=== PATIENT | female | born 1995 | race Caucasian/White ===

== ENCOUNTER 2018-04-04 01:09 | Outpatient (CLI) | payer BC, SELFPAY ==
--- NOTE | 2018-04-04 14:35 | DI.MRI_ITS ---
SYMPTOMS/DIAGNOSIS: RT KNEE INJURY, ACUTE TRAUMATIC INTERNAL DERANGEMENT, S83.104A MRI OF THE RIGHT KNEE: Comparison is made with plain films from [facility] dated [id number]. Proton density and fat suppressed T 2 sagittal, T 1 and fat suppressed T 2 coronal, fat suppressed T 2 axial and proton density oblique sagittal sequences were performed. There is mild edema in the anterior subcutaneous fat. No focal drainable collection is seen. Cruciate and collateral ligaments and extensor mechanism appear intact. No meniscal tears are seen. There is a minimal joint effusion. No cartilage defects are identified. IMPRESSION: Mild anterior soft tissue edema and minimal joint effusion. No evidence of ligament or meniscal tear.
== END 2018-04-04 01:29 ==
PROVIDERS: Visit Provider Student in an Organized Health Care Education/Training Program
DX: S83.104A Unspecified dislocation of right knee, initial encounter (principal); M79.89 Other specified soft tissue disorders; M25.461 Effusion, right knee
CPT/HCPCS: 73721

== ENCOUNTER 2019-09-16 02:14 | Outpatient (CLI) | payer BC, SELFPAY ==
--- NOTE | 2019-09-16 09:28 | DI.MRI_ITS ---
EXAM: MR LOWER JOINT RT WO CLINICAL HISTORY: RT KNEE PAIN, M25.561, CRUSH INJURY, S87.00XA. TECHNIQUE: Multiplanar multisequence MRI was performed.. COMPARISON: MR lower joint RT wo from 04/04/2018 FINDINGS: MR examination of the knee was performed according to the usual protocol. There is no significant bon y signal abnormality seen. The articular cartilage of all three joints appears within normal limits. The extensor mechanism appears normal. No retinacular injury. Hoffa fat pad is unremarkable. Cruciate ligaments appear intact. Menisci and attachments appear normal with no evidence of tear. No collateral ligament injury or posterolateral corner abnormality seen. IMPRESSION: Negative knee MRI. DATA REPOSITORY:
== END 2019-09-16 02:34 ==
PROVIDERS: PCP Family Medicine; Visit Provider Student in an Organized Health Care Education/Training Program
DX: M25.561 Pain in right knee (principal)
CPT/HCPCS: 73721

== ENCOUNTER 2019-10-17 15:45 | Outpatient (REF) | payer BC, SELFPAY ==
--- NOTE | 2019-10-17 13:30 | PAPFT_PTH ---
PATIENT: Bridget Chowdary LOC: [facility] U#:[id number] AGE/SX: 24/F ROOM: RE10/17/[address]: Sandra Garner : 1995 BED: DIS: 10/17/2019 SPEC #: [id number] RECD: 10/20/19 12:24 STATUS: LUISA REQ #: [id number] NEFTALI: 10/17/19 13:[address]: Sandra Garner DEPT: [facility] Cytology RECD BY: Sanchez Richardson ENTERED: 10/20/19 12:25 SP TYPE: PAPFT OTHR DR: Keith Campo Tissues: 1 - CX/ENDOCX FOR PAP SMEARS Procedures: PAP THIN PREP/UVM Screening Comments: [id number]
[2019-10-17 16:16] LABS: Abs Immature Grans 0.03 k/cumm (0.0-0.09); Absolute Basophil Count 0.02 k/cumm (0.0-0.2); Absolute Eosinophil Count 0.19 k/cumm (0.0-0.7); Absolute Monocyte Count 0.41 k/cumm (0.11-0.7); Basophils % 0.2; Eosinophils % 1.7; HCT 35.7 % (36.0-46.0); HGB 11.9 g/dL (12.0-15.5); Immature Grans % 0.3 %; Lymphocytes % 18.1; Mean Corp. HGB Concentration 33.3 g/dL (32.0-36.0); Mean Corpuscular Hemoglobin 29.9 pg (27.0-33.0); Mean Corpuscular Volume 89.7 fL (80-95); Monocytes % 3.7; Platelet Count 385 x1000/uL (130-400); RBC 3.98 m/cumm (4.00-5.20); RBC Distribution Width 12.4 % (11.7-14.6); White Blood Cell Count 11.02 k/cumm (4.4-10.8)
[2019-10-17 16:23] LABS: Absolute Lymphocyte Count 1.99 k/cumm (1.2-3.4); Absolute Neutrophil Count 8.38 k/cumm (1.2-6.7)
[2019-10-17 16:25] LABS: Glucose,1 Hr (Glucola) 130 mg/dL (80-140)
[2019-10-17 16:39] LABS: TSH (W/Ref FT4) 0.62 uIU/mL (0.36-3.74)
[2019-10-17 18:09] LABS: *AMPHETAMINES SCREEN URINE Negative (Negative); *BARBITURATES SCREEN URINE Negative (Negative); *BENZODIAZEPINES SCREEN URINE Negative (Negative); Cannabinoids THC Negative (Negative); Cocaine Screen,Urine Negative (Negative); METHADONE URINE SCREEN Negative (Negative); OPIATES URINE SCREEN Negative (Negative)
[2019-10-17 18:13] LABS: Tricyclic Antidepressants Negative (Negative)
[2019-10-20 11:00] LABS: Hepatitis B Surface Ag Negative (Negative)
[2019-10-20 11:14] LABS: HIV-1/2 Ag & Ab Screen Negative (Negative)
[2019-10-20 11:23] LABS: Hepatitis C Ab w Rflx HCV PCR Negative (Negative)
[2019-10-20 15:33] LABS: Chlamydia Result Negative (Negative); GC Result Negative (Negative)
[2019-10-21 07:04] LABS: Buprenorphine Negative; Norbuprenorphine Negative
[2019-10-21 12:21] LABS: Varicella IgG Antibody Positive (See Note)
[2019-10-21 12:32] LABS: Rubella IgG Ab (UVM) Positive (See Note); Syphilis Serology (RPR) Negative (Negative)
[2019-10-24 12:49] LABS: Specimen WB Whole Blood
[2019-10-24 15:18] LABS: Result Summary POSITIVE CARRIER (Negative); Specimen WB Whole Blood
== END 2019-10-17 16:05 ==
LOC: LBN 15:45
PROVIDERS: PCP Family Medicine; Visit Provider Advanced Practice Midwife
DX: Z34.91 Encounter for supervision of normal pregnancy, unspecified, first trimester (principal); Z11.4 Encounter for screening for human immunodeficiency virus [HIV]; Z11.3 Encounter for screening for infections with a predominantly sexual mode of transmission; Z11.59 Encounter for screening for other viral diseases; Z01.84 Encounter for antibody response examination; Z36.89 Encounter for other specified antenatal screening; Z12.4 Encounter for screening for malignant neoplasm of cervix
CPT/HCPCS: 80055; 80307; 81329; 82950; 86787; 86803; 86850; 86900; 86901; 87340; 87389; 87491; 87591; 88142; 81220; 84443; 86592; 86762; 87086

== ENCOUNTER 2019-10-23 09:12 | Outpatient (CLI) | payer BC, SELFPAY | END 2019-10-23 09:32 | PROVIDERS: PCP Family Medicine; Visit Provider Advanced Practice Midwife | DX: Z34.91 Encounter for supervision of normal pregnancy, unspecified, first trimester (principal); Z36.89 Encounter for other specified antenatal screening ==

== ENCOUNTER 2019-12-15 00:45 | Outpatient (CLI) | payer OTHER, SELFPAY ==
--- NOTE | 2019-12-15 07:15 | DI.US_ITS ---
EXAM: US OB 2-3 TRIMESTER CLINICAL HISTORY: routine pnc,O26.92. TECHNIQUE: Transabdominal obstetrical ultrasound performed. COMPARISON: No exams were available for comparison FINDINGS: Transabdominal obstetrical ultrasound performed. There is a single living intrauterine gestation. The fetus is in the cephalic presentation. h eart rate is 141 beats per minute. No anatomic abnormalities are identified. Amniotic fluid ap pears within normal limits visually. The placenta is anterior without evidence of previa. The place ntal tip is 3.75 cm from the internal cervical os. Estimated gestational age is 18 weeks 5 days. IMPRESSION: 1. Single live intrauterine gestation as above. 2. Normal anatomic survey. DATA REPOSITORY:
== END 2019-12-15 01:05 ==
PROVIDERS: PCP Family Medicine; Visit Provider Advanced Practice Midwife
DX: O26.92 Pregnancy related conditions, unspecified, second trimester (principal); Z3A.18 18 weeks gestation of pregnancy
CPT/HCPCS: 76805

== ENCOUNTER 2019-12-15 10:26 | Outpatient (CLI) | payer OTHER, SELFPAY ==
[2019-12-17 11:42] LABS: AFP 28.9 ng/mL; Cigarette smoking status non-Smoker; GA used in risk estimate Scan estimate; IVF Pregnancy No; Initial or repeat testing Initial testing; Insulin dependent diabetes No; Maternal Weight 207 lbs; Number of Fetuses 1; Physician Phone Number 802-748-7300; Prev Pregnancy w/NTD No; RECOMMENDED FOLLOW UP None.; Results Summary Normal risk
== END 2019-12-15 10:46 ==
PROVIDERS: PCP Family Medicine; Visit Provider Advanced Practice Midwife
DX: O26.92 Pregnancy related conditions, unspecified, second trimester (principal); Z36.89 Encounter for other specified antenatal screening
CPT/HCPCS: 82105

== ENCOUNTER 2020-02-24 04:51 | Outpatient (CLI) | payer OTHER, SELFPAY ==
[2020-02-24 11:28] LABS: Glucose,1 Hr (Glucola) 142 mg/dL (80-140)
[2020-02-24 11:34] LABS: HCT 31.6 % (36.0-46.0); HGB 10.5 g/dL (11.2-15.7); MCH 29.9 pg (27.0-33.0); MCHC 33.2 % (32.0-36.0); Platelet Count 286 10^3/uL (130-400); RBC 3.51 10^6/uL (3.93-5.22); RDW 13.2 % (11.7-14.6); RDW-SD 42.9 fL; WBC 12.31 10^3/uL (4.4-10.8)
== END 2020-02-24 05:11 ==
PROVIDERS: Advanced Practice Midwife; PCP Family Medicine; Visit Provider Obstetrics & Gynecology Gynecology
DX: Z34.90 Encounter for supervision of normal pregnancy, unspecified, unspecified trimester (principal)
CPT/HCPCS: 36415; 82950; 85027

== ENCOUNTER 2020-02-26 04:22 | Outpatient (CLI) | payer OTHER, SELFPAY ==
[2020-02-26 10:14] LABS: Glucose 1 Hour 176 mg/dL
[2020-02-26 12:17] LABS: Glucose 3 Hour 104 mg/dL
== END 2020-02-26 04:42 ==
PROVIDERS: PCP Family Medicine; Visit Provider Advanced Practice Midwife
DX: Z34.90 Encounter for supervision of normal pregnancy, unspecified, unspecified trimester (principal)
CPT/HCPCS: 36415; 82951

== ENCOUNTER 2020-04-20 09:29 | Outpatient (CLI) | payer OTHER, SELFPAY ==
[2020-04-20 09:36] VITALS: BP 138/86; PULSE 94; TEMP 37.2
[2020-04-20 09:53] VITALS: BP 145/76; PULSE 93
[2020-04-20 09:54] VITALS: BP 145/76; PULSE 93; RESP 20
[2020-04-20 09:55] LABS: HGB 11.4 g/dL (11.2-15.7); MCH 28.9 pg (27.0-33.0); MCHC 32.6 % (32.0-36.0); MCV 88.6 fL (80-95); Platelet Count 258 10^3/uL (130-400); RBC 3.95 10^6/uL (3.93-5.22); RDW 13.3 % (11.7-14.6); RDW-SD 43.3 fL
[2020-04-20 10:03] VITALS: BP 128/74; PULSE 93
[2020-04-20 10:09] LABS: ALT 18 U/L (14-59); AST 14 U/L (15-37); Albumin 2.6 g/dL (3.4-5.0); Alkaline Phosphatase 120 U/L (46-116); Anion Gap 9.7 mmol/L (3-11); BUN 7 mg/dL (7-18); Bilirubin, Total 0.2 mg/dL (0.2-1.0); CO2 22.3 mmol/L (21.0-32.0); CREATININE 0.71 mg/dL (0.55-1.02); Calcium 9.9 mg/dL (8.5-10.1); Chloride 103 mmol/L (98-107); Glucose 98 mg/dL (74-106); Potassium 3.5 mmol/L (3.5-5.1); Sodium 135 mmol/L (136-145); Total Protein 6.7 g/dL (6.4-8.2); Uric Acid 5.5 mg/dL (2.6-6.0)
--- NOTE | 2020-04-20 10:18 | W.OBNST ---
Date of service: 04/20/20 Time of Service: 10:18 NST Evaluation Reason for NST Reasons for Nonstress Test: OTHER, SEE COMMENT Reason for NST Other: Elevated b/p in office Gestational Age Gestational Age in Weeks and Days: 36 Weeks and 1Days Test and Monitor Explained Test/Monitor Explained: Test Explained, Monitor Explained and Patient Verbalized Understanding Vital Signs Blood Pressure: 138/86 Pulse: 94 Temperature: 99.0 F NST Information Date on Monitor: 04/20/20 Time on Monitor: 09:38 Date off Monitor: 04/20/20 Time off Monitor: 10:12 Total Time on Monitor: 34 NST Interventions: PO Hydration and Meal Given NST Evaluation Patient States Movement: Present FHR Baseline: 135 Variability: Moderate 6-25 bpm Accelerations: 15x15 Decelerations: None NST Results: Reactive Note NST Note Note: B.P. elevated at her office appointment today. The Blood pressure was lower x 3 at NST. Reactive NST. Bridget will take her own B.P this week as she is R.N. and report elevated B.P. Labs WNL. awaiting protein/creatinene ratio. RTO in 1 week. Signs of preeclampsia reviewed. NST Reviewed and Verified by: Sandra Garner
[2020-04-20 10:22] VITALS: BP 138/86; PULSE 94; TEMP 37.2
[2020-04-20 11:03] LABS: *AMPHETAMINES SCREEN URINE Negative (Negative); *BARBITURATES SCREEN URINE Negative (Negative); *BENZODIAZEPINES SCREEN URINE Negative (Negative); Cannabinoids THC Negative (Negative); Cocaine Screen,Urine Negative (Negative); METHADONE URINE SCREEN Negative (Negative); OPIATES URINE SCREEN Negative (Negative)
[2020-04-20 11:05] LABS: Tricyclic Antidepressants Negative (Negative)
[2020-04-20 11:08] LABS: PROTEIN 11.2 mg/dL
[2020-04-20 11:12] LABS: COMMENT (LAB VIEW ONLY) 75.53 mg/dL; Prot/Crea Ur Ratio 0.14
[2020-04-27 08:28] LABS: Buprenorphine Negative; Norbuprenorphine Negative
== END 2020-04-20 10:20 | disposition home or self-care (01) ==
LOC: BCD 09:30 → OBS 09:50
PROVIDERS: Advanced Practice Midwife; PCP Family Medicine; Visit Provider Advanced Practice Midwife
DX: O26.893 Other specified pregnancy related conditions, third trimester (principal); R03.0 Elevated blood-pressure reading, without diagnosis of hypertension; Z3A.36 36 weeks gestation of pregnancy
CPT/HCPCS: 36415; 59025; 80053; 80307; 85027; 82565; 84156; 84550; 87081

== ENCOUNTER 2020-05-08 15:33 | Inpatient (IN) | payer OTHER, BC, SELFPAY ==
[2020-05-08] VITALS (11 sets, daily range): BP systolic 123–139; BP diastolic 64–85; PULSE 63–118; RESP 18; TEMP 36.7–36.8; O2SAT 98–99
[2020-05-08 16:11] LABS: HCT 35.8 % (36.0-46.0); HGB 11.9 g/dL (11.2-15.7); MCHC 33.2 % (32.0-36.0); MCV 87.1 fL (80-95); MPV 10.7 fL (8.0-11.0); Platelet Count 261 10^3/uL (130-400); RBC 4.11 10^6/uL (3.93-5.22); RDW 13.7 % (11.7-14.6); WBC 12.86 10^3/uL (4.4-10.8)
--- NOTE | 2020-05-08 16:22 | HPE_ITS ---
Date of service: 05/08/20 Time of Service: 16:22 Assessment and Plan Assessment and plan (1) Uterine contractions: Start date: 05/08/20 Start time: 07:30 Status: Acute Assessment and plan: Admit to Center. Comfort measures. Covid- 19 test. Anticipate . OB-HPI Labor/Delivery History of Present Illness Reason for Visit: TERM LABOR Chief Complaint: Uterine Contractions. ANDRE Calculator Estimated Delivery Date Method Current WG Current Estimate 05/17/20 LMP (Certain) 38w 5d Other Estimates 05/15/20 Ultrasound #1 39w 0d Comments: Strong regular contractions at home with scant bloody show. Having regular contractions. Neg GBS. Used the tub after arrival and membranes ruptured spontaneously for clear fluid. History of Present Expected Delivery Route/Plan - CNM FOB/: Stephen Chowdary BG- Mary Grace GBS negative Specific Issues/Plan 1. Desires [place], CF and SMA. SMA and CF drawn 10/17/19. [place] to be drawn after 10 weeks, 1a. 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 Pt notified 10/23, will have FOB tested SAMY. 1b. Partner will be tested when he is on new health plan in November. Offered anatomy scan at [facility] with genetic counseling. 1c. 12/15/19: Pt decided not to pursue [facility] genetic counseling or level II usg. 1d. 12/15/19: AFP result low risk for NTD 1e. FOB had CF/SMA testing, is carrier screen negative for both CF & SMA 2. Elevated BMI - ASA daily at 12 weeks, early 1-hr VLQ=383 2a. GTT 142 - 3-hr GTT nml x4 3. Anemia H and H 10.5/31.6 , discuss regular PN vitamin with iron use Assessment: History Reviewed & Current [facility] Surgical History (Updated 10/17/19 @ 14:10 by Sandra Garner CNM) S/P tonsillectomy Family History (Updated 10/17/19 @ 14:28 by Sandra Garner CNM) Mother Breast cancer Thyroid disorder Graves disease - thyroidectomy Maternal Grandmother Breast cancer Paternal Grandmother Breast cancer Sister Diabetes type 1, half sister Father Gout High bone marrow iron stores Social History Smoking/Tobacco Use Status: Never Smoking risk assessment performed?: Yes Alcohol Intake: never Substance use type: does not use Current gender identity: female Do you feel safe at home: Yes Do you feel safe in your relationship?: Yes History History 2 Para 0 Hx # Term Pregnancies 0 Multiple births 0 Hx # Pregnancies 0 Ectopic pregnancies 0 AB induced 0 Hx Number of Living Children 0 AB spontaneous 1 Meds Home Medications and Allergies Home Medications Medication Instructions Recorded Confirmed Type aspirin 81 mg tablet,delayed 81 mg PO DAILY 11/14/19 05/08/20 History release pediatric [id number] 1 tab PO DAILY 02/09/20 05/08/20 History breast pump #1 05/05/20 05/08/20 Rx Allergies Allergy/AdvReac Type Severity Reaction Status Date / Time Penicillins Allergy Severe SERUM Verified 05/05/20 11:20 SICKNESS Exam Physical Exam Vital signs: Temp Pulse BP 98.2 F 107 H 139/78 05/08/20 15:56 05/08/20 15:53 05/08/20 15:53 Vital Signs Reviewed: Yes Constitutional Constitutional: no acute distress Detailed Labor and Delivery Exam Dilation: 5 Effacement (%): 100 station: -3 Cervix position: mid Consistency: soft Pisano Score: Cervical Points Exam 0 1 2 3 Dilation Closed 1-2cm 3-4 cm 5-6cm Effacement 0-30% 40-50% 60-70% 80% Consistency Firm Medium Soft Station -3 -2 -1,0 +1,+2 Position Posterior Mid Anterior Amniotic Membrane Status: Ruptured Rupture Method: Spontaneous Pooling: Positive Nitrazine: Positive Fetus A Heart Rate Baseline: 140 Monitor Accelerations: 15 X 15 Monitor Decelerations: None Variability: Moderate (6-25 BPM) Presentation: Cephalic Categories: Category I Est. Weight: 8 lb 8 oz Date of Membrane Rupture: 05/08/20 Time of Membrane Rupture: 16:14 Respiratory Exam Respiratory Exam: Normal Cardiovascular Exam Cardiovascular Exam: Normal Abdominal Exam Abdominal Exam: Normal Rectal Exam Rectal Exam: Normal Exam Exam: Normal Extremities Exam Extremities Exam: Normal Back/Spine/Pelvis Exam Pelvis Adequate: Yes Skin Exam Skin Exam: Normal Psychiatric Exam Psychiatric Exam: Normal Results Results Group Beta Strep: Negative Blood Type: A+ Rubella Status: Immune Varicella Immunity: Immune Abnormal Lab Findings: Abnormal Labs 05/08/20 14:00 WBC 12.86 H Hct 35.8 L Risk Assessment Risk for Shoulder Dystocia Historical/Initial OB: POSITIVE FOR: Pre- BMI>30; NEGATIVE FOR: Pelvic Abnormality, Previous Shoulder Dystocia or Previous Macrosomia 40 Weeks: NEGATIVE FOR: EFW> 4500 gms, Maternal Weight Gain >40lb or Post Dates Increased Risk?: No Delivery Plan @ 36wks: spont labor and Risk for Pre-Eclampsia Daily Dose ASA Indicated: Yes (pre preg bmi >30 , familial hx of pre-e) Date Initiated/Initials: started ASA after 12 wks Yes, if one or more: NEGATIVE FOR: Hx Pre-E/Gest HTN, Chronic HTN, Multiple Gestation, Pre-gestational DM, Renal Disease, Systemic Lupus or APA Syndrome Yes, if 2 or more: POSITIVE FOR: Nulliparity, BMI>30 and Mother/Sister w/ Pre-E; NEGATIVE FOR: Age>= 35 yrs, >10yr btwn pregnancies, ethinicty or Previous IUGR Risk for Post- Hemorrhage Initial: NEGATIVE FOR: Multiple Gestation, Previous PPH, Known Clotting Deficiency, Grand Multiparity or Anticoagulation At Risk?: No Counseled re: Active Management: Yes Date/Initials: @ 36 wks: pt aware of elements of active mangmnt Risks Reviewed Risks Reviewed Upon Admission: Yes
[2020-05-08] MEDS: Oxytocin 10 UNITS/ML VIAL IM (17:30)
--- NOTE | 2020-05-08 18:07 | W.OBDELIVERY ---
Date of service: 05/08/20 Time of Service: 18:08 OB Labor/ Delivery Information Baby A Delivery Delivery Method: Spontaneaous Presentation: Cephalic Cephalic Position: Vertex Vertex Position: Left Occipital Transverse Cord Description-Baby A: 3 Vessels Amniotic Fluid: Clear Estimated Blood Loss: 350 Delivery Outcome: Liveborn Infant Transferred: Remains with Mother Note: FHTs 120-130 during first stage of labor. FHTs 118-120 in second stage. Progressed to full dilation and began pushing. Spontaneous delivery of female infant delivered in occiput transverse position with transverse shoulders. Baby was placed on mother's abdomen and dried and stimulated. Spontaneous cry. Cord was clamped and cut by the baby's father . The placenta delivered spontaneously and appears to by intact with a three vessel cord. Pitocin 10 units IM was administered after delivery of the placenta. The perineum was inspected and a 2nd degree laceration was repaired under local anesthetic and Bridget tolerated repair well. The baby did breastfeed. After delivery, Mother and baby Mary Grace and father of the baby were stable and bonding well in the delivery room. Providers Doctor: Sandra Garner Nurse Design Engineering Intern: Sandra Garner Nurse: Danette Kaur Nurse: Betty Beaulieu Labor/Delivery Information Number of Babies in Womb: 1 Steroids Given: None Reason Steroids Not Administered: N/A Group Beta Strep: N/A Antibiotics Administered: No Rubella Status: Immune Blood Type: A+ Varicella Immunity: Immune Medication in Delivery: none Maternal Complications: None Shoulder Dystocia: No Stages of Labor Onset of Labor Date: 05/08/20 ROM Baby A: 05/08/20 ROM Baby A: 16:14 ROM Total Time- Baby A: [id number] Delivery Date-Baby A: 05/08/20 Delivery Time-Baby A: 17:23 Placenta Delivery Date-Baby A: 05/08/20 Placenta Delivery Time-Baby A: 17:30 Labor-Stage 3 Duration: 7 minutes Placenta Status: Delivered Baby A Infant Gender: Female Gestational Status: Early Term (37-38.6 wks) Gestational Age in Weeks/Days: 38 Weeks and 5 Days Score-1 Minute Interval(Baby A) Heart Rate-1 minute: 100 BPM or Greater Respiratory Effort- 1 minute: Spontaneous/Strong Cry Muscle Tone-1 minute: Active Movement Reflex Response-1 minute: Prompt Response Color-1 minute: Bluish Hands or Feet Total Score-1 minute: 9 Score-5 Minute Interval(Baby A) Heart Rate- 5 minute: 100 BPM or Greater Respiratory Effort-5 minute: Spontaneous/Strong Cry Muscle Tone-5 minute: Active Movement Reflex Response-5 minute: Prompt Response Color-5 minute: Bluish Hands or Feet Total Score- 5 minute: 9 Interventions Repair of Laceration Type: Perineal , Laceration Extension: Second Degree . Sponge Count Correct: No Sponges Placed in Vagina , Sharp Count Correct: Yes .
[2020-05-09 06:28] LABS: HCT 30.8 % (36.0-46.0); HGB 10.2 g/dL (11.2-15.7); MCH 29.3 pg (27.0-33.0); MCHC 33.1 % (32.0-36.0); MCV 88.5 fL (80-95); MPV 10.6 fL (8.0-11.0); Platelet Count 254 10^3/uL (130-400); RBC 3.48 10^6/uL (3.93-5.22); RDW 13.6 % (11.7-14.6); RDW-SD 43.8 fL; WBC 16.19 10^3/uL (4.4-10.8)
[2020-05-09 09:45] VITALS: BP 99/66; PULSE 89; RESP 16; TEMP 37; O2SAT 99
--- NOTE | 2020-05-09 14:28 | NUR.NOTE ---
Chris RN CLC at bedside for consultNursing Note:
--- NOTE | 2020-05-09 17:26 | W.PM.OBDISCH ---
Date of service: 05/09/20 Time of Service: 17:26 DS: Diagnosis Discharge Diagnosis (1) Normal vaginal delivery: Status: Acute Asessment and Plan: Caring for baby independently. Pain is managed well with oral analgesics. Voiding without difficulty. well. She is receiving assistance with latch due to sore nipples. A - stable mother and baby , Post day 1 P - Discharge to home . Routine post instructions. [facility] Discharge Plan Disposition Patient Disposition: HOME Condition: Good Discharge Details Reason For Visit: TERM LABOR Admit Date/Time: 05/08/20 15:33 Admit Provider: Sandra Garner Attending Provider: Sandra Garner Primary Care Provider: Keith Campo Home Meds and New Rx's Prescriptions: No Action Flintstones Complete (iron) Tablet,Chewable 1 tab PO DAILY RF: 0 (DME) breast pump Device See Rx Instructions .ROUTE .MEDSUPPLY Qty: 1 RF: 0 aspirin [Aspirin Low Dose] 81 mg tablet,delayed release (DR/EC) 81 mg PO DAILY RF: 0 Discharge Instructions Instructions: Vaginal Delivery (DC) Activity:: Activity as Tolerated Equipment/Supplies:: No Equipment Needed Diet:: Normal Diet Discharge Orders Discharge Orders: Discharge Order (Routine); Ordered 05/09/20 Ordered By: Sandra Garner OB:DS Summary Summary Vaginal Delivery Method: Spontaneaous Laceration Description: Perineal Laceration Extension: Second Degree Contraception Discussed Contraception Discussed: No, Infant Gender-Baby A: Female weight: 8 lb 3.396 oz Status at Discharge Functional status at discharge: independent ambulation Overall status at discharge: patient is back to baseline Mental Status: mental status grossly normal Speech and Movement: speech and movement normal Mood: congruent mood Affect: normal affect Exam Physical Exam Vital signs: Temp Pulse Resp BP Pulse Ox 98.6 F 89 16 99/66 L 99 05/09/20 09:45 05/09/20 09:45 05/09/20 09:45 05/09/20 09:45 05/09/20 09:45 Vital Signs Reviewed: Yes Constitutional Constitutional: no acute distress Breast Exam tenderness nipples bilaterally: Nipple Exam: Other (cracking of right nipple) Abdominal Exam Comments: no tenderness Fundal Exam Fundus: Below Umbilicus Rectal Exam Rectal Exam: Normal Exam Patient deferred: external exam Perineum: Other (well- approximated) Extremities Exam Extremity Exam: Normal Skin Exam Skin Exam: Normal Psychiatric Exam Psychiatric Exam: Normal [facility] Surgical History (Updated 10/17/19 @ 14:10 by Sandra Garner CNM) S/P tonsillectomy Family History (Updated 10/17/19 @ 14:28 by Sandra Garner CNM) Mother Breast cancer Thyroid disorder Graves disease - thyroidectomy Maternal Grandmother Breast cancer Paternal Grandmother Breast cancer Sister Diabetes type 1, half sister Father Gout High bone marrow iron stores Social History Smoking/Tobacco Use Status: Never Smoking risk assessment performed?: Yes Alcohol Intake: never Substance use type: does not use Current gender identity: female Do you feel safe at home: Yes Do you feel safe in your relationship?: Yes History History 2 Para 0 Hx # Term Pregnancies 0 Multiple births 0 Hx # Pregnancies 0 Ectopic pregnancies 0 AB induced 0 Hx Number of Living Children 0 AB spontaneous 1 DS: Data Vitals/I&O Vitals and I&O: Vital Signs Temperature 98.6 F 05/09/20 09:45 Pulse 89 05/09/20 09:45 Pulse Rhythm Regular 05/09/20 09:45 Respiratory Rate 16 05/09/20 09:45 Respiratory Depth Normal 05/08/20 23:47 Blood Pressure 99/66 L 05/09/20 09:45 Blood Pressure Mean 77 05/09/20 09:45 Pulse Oximetry 99 05/09/20 09:45 Oxygen Delivery Method Room Air 05/08/20 15:56 Oxygen Flow Rate 0 05/08/20 15:56 Pain Level 1 05/09/20 09:45 Intake & Output 05/08/20 05/09/20 05/09/20 23:59 11:59 23:59 Output Total 550 / 550 Balance -550 / -550 Weight 219 lb Output: Urine 550 / 550 Other: Urine Color Yellow Yellow Data Completed and Pending Labs on day of discharge: Labs from last 24 hours 05/09/20 06:17 WBC 16.19 H RBC 3.48 L Hgb 10.2 L Hct 30.8 L MCV 88.5 MCH 29.3 MCHC 33.1 RDW 13.6 Plt Count 254 MPV 10.6
[2020-05-10 17:30] LABS: COVID-19 RT-PCR UVMMC Result Negative (Negative)
[2020-05-12 18:55] VITALS: BP 139/87; PULSE 93
== END 2020-05-09 18:45 | disposition home or self-care (01) | DRG 807 ==
PROVIDERS: Admitting Provider Advanced Practice Midwife; PCP Family Medicine; Visit Provider Advanced Practice Midwife
DX: O70.1 Second degree perineal laceration during delivery (principal); Z37.0 Single live birth; O92.29 Other disorders of breast associated with pregnancy and the puerperium; Z3A.39 39 weeks gestation of pregnancy; Z11.59 Encounter for screening for other viral diseases; Z67.10 Type A blood, Rh positive
CPT/HCPCS: 36415; 85027; 86850; 86900; 86901; U0003; J2590

== ENCOUNTER 2020-05-10 09:12 | Outpatient (CLI) | payer OTHER, SELFPAY | END 2020-05-10 09:32 | PROVIDERS: PCP Family Medicine; Visit Provider Advanced Practice Midwife | DX: R69 Illness, unspecified (principal) | CPT/HCPCS: E0602 ==

== ENCOUNTER 2020-06-23 21:01 | Outpatient (REF) | payer OTHER, BC, SELFPAY ==
[2020-06-26 08:03] LABS: Chlamydia Result Negative (Negative); GC Result Negative (Negative)
== END 2020-06-23 21:21 ==
LOC: LBO 21:01
PROVIDERS: PCP Family Medicine; Visit Provider Advanced Practice Midwife
DX: Z39.2 Encounter for routine postpartum follow-up (principal); Z30.430 Encounter for insertion of intrauterine contraceptive device
CPT/HCPCS: 87491; 87591

== ENCOUNTER 2021-03-31 19:10 | Outpatient (REF) | payer OTHER, SELFPAY ==
[2021-04-02 11:43] LABS: COVID-19 RT-PCR UVMMC Result Negative (Negative)
== END 2021-03-31 19:11 | disposition home or self-care (01) ==
LOC: LBN 19:10
PROVIDERS: Visit Provider Nurse Practitioner Family
DX: Z20.822 Contact with and (suspected) exposure to COVID-19 (principal)
CPT/HCPCS: U0003

== ENCOUNTER 2021-07-20 11:24 | Outpatient (CLI) | payer OTHER, SELFPAY ==
[2021-07-20 12:04] LABS: Source Nasal/Nares
[2021-07-20 12:46] LABS: COVID-19 PCR Negative (Negative)
== END 2021-07-20 11:25 | disposition home or self-care (01) ==
LOC: LBN 11:29
PROVIDERS: Visit Provider Obstetrics & Gynecology
DX: Z20.822 Contact with and (suspected) exposure to COVID-19 (principal)
CPT/HCPCS: 87635

== ENCOUNTER 2021-10-06 15:21 | Outpatient (REF) | payer OTHER, SELFPAY ==
[2021-10-06 12:19] LABS: HCG Quant, Pregnancy 29 mIU/mL (1-3)
== END 2021-10-06 15:22 | disposition home or self-care (01) ==
LOC: LBN 15:21
PROVIDERS: Visit Provider Advanced Practice Midwife
DX: N92.6 Irregular menstruation, unspecified (principal)
CPT/HCPCS: 84702

== ENCOUNTER 2021-10-10 08:10 | Outpatient (REF) | payer OTHER, SELFPAY ==
[2021-10-10 08:57] LABS: HCG Quant, Pregnancy 8 mIU/mL (1-3)
== END 2021-10-10 08:11 | disposition home or self-care (01) ==
LOC: LBN 08:10
PROVIDERS: Visit Provider Advanced Practice Midwife
DX: N92.5 Other specified irregular menstruation (principal)
CPT/HCPCS: 84702

== ENCOUNTER 2022-04-29 08:30 | Outpatient (REF) | payer OTHER, SELFPAY ==
[2022-04-30 18:50] LABS: Estradiol 28 pg/mL (See Note); Progesterone 0.3 ng/mL (See Table)
[2022-05-01 09:11] LABS: FSH 8.3 mIU/mL (See Note); LH 4.7 mIU/mL (See Note)
[2022-05-01 09:55] LABS: Insulin 14.8 uIU/mL (<29.0)
[2022-05-02 09:31] LABS: Antimullerian Hormone 1.4 ng/mL (0.89-9.9)
[2022-05-05 21:12] LABS: Testosterone, Free 0.42 ng/dL (<0.13-1.06); Testosterone, Total 17 ng/dL (8-60)
== END 2022-04-29 08:31 | disposition home or self-care (01) ==
LOC: LBN 08:30
PROVIDERS: Visit Provider Advanced Practice Midwife
DX: Z31.9 Encounter for procreative management, unspecified (principal)
CPT/HCPCS: 84402; 84403; 82670; 83001; 83002; 83520; 83525; 84144; 84146

== ENCOUNTER 2022-06-11 12:07 | Outpatient (CLI) | payer OTHER, SELFPAY ==
[2022-06-11 13:20] LABS: HCG Quant, Pregnancy 3067 mIU/mL (1-3)
== END 2022-06-11 12:08 | disposition home or self-care (01) ==
LOC: LBO 12:07
PROVIDERS: Visit Provider Advanced Practice Midwife
DX: O20.8 Other hemorrhage in early pregnancy (principal); Z3A.00 Weeks of gestation of pregnancy not specified
CPT/HCPCS: 84702

== ENCOUNTER 2022-06-20 08:11 | Outpatient (CLI) | payer OTHER, SELFPAY ==
[2022-06-20 09:09] LABS: HCG Quant, Pregnancy 35 mIU/mL (1-3)
== END 2022-06-20 08:12 | disposition home or self-care (01) ==
LOC: BCD 08:13
PROVIDERS: Advanced Practice Midwife; Visit Provider Advanced Practice Midwife
DX: O20.9 Hemorrhage in early pregnancy, unspecified (principal)
CPT/HCPCS: 84702

== ENCOUNTER 2022-06-26 11:20 | Outpatient (CLI) | payer OTHER, SELFPAY ==
[2022-06-26 13:52] LABS: Hemoglobin A1C 5.5 % (<5.7)
[2022-06-26 14:23] LABS: HCG Quant, Pregnancy 3 mIU/mL (1-3); TSH (W/Ref FT4) 1.05 uIU/mL (0.36-3.74)
[2022-06-27 19:28] LABS: Thyroperoxidase Antibody <28 U/mL (<=60)
[2022-06-28 08:58] LABS: Hepatitis B Surface Ag Negative (Negative)
[2022-06-28 10:46] LABS: Hepatitis C Ab w Rflx HCV PCR Negative (Negative)
[2022-06-28 13:25] LABS: Chlamydia Result Negative (Negative); GC Result Negative (Negative)
[2022-06-28 16:25] LABS: HIV-1/2 Ag & Ab Screen Negative (Negative)
[2022-06-28 23:34] LABS: Syphilis IgG w/Reflex Nonreactive (Nonreactive)
[2022-06-29 10:35] LABS: Hep B Core Antibody Negative (Negative)
[2022-06-29 23:17] LABS: Dilute Russell Viper Venom 38.1 secs (25.2-42.2); LA Cascade Summary (See Note); Silica Clotting Time 52.1 secs (30.2-48.4)
[2022-06-30 13:05] LABS: Beta 2 Glycoprotein 1 Ab IgA <9.4 U/mL
[2022-08-01 16:42] LABS: Chromosome Analysis(UVM) (See below)
== END 2022-06-26 11:21 | disposition home or self-care (01) ==
LOC: BCD 11:28 → LBO 12:17
PROVIDERS: Visit Provider Obstetrics & Gynecology
DX: N96 Recurrent pregnancy loss (principal)
CPT/HCPCS: 36415; 86146; 86704; 86803; 87116; 87340; 87389; 87491; 87591; 83036; 84443; 84702; 86147; 86376; 86780; 88230; 88262

== ENCOUNTER 2022-09-06 13:19 | Outpatient (REF) | payer OTHER, SELFPAY ==
[2022-09-06 11:46] LABS: HCG Quant, Pregnancy 496 mIU/mL (1-3)
[2022-09-06 22:30] LABS: Progesterone 17.4 ng/mL (See Table)
== END 2022-09-06 13:20 | disposition home or self-care (01) ==
LOC: LBN 13:19
PROVIDERS: Visit Provider Obstetrics & Gynecology
DX: N91.0 Primary amenorrhea (principal); N96 Recurrent pregnancy loss
CPT/HCPCS: 84144; 84702

== ENCOUNTER 2022-09-13 11:00 | Outpatient (CLI) | payer OTHER, SELFPAY ==
[2022-09-13 13:01] LABS: HCG Quant, Pregnancy 9353 mIU/mL (1-3)
== END 2022-09-13 11:01 | disposition home or self-care (01) ==
LOC: BCD 11:43 → LBO 12:03
PROVIDERS: Visit Provider Obstetrics & Gynecology
DX: N91.0 Primary amenorrhea (principal); N96 Recurrent pregnancy loss
CPT/HCPCS: 84702

== ENCOUNTER 2022-10-27 01:28 | Outpatient (CLI) | payer OTHER, SELFPAY ==
[2022-10-27 14:36] LABS: Abs Immature Grans 0.04 10^3/uL (0.0-0.06); Absolute Basophil Count 0.03 10^3/uL (0.0-0.2); Absolute Eosinophil Count 0.21 10^3/uL (0.0-0.7); Absolute Lymphocyte Count 1.86 10^3/uL (1.2-3.4); Absolute Monocyte Count 0.38 10^3/uL (0.1-0.8); Absolute Neutrophil Count 7.35 10^3/uL (1.2-6.7); Basophils % 0.3; Eosinophils % 2.1; HCT 35.8 % (36.0-46.0); Immature Grans % 0.4; Lymphocytes % 18.8; MCH 29.8 pg (27.0-33.0); MCHC 33.5 % (32.0-36.0); MCV 89 fL (80-95); MPV 9.4 fL (8.0-11.0); Monocytes % 3.9; Neutrophils % 74.5; Platelet Count 330 10^3/uL (130-400); RBC 4.03 10^6/uL (3.93-5.22); RDW 12.4 % (11.7-14.6); RDW-SD 40.8 fL; WBC 9.87 10^3/uL (4.4-10.8)
[2022-10-27 14:45] LABS: Glucose,1 Hr (Glucola) 122 mg/dL (80-140)
[2022-10-30 10:18] LABS: Hepatitis C Ab w Rflx HCV PCR Negative (Negative)
[2022-10-30 10:21] LABS: Hepatitis B Surface Ag Negative (Negative)
[2022-10-30 10:30] LABS: HIV-1/2 Ag & Ab Screen Negative (Negative)
[2022-10-30 10:45] LABS: Rubella IgG Ab (UVM) Positive (See Note); Varicella IgG Antibody Positive (See Note)
[2022-10-31 19:11] LABS: Syphilis IgG w/Reflex Nonreactive (Nonreactive)
== END 2022-10-27 01:29 | disposition home or self-care (01) ==
LOC: LBO 01:28
PROVIDERS: Visit Provider Advanced Practice Midwife
DX: Z34.91 Encounter for supervision of normal pregnancy, unspecified, first trimester (principal); Z3A.11 11 weeks gestation of pregnancy
CPT/HCPCS: 36415; 82950; 86787; 86803; 86850; 86900; 86901; 87340; 87389; 85025; 86762; 86780

== ENCOUNTER 2022-10-27 13:49 | Outpatient (REF) | payer OTHER, SELFPAY ==
--- NOTE | 2022-10-27 13:45 | PAPFT_PTH ---
PATIENT: Bridget Chowdary LOC: [facility] U#:[id number] AGE/SX: 27/F ROOM: RE10/27/[address]: Sandra Soliz CNM : 1995 BED: DIS: 10/27/2022 SPEC #: [id number] RECD: 10/27/22 17:41 STATUS: LUISA REQ #: [id number] NEFTALI: 10/27/22 13:[address]: Sandra Soliz DEPT: [facility] Cytology RECD BY: Juanita Manuel Tissues: 1 - CX/ENDOCX FOR PAP SMEARS Procedures: PAP THIN PREP/UVM Screening Comments: [id number] (CHLAMYDIA/GC)
[2022-10-30 14:36] LABS: Chlamydia Result Negative (Negative); GC Result Negative (Negative)
== END 2022-10-27 13:50 | disposition home or self-care (01) ==
LOC: LBN 13:49
PROVIDERS: Visit Provider Advanced Practice Midwife
DX: Z34.91 Encounter for supervision of normal pregnancy, unspecified, first trimester (principal); Z11.3 Encounter for screening for infections with a predominantly sexual mode of transmission; Z12.4 Encounter for screening for malignant neoplasm of cervix; Z3A.11 11 weeks gestation of pregnancy
CPT/HCPCS: 87491; 87591; 88142; 87086

== ENCOUNTER 2022-12-22 00:06 | Outpatient (CLI) | payer OTHER, SELFPAY ==
--- NOTE | 2022-12-22 06:30 | DI.US_ITS ---
Exam(s) US OB 2-3 TRIMESTER W MOD EXAM: US OB 2-3 TRIMESTER W MOD CLINICAL HISTORY: morphology,z34.90. TECHNIQUE: Transabdominal obstetrical ultrasound performed. COMPARISON: US POCUS EXAM from 09/20/2022 US POCUS EXAM from 10/04/2022 FINDINGS: Number of fetuses: One. position: Variable Placental grade: 1 Placental location: Anterior no evidence of previa. BIOMETRIC DATA: BPD: 47mm = 20+ 1 weeks HC: 181mm = 20+ 4 weeks AC: 161mm = 21+1 weeks FL: 31mm = 19+ 5 weeks Cisterna Magna: 4 mm Cerebellum: 1.8 cm EFW: 356 grms 86% Composite Age: 20+ 3 weeks EDC by US: May 17 Heart Rate: 145BPM Amniotic fluid : Amount of fluid is within normal limits. ANATOMICAL SURVEY: Four-chambered heart: Unremarkable. LVOT: Unremarkable. RVOT: Unremarkable. Left-sided stomach: Unremarkable. urinary bladder: Unremarkable. Bilateral kidneys: Unremarkable. Three-vessel cord: Unremarkable. Cord insertion: Unremarkable. Posterior fossa:Unremarkable. ventricles: Unremarkable. nose: Not well seen lips: Not well seen palate: Unremarkable. spine: Unremarkable. Two arms and two legs: Unremarkable. IMPRESSION: 1. Single live intrauterine gestation as above. 2. Normal anatomic survey. The nose and lips were not well seen. Patient is scheduled t o return 29 December 2022 for additional images. DATA REPOSITORY:
== END 2022-12-22 00:26 ==
PROVIDERS: Visit Provider Advanced Practice Midwife
DX: Z34.90 Encounter for supervision of normal pregnancy, unspecified, unspecified trimester (principal)
CPT/HCPCS: 76805

== ENCOUNTER 2023-02-13 04:28 | Outpatient (CLI) | payer OTHER, SELFPAY ==
[2023-02-13 07:43] LABS: HCT 35.2 % (36.0-46.0); HGB 11.6 g/dL (11.2-15.7); MCH 29.6 pg (27.0-33.0); MCV 90 fL (80-95); MPV 9.7 fL (8.0-11.0); Platelet Count 311 10^3/uL (130-400); RBC 3.92 10^6/uL (3.93-5.22); RDW 13.4 % (11.7-14.6); RDW-SD 43.8 fL; WBC 12.82 10^3/uL (4.4-10.8)
[2023-02-13 07:53] LABS: Glucose,1 Hr (Glucola) 122 mg/dL (80-140)
== END 2023-02-13 04:29 | disposition home or self-care (01) ==
LOC: LBO 04:29
PROVIDERS: Visit Provider Advanced Practice Midwife
DX: Z34.92 Encounter for supervision of normal pregnancy, unspecified, second trimester (principal); Z3A.27 27 weeks gestation of pregnancy
CPT/HCPCS: 36415; 82950; 85027

== ENCOUNTER 2023-04-17 16:12 | Outpatient (REF) | payer OTHER, SELFPAY ==
[2023-04-18 17:58] LABS: *AMPHETAMINES SCREEN URINE Negative (Negative); *BARBITURATES SCREEN URINE Negative (Negative); *BENZODIAZEPINES SCREEN URINE Negative (Negative); Cannabinoids THC Negative (Negative); Cocaine Screen,Urine Negative (Negative); METHADONE URINE SCREEN Negative (Negative); OPIATES URINE SCREEN Negative (Negative)
[2023-04-18 18:03] LABS: Tricyclic Antidepressants Negative (Negative)
== END 2023-04-17 16:13 | disposition home or self-care (01) ==
LOC: LBN 16:12
PROVIDERS: Visit Provider Advanced Practice Midwife
DX: Z34.93 Encounter for supervision of normal pregnancy, unspecified, third trimester (principal); Z88.0 Allergy status to penicillin
CPT/HCPCS: 80307; 87081

== ENCOUNTER 2023-05-01 15:35 | Inpatient (IN) | payer OTHER, SELFPAY ==
[2023-05-01] VITALS (9 sets, daily range): BP systolic 128–140; BP diastolic 60–86; PULSE 82–110; RESP 17–18; TEMP 36.8
--- NOTE | 2023-05-01 16:11 | HPE_ITS ---
Date of service: 05/01/23 Time of Service: 15:35 Assessment and Plan Assessment and plan (1) 38 weeks gestation of : Status: Acute Assessment and plan: A: 27 yo @ 38+1 wks Spontaneous onset labor, unknown SROM 2nd stage of labor low risk for SD and PPH, category 1 tracing P: Preparing for imminent delivery OB-HPI Labor/Delivery History of Present Illness Reason for Visit: Term Labor Chief Complaint: Other (feeling urge to push). ANDRE Calculator Estimated Delivery Date Method WG Current Estimate 05/14/23 Manual Other Estimates 05/13/23 Ultrasound #1 Delivery Date-Baby A 05/01/23 38w 1d History of Present Expected Delivery Route/Plan - CNM FOB/ - Stephen Chowdary (2nd child together) BG Likes to use the shower for labor, Stephen will be support GBS negative Specific Issues/Plan 1. CF and SMA Carrier - FOB tested 2019 and negative. 2. Hx of loss - Nml US x2, left CL cyst, vaginal progesterone until 12 weeks. 3. BMI 35 - early [id number]=115 4. Anatomy scan with limited views of face, repeat US shows normal anatomy 5. Right SI joint pain, seeing chiropractor & sleeve setter 6. Tdap given 02/28/23; Flu vaccine 04/13; RSV 04/13 Assessment: History Reviewed & Current Review of Systems Narrative: ROS noncontributory other than HPI PFSH All Active Problems (Updated 05/01/23 @ 16:26 by Mary Peters) 38 weeks gestation of (Acute) Penicillin allergy (Acute) BMI 35.0-35.9,adult (Acute) Carrier of spinal muscular atrophy (Acute) FOB tested in 2019 and is negative Cystic fibrosis carrier (Acute) FOB was tested in 2019 and found to be negative (Acute) Medical History History of miscarriage Infertility management Injury, crush, knee Recurrent loss Surgical History S/P tonsillectomy Family History Mother Breast cancer Thyroid disorder Graves disease - thyroidectomy Maternal Grandmother Breast cancer Paternal Grandmother Breast cancer Sister Diabetes type 1, half sister Father Gout High bone marrow iron stores Hypertension Social History Smoking risk assessment performed?: No Alcohol Intake: never Substance use type: does not use Current gender identity: female Do you feel safe at home: Yes Do you feel safe in your relationship?: Yes History History 5 Para 1 Hx # Term Pregnancies 1 Multiple births 0 Hx # Pregnancies 0 Ectopic pregnancies 0 AB induced 0 Hx Number of Living Children 1 AB spontaneous 3 Past Pregnancies Del. Date GA/Weeks # Preg Succ Route Wgt Sex Labor Lgth Anesth esia Location Prov Complic 02/04/19 6 05/08/20 38 No vaginal 8 lb 3.4 oz Female 6 Oscar Garner CNM 10/07/21 6 05/02/22 6 No No Delivery Date: 02/04/19 Last Updated by: Sandra Soliz CNM SAB no interventions Delivery Date: 05/08/20 Last Updated by: VAISHALI Del Rosario; 2nd degree laceration, repaired. Delivery Date: 10/07/21 Last Updated by: Sandra Soliz CNM SAB no complications Meds Allergies and Home Medications Allergies Allergy/AdvReac Type Severity Reaction Status Date / Time Penicillins Allergy Severe SERUM Verified 04/25/23 14:43 SICKNESS Home Medications Medication Instructions Recorded Confirmed Type vits no.126-ferrous fum 1 tab PO DAILY 10/27/22 05/01/23 History 28 mg iron-folic acid 800 mcg tablet (Classic ) Exam Physical Exam Vital Signs Reviewed: Yes Constitutional Constitutional: moderate distress, obese and cooperative Detailed Labor and Delivery Exam Dilation: 10 station: +1 Pisano Score: Cervical Points Exam 0 1 2 3 Dilation Closed 1-2cm 3-4 cm 5-6cm Effacement 0-30% 40-50% 60-70% 80% Consistency Firm Medium Soft Station -3 -2 -1,0 +1,+2 Position Posterior Mid Anterior Amniotic Membrane Status: Ruptured (unknown time) Contraction Frequency(min): q 3-4 Contraction Intensity: Moderate/Strong Fetus A Heart Rate Baseline: 140 Monitor Accelerations: 15 X 15 Monitor Decelerations: None Variability: Moderate (6-25 BPM) Categories: Category I Est. Weight: 7 lb 0.877 oz Est. Weight: 3200 gms Date of Membrane Rupture: 05/01/23 Time of Membrane Rupture: 15:40 HEENT Exam HEENT Exam: Normal Neck Exam Neck Exam: Normal Chest/Brest/Axilla Exam Chest Exam: Normal Breast Exam Breast Exam: Not Done Respiratory Exam Respiratory Exam: Normal Cardiovascular Exam Cardiovascular Exam: Normal Abdominal Exam Abdominal Exam: Normal (Gravid) Rectal Exam Rectal Exam: Normal Exam Exam: Normal Extremities Exam Extremities Exam: Normal Back/Spine/Pelvis Exam Back Exam: Normal Pelvis Adequate: Yes Skin Exam Skin Exam: Normal Neurological Exam Neurological Exam: Normal Psychiatric Exam Psychiatric Exam: Normal Results Results Group Beta Strep: Negative Blood Type: A+ Rubella Status: Immune Varicella Immunity: Immune Risk Assessment Risk for Shoulder Dystocia Historical/Initial OB: POSITIVE FOR: Pre- BMI>30; NEGATIVE FOR: Pelvic Abnormality, Previous Shoulder Dystocia or Previous Macrosomia Increased Risk?: No Date/Initial: 10/27/22; Delivery Plan @ 36wks: spont labor and Risk for Pre-Eclampsia Date Initiated/Initials: reviewed risks with pt, low dose ASA declined. 11/21/22 jk Yes, if one or more: NEGATIVE FOR: Hx Pre-E/Gest HTN, Chronic HTN, Multiple Gestation, Pre-gestational DM, Renal Disease, Systemic Lupus or APA Syndrome Yes, if 2 or more: POSITIVE FOR: BMI>30 and Mother/Sister w/ Pre-E; NEGATIVE FOR: Nulliparity, Age>= 35 yrs, >10yr btwn pregnancies, ethinicty or Previous IUGR Risk for Post- Hemorrhage Initial: NEGATIVE FOR: Multiple Gestation, Previous PPH, Known Clotting Deficiency, Grand Multiparity or Anticoagulation At Risk?: No Risks Reviewed Risks Reviewed Upon Admission: Yes
--- NOTE | 2023-05-01 16:24 | OBVDS_ITS ---
Date of service: 05/01/23 Time of Service: 16:15 OB Labor/ Delivery Information Baby A Delivery Delivery Method: Spontaneaous Presentation: Cephalic Cephalic Position: Vertex Vertex Position: Left Occipital Anterior Cord Description-Baby A: 3 Vessels Amniotic Fluid: Clear Estimated Blood Loss: 200 Delivery Outcome: Liveborn Transferred: Remains with Mother Note: Pt presented to center nurses station stating she was feeling an urge to push. She had been resting when she felt a few strong contractions and timed a few starting at 1511, they were 5 minutes apart but she began to feel rectal pressure. Admitted to birthing room and assisted with removal of clothing, SVE for 10/+1 station and SROM confirmed though pt unable to determine when that had happened. FHT's on monitor for 10 minutes determined to be category 1, pt rolled to kneeling on the bed, 2nd stage huddle completed, of a vigorous female over intact perineum, infant handed to mother's arms immediately as she turned around to semi-fowlers position. 10 unit pitocin IM given, cord ceased pulsations and clamped then cut by pt, cord blood collected, Castillo placenta delivered intact with 3VC. Vaginal and perineal inspection revealed a small sup erficial vaginal floor laceration bleeding lightly, repaired with 1 stitch of 3.0 Vicryl and Hurricaine topical spray for analgesia. Strong bonding observed, apgars 8/9, weight 3583 gms, baby at 30 minutes of age, pt's family en route. Providers Nurse Seal Extrusion Operator: Mary Peters Nurse: Haily Beaulieu Nurse: Consuelo Lebron Labor/Delivery Information Number of Babies in Womb: 1 Steroids Given: None Reason Steroids Not Administered: N/A Group Beta Strep: Negative Rubella Status: Immune Blood Type: A+ Varicella Immunity: Immune Shoulder Dystocia: No Stages of Labor Onset of Labor Date: 05/01/23 Onset of Labor Time: 14:00 Complete Dilatation Date: 05/01/23 Complete Dilatation Time: 15:28 Labor - Stage 1 Duration: 1 hours and 28 minutes ROM Baby A: 05/01/23 ROM Baby A: 15:40 ROM Total Time- Baby A: [id number] Infant Delivery Date-Baby A: 05/01/23 Infant Delivery Time-Baby A: 15:40 Labor Stage 2 Duration: 12 minutes Placenta Delivery Date-Baby A: 05/01/23 Placenta Delivery Time-Baby A: 15:49 Labor-Stage 3 Duration: 9 minutes Total Length of Labor-Baby A: 1 hours and 40 minutes Placenta Status: Delivered Baby A Gender: Female Gestational Status: Early Term (37-38.6 wks) Gestational Age in Weeks/Days: 38 Weeks and 1 Days weight: 7 lb 14.457 oz Weight Comment: 3585 gms Length-Baby A: 19.25 in Score-1 Minute Interval(Baby A) Heart Rate-1 minute: 100 BPM or Greater Respiratory Effort- 1 minute: Spontaneous/Strong Cry Muscle Tone-1 minute: Active Movement Reflex Response-1 minute: Prompt Response Color-1 minute: Pallor or Cyanosis Total Score-1 minute: 8 Score-5 Minute Interval(Baby A) Heart Rate- 5 minute: 100 BPM or Greater Respiratory Effort-5 minute: Spontaneous/Strong Cry Muscle Tone-5 minute: Active Movement Reflex Response-5 minute: Prompt Response Color-5 minute: Bluish Hands or Feet Total Score- 5 minute: 9
[2023-05-01] MEDS: Ibuprofen 600 MG TAB PO ×2 (16:25→22:09)
[2023-05-01] MEDS: Acetaminophen 325 MG TAB 650 MG PO ×2 (16:25→22:09)
[2023-05-01] MEDS: Dibucaine 1% 28 GM TUBE TP (16:26)
[2023-05-01] MEDS: Hamamelis Leaf/Glycerin 100 EACH BOX PR (16:26)
[2023-05-01 16:29] LABS: HCT 36.4 % (36.0-46.0); HGB 12.2 g/dL (11.2-15.7); MCH 29.8 pg (27.0-33.0); MCHC 33.5 % (32.0-36.0); MCV 89 fL (80-95); MPV 10.7 fL (8.0-11.0); Platelet Count 227 10^3/uL (130-400); RDW 13.8 % (11.7-14.6); RDW-SD 44.8 fL; WBC 12.33 10^3/uL (4.4-10.8)
[2023-05-01] MEDS: Oxytocin 10 UNITS/ML VIAL IM (18:55)
[2023-05-02] MEDS: Ibuprofen 600 MG TAB PO ×2 (04:05→11:10)
[2023-05-02] MEDS: Acetaminophen 325 MG TAB 650 MG PO ×2 (04:05→11:10)
[2023-05-02 07:45] VITALS: BP 126/86; PULSE 66; RESP 15; TEMP 36.6; O2SAT 99
--- NOTE | 2023-05-02 09:18 | W.PM.OBPNV1 ---
Date of service: 05/02/23 Time of Service: 08:15 Assessment and Plan Assessment and plan (1) care following vaginal delivery: Status: Acute Assessment and plan: 1. Normal PP course to date 2. Expect discharge to home later today (2) Lactating mother: Status: Acute Assessment and plan: 1. Breast feeding well established, experienced Mother. 2. Follow up with Pediatrics for weight check as indicated. Subjective Subjective Interval history: Bridget is feeling well. Out of bed doing own ADL's without difficulty. Breast feeding is going well. Denies pain. She is hoping to go home at 24 hour time frame. baby status: Doing well, Nursing well and Rooming in Exam Physical Exam Vital signs: Temp Pulse Resp BP 98.2 F 82 17 133/78 05/01/23 17:05 05/01/23 20:29 05/01/23 17:05 05/01/23 20:29 Vital Signs Reviewed: Yes Constitutional Constitutional: no acute distress, average body habitus and cooperative HEENT Exam HEENT Exam: Normal Neck Exam Neck Exam: Normal (normal visual inspection) Respiratory Exam Respiratory Exam: Normal Cardiovascular Exam Cardiovascular Exam: Normal Abdominal Exam Abdomen: Other (normal exam) Fundal Exam Fundus: Below Umbilicus and Firm Comment: small lochia noted. Rectal Exam Rectal Exam: Not Done Exam Perineum: Intact and Normal Extremities Exam Extremity Exam: Normal (denies calf tenderness) and Full ROM Back/Spine/Pelvis Exam Back Exam: Normal Skin Exam Skin Exam: Normal Neurological Exam Neurological Exam: Normal Psychiatric Exam Psychiatric Exam: Normal Results Hemoglobin/Hematocrit: Hgb 12.2 g/dL (11.2-15.7) 05/01/23 16:18 Hct 36.4 % (36.0-46.0) 05/01/23 16:18 Abnormal Lab Findings: Abnormal Labs 05/01/23 16:18 WBC 12.33 H
--- NOTE | 2023-05-02 09:43 | DSE_ITS ---
Date of service: 05/02/23 Time of Service: 09:43 DS: Diagnosis Discharge Diagnosis (1) care following vaginal delivery: Status: Acute Asessment and Plan: 1. patient is aware of Post warning signs and when to call 2. RTO 2 and 6 weeks PP or prn. (2) Lactating mother: Status: Acute Asessment and Plan: 1. Patient aware of mastitis warning signs and is experienced breast feeding mother 2. RTO 2 and 6 weeks PP at [facility] and with Pediatric provider as recommended. Discharge Plan Disposition Patient Disposition: Home Condition: Good Discharge Details Reason For Visit: Term Labor Admit Date/Time: 05/01/23 16:08 Admit Provider: Mary Peters Attending Provider: Mary Peters Hospital Course Hospital Course: Normal, somewhat precipitous labor and of live female. Normal PP course. Home Meds and New Rx's Prescriptions: Continued Classic 28 mg iron- 800 mcg tablet 1 tab PO DAILY Discharge Instructions Stand Alone Forms: BC Instructions, BC Post Vaginal De liver Activity:: Activity as Tolerated Equipment/Supplies:: No Equipment Needed Diet:: As Tolerated Discharge Orders Discharge Orders: Discharge Order (Routine); Ordered 05/02/23 Ordered By: Sandra Soliz OB:DS Summary Summary Vaginal Delivery Method: Spontaneaous Laceration Extension: First Degree Contraception Discussed Contraception Discussed: Yes, Infant Gender-Baby A: Female (Luna) weight: 7 lb 12 oz Disposition of Baby A: Home Status at Discharge Functional status at discharge: independent ambulation Overall status at discharge: patient is back to baseline Mental Status: mental status grossly normal Speech and Movement: speech and movement normal Mood: congruent mood Affect: normal affect Time Spent with Patient providing and/or coordinating discharge services: Less than 30 minutes Exam Physical Exam Vital signs: Temp Pulse Resp BP Pulse Ox 97.9 F 66 15 126/86 99 05/02/23 07:45 05/02/23 07:45 05/02/23 07:45 05/02/23 07:45 05/02/23 07:45 Vital Signs Reviewed: Yes Constitutional Constitutional: no acute distress and average body habitus HEENT Exam HEENT Exam: Normal Neck Exam Neck Exam: Normal Respiratory Exam Respiratory Exam: Normal Cardiovascular Exam Cardiovascular Exam: Normal Abdominal Exam Abdomen: Other (normal exam) Fundal Exam Fundus: Below Umbilicus and Firm Rectal Exam Rectal Exam: Not Done Exam Patient deferred: perineal exam Extremities Exam Extremity Exam: Normal and Full ROM Back/Spine/Pelvis Exam Back Exam: Not Done Skin Exam Skin Exam: Normal Neurological Exam Neurological Exam: Normal Psychiatric Exam Psychiatric Exam: Normal PFSH All Active Problems Lactating mother (Acute) care following vaginal delivery (Acute) Penicillin allergy (Acute) BMI 35.0-35.9,adult (Acute) Medical History 38 weeks gestation of Carrier of spinal muscular atrophy FOB tested in 2019 and is negative Cystic fibrosis carrier FOB was tested in 2019 and found to be negative Recurrent loss History of miscarriage Infertility management Injury, crush, knee Surgical History S/P tonsillectomy Family History Mother Breast cancer Thyroid disorder Graves disease - thyroidectomy Maternal Grandmother Breast cancer Paternal Grandmother Breast cancer Sister Diabetes type 1, half sister Father Gout High bone marrow iron stores Hypertension Social History Smoking/Tobacco Use Status: Never Smoking risk assessment performed?: Yes Alcohol Intake: never Drug use: Never Substance use type: does not use Housing: house Current gender identity: female Do you feel safe at home: Yes Do you feel safe in your relationship?: Yes History History 5 Para 1 Hx # Term Pregnancies 1 Multiple births 0 Hx # Pregnancies 0 Ectopic pregnancies 0 AB induced 0 Hx Number of Living Children 1 AB spontaneous 3 Past Pregnancies Del. Date GA/Weeks # Preg Succ Route Wgt Sex Labor Lgth Anesth esia Location Prov [facility] 02/04/19 6 05/08/20 38 No vaginal 8 lb 3.4 oz Female 6 Oscar Garner CNM 10/07/21 6 05/02/22 6 No No Delivery Date: 02/04/19 Last Updated by: Sandra Soliz CNM SAB no interventions Delivery Date: 05/08/20 Last Updated by: VAISHALI Del Rosario; 2nd degree laceration, repaired. Delivery Date: 10/07/21 Last Updated by: Sandra Soliz CNM SAB no complications DS: Data Vitals/I&O Vitals and I&O: Vital Signs Temperature 97.9 F 05/02/23 07:45 Temperature Source Oral 05/02/23 07:45 Pulse 66 05/02/23 07:45 Pulse Rhythm Regular 05/02/23 07:45 Respiratory Rate 15 05/02/23 07:45 Respiratory Depth Normal 05/01/23 16:34 Blood Pressure 126/86 05/02/23 07:45 Blood Pressure Mean 99 05/02/23 07:45 Pulse Oximetry 99 05/02/23 07:45 Oxygen Delivery Method Room Air 05/01/23 16:11 Oxygen Flow Rate 0 05/01/23 16:11 Pain Level 4 05/02/23 04:05 Intake & Output 05/01/23 05/01/23 05/02/23 11:59 23:59 11:59 Output Total 800 / 800 Balance -800 / -800 Weight 222 lb Output: Urine 800 / 800 Other: Urine Color Pale Pale Data Completed and Pending Labs on day of discharge: Labs from last 24 hours 05/01/23 16:18 WBC 12.33 H RBC 4.10 Hgb 12.2 Hct 36.4 MCV 89 MCH 29.8 MCHC 33.5 RDW 13.8 Plt Count 227 MPV 10.7
== END 2023-05-02 16:40 | disposition home or self-care (01) | DRG 807 ==
PROVIDERS: Admitting Provider Advanced Practice Midwife; Visit Provider Advanced Practice Midwife
DX: O62.3 Precipitate labor (principal); Z37.0 Single live birth; Z3A.38 38 weeks gestation of pregnancy; Z14.1 Cystic fibrosis carrier; Z14.8 Genetic carrier of other disease
CPT/HCPCS: 85027; J2590; J3490

== ENCOUNTER 2024-02-19 09:54 | Outpatient (CLI) | payer OTHER, SELFPAY ==
[2024-02-19 10:02] LABS: HCG Quant, Pregnancy 155 mIU/mL (1-3)
== END 2024-02-19 09:55 | disposition home or self-care (01) ==
LOC: LBO 09:55
PROVIDERS: Visit Provider Advanced Practice Midwife
DX: Z31.9 Encounter for procreative management, unspecified (principal)
CPT/HCPCS: 36415; 83519; 84702

== ENCOUNTER 2024-02-26 09:36 | Outpatient (CLI) | payer OTHER, SELFPAY ==
[2024-02-26 10:27] LABS: HCG Quant, Pregnancy 3313 mIU/mL (1-3)
== END 2024-02-26 09:37 | disposition home or self-care (01) ==
LOC: LBO 09:38
PROVIDERS: Visit Provider Obstetrics & Gynecology
DX: N91.0 Primary amenorrhea (principal)
CPT/HCPCS: 36415; 84702

== ENCOUNTER 2024-04-04 02:08 | Outpatient (CLI) | payer OTHER, SELFPAY ==
--- OUTSIDE RECORDS SUMMARY | 2024-04-04 02:10 | XMS_ITS | Encounter Summary ---
Author Organization [facility] Address [address] [place] [address] Care Team Providers Care Machine Made Shoe Unit Worker Name Role Phone Unknown, Provider Primary Care Provider Encounter Details Date Type Department Care Team (Late st Contact Info) Description 10/21/2019 Lab Requisition [facility] Pathology & Laboratory Medicine - [facility] [address] [place] [address] [address] Encounter for other general examination Social History Tobacco Use Types Packs/Day Years Used Date Smoking Tobacco: Never Assessed Sex and Gender Information Value Date Recorded Sex Assigned at Not on file Gender Identity Not on file Sexual Orientation Not on file documented as of this encounter Plan of Treatment Not on file documented as of this encounter Procedures Procedure Name Priority Date/Time Associated Diagnosis Comments PAP TEST Today 10/17/2019 13:01 EDT Encounter for other general examination documented in this encounter Results * PAP TEST (10/17/2019 13:01 EDT) Specimens A. Cervix and/or Endocervix, ThinPrep Imaging System with Manual Evaluation 10/23/2019 12:38 EDT [facility] Specimen Adequacy Satisfactory for Evaluation - transformation zone component present 10/23/2019 12:38 T [facility] General Categorization Negative for intraepithelial lesion or malignancy 10/23/2019 12:38 T [facility] Attestation . 10/23/2019 12:38 [facility] at 1238 Clinical History NONE 10/23/19 12:38 EDT [facility] Scanned Images 10/23/2019 12:38 EDT [facility] Papanicolaou smear specimen (specimen) CERVIX UTERI STRUCTURE / Unknown 10/17/2019 13:01 EDT 10/21/2019 9:19 EDT Sandra Mary P[facility] MIKEL PAZ [facility] [address] [place] [address] documented in this encounter Visit Diagnoses Diagnosis Encounter for other general examination documented in this encounter Care Teams Machine Made Shoe Unit Worker Relationship Specialty Start Date End Date Unknown, Provider, PCP - General 06/25/21 documented as of this encounter
--- OUTSIDE RECORDS SUMMARY | 2024-04-04 02:10 | XMS_ITS | Encounter Summary ---
Author Organization [facility] Address [address] [place] [address] Care Team Providers Care Berry Planter Name Role Phone Unknown, Provider Primary Care Provider Encounter Details Date Type Department Care Team (Late st Contact Info) Description 09/06/2022 Lab Requisition [facility] Pathology & Laboratory Medicine - [facility] [address] [place] [address] Outr Resulting Lab, Provider Social History Tobacco Use Types Packs/Day Years Used Date Smoking Tobacco: Never Assessed Interpersonal Safety Answer Date Record ed Physically Hurt Never 05/18/2020 Verbally Threaten Not on file 05/18/2020 Sex and Gender Information Value Date Recorded Sex Assigned at Not on file Gender Identity Not on file Sexual Orientation Not on file documented as of this encounter Plan of Treatment Not on file documented as of this encounter Procedures Procedure Name Priority Date/Time Associated Diagnosis Comments PROGESTERONE Routine 09/06/2022 10:45 EDT documented in this encounter Results * PROGESTERONE (09/06/2022 10:45 EDT) Progesterone 17.4 See Table ng/mL 09/06/2022 22:25 EDT [facility] Comment: Female Reference Ranges: PHYSIOLOGICAL STATUS ?REFERENCE RANGE ? Pre-Pubertal: ? <= 0.2 ng/mL Menstruating: (Non-) Follicular Phase: ? <= 1.4 ng/mL Luteal Phase: ? 3.3 - 25.6 ng/mL Mid-luteal Phase: ? 4.4 - 28.0 ng/mL Postmenopausal: ? <= 0.7 ng/mL : -------- First Trimester: ?11.2 - 90.0 ng/mL Second Trimester: ? 25.6 - 89.4 ng/mL Third Trimester: ?48.4 - 422.5ng/mL For ectopic , consult a pathologist. Blood VENOUS BLOOD / Unknown 09/06/2022 10:45 EDT 09/06/2022 21:30 EDT Provider Outr Resulting Lab CHEMISTRY & BLOOD GAS ORDERABLES [facility] [address] [place] [address] documented in this encounter Visit Diagnoses Not on filedocumented in this encounter Care Teams Berry Planter Relationship Specialty Start Date End Date Unknown, Provider, PCP - General 06/25/21 documented as of this encounter
--- OUTSIDE RECORDS SUMMARY | 2024-04-04 02:10 | XMS_ITS | Referral Summary ---
Author Organization [facility] Address [address] [place] [address] Care Team Providers Care Loading Manager Name Role Phone Unknown, Provider Primary Care Provider [phone] Social History Tobacco Use Types Packs/Day Years Used Date Smoking Tobacco: Never Assessed Interpersonal Safety Answer Date Record ed Physically Hurt Never 05/18/2020 Verbally Threaten Not on file 05/18/2020 Sex and Gender Information Value Date Recorded Sex Assigned at Not on file Gender Identity Not on file Sexual Orientation Not on file Plan of Treatment Not on file Procedures Procedure Name Priority Date/Time Associated Diagnosis Comments HEPATITIS C AB W REFLEX TO HCV RNA BY PCR Routine 10/27/2022 14:25 EDT from Last 3 Months or Most Recently Relevant to Health Maintenance Results * HEPATITIS C AB W REFLEX TO HCV RNA BY PCR (10/27/2022 14:25 EDT) Hep C Antibody Negative Negative 10/30/2022 10:13 EDT [facility] Blood VENOUS BLOOD / Unknown 10/27/2022 14:25 EDT 10/28/2022 22:07 EDT Provider Outr Resulting Lab CHEMISTRY & BLOOD GAS ORDERABLES [facility] [address] [place] [address] from Last 3 Months or Most Recently Relevant to Health Maintenance Care Teams Loading Manager Relationship Specialty Start Date End Date Unknown, Provider, PCP - General 06/25/21
--- OUTSIDE RECORDS SUMMARY | 2024-04-04 02:10 | XMS_ITS | Encounter Summary ---
Author Organization [facility] Address [address] [place] [address] Care Team Providers Care Payroll Processor Name Role Phone Unknown, Provider Primary Care Provider Encounter Details Date Type Department Care Team (Late st Contact Info) Description 06/22/2021 Lab Requisition [facility] Pathology & [place] [address] Outr Resulting Lab, Provider Social History Tobacco [...] Procedure Name Priority Date/Time Associated Diagnosis Comments ZZCOVID-19 TEST [facility] PCR Today 06/22/2021 8:22 EST COVID-19 TESTING Routine 06/22/2021 8:22 EST documented in this encounter Results * COVID-19 TEST [facility] PCR (06/22/2021 8:22 EST) Swab 06/22/2021 8:22 EST 06/22/2021 15:33 EST Provider Outr Resulting Lab MICROBIOLOGY - GENERAL ORDERABLES [facility] [address] [place] [address] * COVID-19 TESTING (06/22/2021 8:22 EST) COVID-19 rt-PCR Result Negative Negative 06/22/2021 20:42 EST [facility] Comment: This test has not been FDA cleared or approved. This test has been authorized by FDA under an EUA for use by authorized laboratories. This test has been authorized only for detection of nucleic acid from 2019-nCoV, not for any other viruses or pathogens. This test is only authorized for the duration of the declaration that circumstances exist justifying the authorization of emergency use of in vitro diagnostic tests for detection and/or diagnosis of 2019-nCoV under section 564(b)(1) of Act, 21 U.S.C ?? 360bbb-3(b) (1), unless the authorization is terminated or revoked sooner. Negative results do not preclude 2019-nCoV infection and should not be used as the sole basis for treatment or other patient management decisions. Negative results must be combined with clinical observations, patient history, and epidemiological information. Performed on the Miiixher Fusion instrument Performing Lab [place] [facility] Lab 06/22/2021 20:42 EST [facility] Swab 06/22/2021 8:22 EST 06/22/2021 15:33 EST Provider Outr Resulting Lab MICROBIOLOGY - GENERAL ORDERABLES [facility] [address] [place] [address] documented in this encounter Visit Diagnoses Not on filedocumented in this encounter Care Teams Payroll Processor Relationship Specialty Start Date End Date Unknown, Provider, PCP - General 06/25/21 documented as of this encounter
--- OUTSIDE RECORDS SUMMARY | 2024-04-04 02:10 | XMS_ITS | Encounter Summary ---
Author Organization [facility] Address [address] [place] [address] Care Team Providers Care Hangersmith Name Role Phone Unknown, Provider Primary Care Provider Encounter Details Date Type Department Care Team (Late st Contact Info) Description 10/17/2019 Lab Requisition [facility] Pathology & Laboratory Medicine - [address] [address] Unknown, ProviderMD Social History Tobacco Use Types Packs/Day Years Used Date Smoking Tobacco: Never Assessed Sex and Gender Information Value Date Recorded Sex Assigned at Not on file Gender Identity Not on file Sexual Orientation Not on file documented as of this encounter Plan of Treatment Not on file documented as of this encounter Procedures Procedure Name Priority Date/Time Associated Diagnosis Comments CHLAMYDIA/N. GONORRHOEAE AMPLIFIED NUCLEIC ACID Routine 10/17/2019 15:30 EDT documented in this encounter Results * CHLAMYDIA/N. GONORRHOEAE AMPLIFIED RNA (10/17/2019 15:30 EDT) Neisseria gonorrhoeae Result Negative Negative 10/20/2019 15:28 EDT [facility] Chlamydia trachomatis Result Negative Negative 10/20/2019 15:28 EDT [facility] Swab ENTIRE WALL OF CERVIX / Unknown 10/17/2019 15:30 EDT 10/17/2019 22:38 EDT Provider Unknown MICROBIOLOGY - GENER AL ORDERABLES [facility] [address] [place] [address] documented in this encounter Visit Diagnoses Not on filedocumented in this encounter Care Teams Hangersmith Relationship Specialty Start Date End Date Unknown, ProviderMD PCP - General 06/25/21 documented as of this encounter
--- OUTSIDE RECORDS SUMMARY | 2024-04-04 02:10 | XMS_ITS | Encounter Summary ---
Author Organization [facility] Address [address] [place] [address] Care Team Providers Care Rotary Planer Set Up Operator Name Role Phone Unknown, Provider Primary Care Provider Encounter Details Date Type Department Care Team (Late st Contact Info) Description 06/26/2022 Lab Requisition [facility] Pathology & Laboratory Medicine - [facility] [address] [place], [place] [address] Outr Resulting Lab, Provider Recurrent loss Social History Tobacco Use Types Packs/Day Years [...] Procedure Name Priority Date/Time Associated Diagnosis Comments HN LAB PATH REVIEW - COAG Today 06/26/2022 13:05 EST CHROMOSOME ANALYSIS Today 06/26/2022 1 3:05 EST LUPUS ANTICOAGULANT CASCADE Today 06/26/2022 13:05 EST SILICA CONFIRMATION TEST Today 06/26/2022 13:05 EST THYROPEROXIDASE ANTIBODY Today 06/26/2022 13:05 EST documented in this encounter Results * HN LAB PATH REVIEW - COAG (06/26/2022 13:05 EST) Pathology Review Comment - Coagulation Rashid Tsai MD PhD 06/29/2022 23:12 EST [facility] Blood VENOUS BLOOD / Unknown 06/26/2022 13:05 EST 06/27/2022 17:11 EST Provider Outr Resulting Lab HEMATOLOGY & PF4 ORDERABLES Performing Organization Address [facility] Co de Phone Number [facility] [address] [place] [address] * SILICA CONFIRMATION TEST (06/26/2022 13:05 EST) Silica Clot Confirm 41.1 27.2 - 43.3 secs 06/29/2022 12:31 [facility] Silica Clot TR Ratio 1.13 <=1.16 06/29/2022 12:31 [facility] Blood VENOUS BLOOD / Unknown 06/26/2022 13:05 EST 06/27/2022 17:11 EST Provider Outr Resulting Lab HEMATOLOGY & PF4 ORDERABLES Performing Organization Address [facility] de Phone Number [facility] [address] [place] [address] * CHROMOSOME ANALYSIS (06/26/2022 13:05 EST) Pathologist [facility] CYTOGENETICS INTERPRETATION Normal female karyotype. 08/01/2022 16:39 [facility] Attestation By the signature below, the attending physician certifies that they have 1) personally conducted a gross and/or microscopic examination of the described specimen(s), and/or personally interpreted the results of laboratory testing of the described specimen(s), and 2) personally rendered or confirmed the above diagnosis. 08/01/2022 16:39 [facility] at 1639 Clinical History Recurrent Loss 08/01/2022 16:39 [facility] Testing Performed G-banded karyotype 08/01/2022 16:39 [facility] Report Cells counted: 30 Cells analyzed: 11 Cells karyotyped: 11 Band resolution: 550 08/01/2022 16:39 [facility] Karyotype 46,XX 08/01/2022 16:39 [facility] Scanned Images 08/01/2022 16:39 EST [facility] ZZUNK VENOUS BLOOD / Unknown 06/26/2022 13:05 EST 06/28/2022 8:13 EST Provider Outr Resulting Lab PATHOLOGY OR DERABLES Performing Organization Address City/[facility] Co de Phone Number [facility] [address] [place] [address] * THYROPEROXIDASE ANTIBODY (06/26/2022 13:05 EST) Thyroperoxidase Ab <28 <=60 U/mL 2022 19:23 EST [facility] Blood VENOUS BLOOD / Unknown 06/26/2022 13:05 EST 06/27/2022 17:10 EST Provider Outr Resulting Lab CHEMISTRY & BLOOD GAS ORDERABLES Performing Organization Address [facility] Co de Phone Number [facility] [address] [place] [address] * (ABNORMAL) LUPUS ANTICOAGULANT CASCADE (06/26/2022 13:05 EST) Pathologist [facility] LA Cuming Summary Negative for detection of lupus anticoagulant (LA). Where clinical suspicion for antiphospholipid syndrome is high, it may be appropriate to perform alternative LA or aPL assays. ?? The laboratory criteria for Antiphospholipid Syndrome (aPL) include positive testing for one of the following on 2 or more occasions, at least 12 weeks apart: 1. Lupus anticoagulant (LA), 2. Cardiolipin antibodies (IgG or IgM) in medium or high titer, 3. Beta2-glycoprotein 1 antibodies (IgG or IgM) in medium or high titer. Solid-phase assays for Beta2 glycoprotein 1 (B2GP1) and Cardiolipin antibodies are recommended when evaluating a patient for antiphospholipid syndrome. Correlation with those results is advised. Thelma Nash MD 06/29/2022 12:52 There was significant resident/fellow involvement in the diagnostic evaluation of this case. By the signature below, the attending physician certifies that they have reviewed the results of laboratory testing from the described specimen(s) and personally confirmed the above diagnosis rendered by Dr. Thelma Nash MD. Rashid Tsai MD PhD 06/29/22 23:12 06/29/2022 23:12 EST [facility] Dilute Viper Venom 38.1 25.2 - 42.2 secs 06/29/2022 23:12 EST [facility] Silica Clotting Time 52.1(H) 30.2 - 48.4 secs 06/29/2022 23:12 [facility] Blood VENOUS BLOOD / Unknown 06/26/2022 13:05 EST 06/27/2022 17:11 EST Provider Outr Resulting Lab HEMATOLOGY & PF4 ORDERABLES [facility] [address] [place] [address] documented in this encounter Visit Diagnoses Diagnosis Recurrent loss documented in this encounter Care Teams Rotary Planer Set Up Operator Relationship Specialty Start Date End Date Unknown, Provider, PCP - General 06/25/21 documented as of this encounter
--- OUTSIDE RECORDS SUMMARY | 2024-04-04 02:10 | XMS_ITS | Encounter Summary ---
Author Organization [facility] Address [address] [place] [address] Care Team Providers Care Electric Motors Salesperson Name Role Phone Unknown, Provider Primary Care Provider Encounter Details Date Type Department Care Team (Late st Contact Info) Description 10/27/2022 Lab Requisition [facility] Pathology & Laboratory Medicine - [facility] [address] [place] [address] Sandra Soliz, JUNIOR ELECTRICAL ENGINEER [address] [place] [address] Encounter for other general examination Social History [...] Date/Time Associated Diagnosis Comments PAP TEST Today 10/27/2022 13:45 EDT Encounter for other general examination CHLAMYDIA/N. GONORRHOEAE AMPLIFIED NUCLEIC ACID, THINPREP Today 10/27/2022 13:45 EDT documented in this encounter Results * PAP TEST (10/27/2022 13:45 EDT) Specimens A. Cervix and/or Endocervix , ThinPrep Imaging System with Manual Evaluation 11/08/2022 8:17 EDT [facility] Specimen Adequacy Satisfactory for Evaluation - transformation zone component absent 11/08/2022 8:17 EDT [facility] General Categorization Negative for intraepithelial lesion or malignancy 11/08/2022 8:17 EDT [facility] Attestation . 11/08/2022 8:17 EDT [facility] at 0817 Clinical History See below 11/09/19 8:17 EDT [facility] Performing Lab [facility] 11/08/2022 8:17 EDT [facility] Scanned Images 11/08/2022 8:17 EDT [facility] Papanicolaou smear specimen (specimen) CERVIX UTERI STRUCTURE / Unknown 10/27/2022 13:45 EDT 10/31/2022 9:03 EDT Sandra Soliz APN PATHOLOGY ORDERAB LES Performing Organization Address [facility] Co de Phone Number [facility] [address] [place] [address] * CHLAMYDIA/N. GONORRHOEAE AMPLIFIED RNA, THINPREP (10/27/2022 13:45 EDT) Neisseria gonorrhoeae Result Negative Negative 10/30/2022 14:31 EDT [facility] Chlamydia trachomatis Result Negative Negative 10/30/2022 14:31 EDT [facility] Papanicolaou smear specimen (specimen) CERVIX UTERI STRUCTURE / Unknown 10/27/2022 13:45 EDT 10/30/2022 9:37 EDT Sandra Soliz APN MICROBIOLOGY - GE NERAL ORDERABLES Performing Organization Address City/[facility]/ZIP Co de Phone Number [facility] [address] [place] [address] documented in this encounter Visit Diagnoses Diagnosis Encounter for other general examination documented in this encounter Care Teams Electric Motors Salesperson Relationship Specialty Start Date End Date Unknown, Provider, PCP - General 06/25/21 documented as of this encounter
--- OUTSIDE RECORDS SUMMARY | 2024-04-04 02:10 | XMS_ITS | Clinical Summary ---
Author Organization [facility] [place] [address] Care Team Providers Care Debrander Name Role Phone Keith Campo DO Primary Care Provider [phone] Allergies Active Allergy Reactions Criticality Noted Date Comments Measles, Mumps, And Rubella Vaccine Live CIS - Rash Penicillins Social History Tobacco Use Types Packs/Day Years Used Date Smoking Tobacco: Never Assessed Sex and Gender Information Value Date Recorded Sex Assigned at Not on file Gender Identity Not on file Sexual Orientation Not on file Plan of Treatment Health Maintenance Due Date Last Done Comments HIV screen 2012 Hepatitis C Screening 2012 Hepatitis B vaccine (0-59 yrs) (1) 2013 Tetanus/Diphtheria/Pertussis Vaccines (1 - Tdap) 10/09 PAP Smear 05/17/2019 05/17/2016 Covid-19 Vaccine (1 - 2022- season) 2024 Influenza (Flu) vaccine (1 o f 1 - Influenza standard series) 02/24/2024 Procedures Procedure Name Priority Date/Time Associated Diagnosis Comments SUSTAINABLE DESIGN COORDINATOR CYTOLOGY FINAL REPORT Routine 05/17/2016 12:00 PM EST from Last 3 Months or Most Recently Relevant to Health Maintenance Results * Supervisor Metalizing Cytology Final Report (05/17/2016 12:00 PM EST) Supervisor Metalizing Cytology Final Report [id number] ?Location: [facility] The signing pathologist has (i) examined the relevant preparation(s) for the specimen(s) and (ii) rendered or confirmed the diagnosis(es). . ? Supervisor Metalizing Final DIAGNOSIS Normal Negative for Intraepithelial Lesion or Malignancy (NILM). For consensus guidelines for the management of cervical cancer screening test results, please see: ?? http://www.asccp.o rg/guidelines . Electronically signed by: ??JAMIN Gutiérrez(ASCP), Charisse Suh Verified: ??05/29/2016 ?Information Scientist DISCUSSION Fungal organisms morphologically consistent with Eryn species are present. HPV RESULTS HPV16 (Result) ?NEGATIVE HPV18 (Result) ?NEGATIVE HPVOHR (Result) ? NEGATIVE HPV (Interpretation) ?See Below HPV (Interpretation) Text: NEGATIVE for high-risk HPV *. *Testing negative for high risk HPV means that the specimen is negative for the following 14 types tested: types 16, 18, 31, 33, 35, 39, 45, 51, 52, 56, 58, 59, 66, and 68. The test is not intended to detect low risk HPV types. Venkat lianet HPV test Specimen: HPV Testing - Cytology Liquid Based Prep The Venkat lianet ? HPV test was validated, performed and results reported through the [facility] ([facility]) at [facility]. ? - Bj Choi, PhD, [facility], Director-[facility] STATEMENT OF ADEQUACY Specimen submitted is satisfactory for evaluation. No endocervical component present. Note: ??Initial cross-sectional studies suggested that ETHAN cells were more commonly identified when an endocervical component was present, however subsequent longitudinal studies fail to show that women lacking an endocervical component in a Pap smear are at increased risk for ETHAN. CLINICAL INFORMATION HPV Option: ? Concurrent HPV Preparation: ?Liquid Based Pap Specimen Source: ?Cervical Endocervical LBP LMP: ?31/16 Hormones?: ?Yes Hysterectomy?: ?No ?: ?No ?: ?No I.U.D.?: ?No Pelvic Radiation: ? No Prior SUSTAINABLE DESIGN COORDINATOR Therapy?: ? No Hist Abnl Pap/Biopsy?: ??No Hist of HPV Vaccine?: ?? No . CLINICAL INFORMATION Hist of Smoking?: ? No Hist of JUAQUIN exposure?: ??No Clinical Data, Significant Therapy and Clinical Impression ?? : ?? _ Referring Identifier: ??[id number] This Pap Test has been evaluated with the assistance of the RemitProPrep Pap Test Imaging System. Note: The Pap test is a screening test for cervical cancer with an inherent false-negative rate dependent upon several variables. ??For further information please contact the [facility]. Reference: ??Ángela VELASQUEZ. ??Grooming Salon Manager of Pap Smear Results. ??In: ??Alvino BS, Stanislaw HH, ed. ??The Pap Smear. ??[place]: ??Sin, 2002: ??71-77. [facility] 05/17/2016 12:0 0 PM EST Narrative Resulting Agency Comment Spec In Lab / [facility] Dominga Can APRN PATHOLOGY/CYTOLOGY O RDERABLES [facility] [place] [address] from Last 3 Months or Most Recently Relevant to Health Maintenance Care Teams Debrander Relationship Specialty Start Date End Date Keith Campo DO [address] [place] [address] [facility] - General 05/17/10
--- OUTSIDE RECORDS SUMMARY | 2024-04-04 02:10 | XMS_ITS | Encounter Summary ---
Author Organization [facility] Address [address] [place] [address] Care Team Providers Care Rn Concurrent Review Name Role Phone Unknown, Provider Primary Care Provider Encounter Details Date Type Department Care Team (Late st Contact Info) Description 04/29/2022 Lab Requisition [facility] Pathology & Laboratory Medicine - [facility] [address] [place] [address] Outr Resulting Lab, Provider Social History Tobacco [...] Procedure Name Priority Date/Time Associated Diagnosis Comments PROLACTIN Routine 04/29/2022 7:45 EDT PROGESTERONE Routine 04/29/2022 7:45 EDT INSULIN Routine 04/29/2022 7:45 EDT ESTRADIOL, ADULTS Routine 04/29/2022 7:45 EDT LH Routine 04/29/2022 7:45 EDT FSH Routine 04/29/2022 7:45 EDT documented in this encounter Results * LH (04/29/2022 7:45 EDT) Luteinizing Hormone 4.7 See Note mIU/mL 05/01/2022 9:06 EST [facility] Comment: NOTE: Female Reference Ranges: Pre-Pubertal: ?<6.0 mIU/mL Menstruating: Follicular Phase(-12 to -4 days: ??1.9 - 12.5 mIU/mL Midcycle(-3 to +2 days): ?8.7 - 76.3 mIU/mL Luteal Phase(+4 to +12 days): ? 0.5 - 16.9 mIU/mL Post Menopausal: 15.9 - 54.0 mIU/mL Blood VENOUS BLOOD / Unknown 04/29/2022 7:45 EDT 04/30/2022 17:44 EST Provider Outr Resulting Lab CHEMISTRY & BLOOD GAS ORDERABLES [facility] [address] [place] [address] * FSH (04/29/2022 7:45 EDT) FSH 8.3 See Note mIU/mL 05/01/2022 9:04 EST [facility] Blood VENOUS BLOOD / Unknown 04/29/2022 7:45 EDT 04/30/2022 17:44 EST Narrative [facility] - 05/01/2022 9:04 EST NOTE: Female FSH Reference Ranges (Menstruating): PHYSIOLOGICAL STATUS ? REFERENCE RANGE ? Follicular (-12 to -4 days): ?? 2.5 - 10.2 mIU/mL Midcycle (-3 to +2 days): ?3.4 - 33.4 mIU/mL Luteal (+4 to +12 days): ? 1.5 - 9.1 mIU/mL Postmenopausal: ?23.0 - 116.3 mIU/mL Reference Ranges for pediatric non-menstruating female patients have not been established. Provider Outr Resulting Lab CHEMISTRY & BLOOD GAS ORDERABLES Performing Organization Address [facility] de Phone Number [facility] [address] [place] [address] * PROLACTIN (04/29/2022 7:45 EDT) Prolactin 3.0 See Note ng/mL 05/01/2022 9:11 EST [facility] Comment: NOTE: Female Reference Ranges: PHYSIOLOGICAL STATUS ?REFERENCE RANGE ? Postmenopausal ?1.8 - 20.3 ng/mL ?9.7 - 208.5 ng/mL Non- ?2.8 - 29.2 ng/mL Blood VENOUS BLOOD / Unknown 04/29/2022 7:45 EDT 04/30/2022 17:44 EST Provider Outr Resulting Lab CHEMISTRY & BLOOD GAS ORDERABLES Performing Organization Address [facility] de Phone Number [facility] [address] [place] [address] * PROGESTERONE (04/29/2022 7:45 EDT) Progesterone 0.3 See Table ng/mL 04/30/2022 18:45 EST [facility] Comment: Female Reference Ranges: PHYSIOLOGICAL [...] a pathologist. Blood VENOUS BLOOD / Unknown 04/29/2022 7:45 EDT 04/30/2022 17:44 EST Provider Outr Resulting Lab CHEMISTRY & BLOOD GAS ORDERABLES [facility] [address] [place] [address] * INSULIN (04/29/2022 7:45 EDT) Insulin 14.8 <29.0 uIU/mL 05/01/2022 9:51 EST [facility] Comment: Displayed Reference Range applies to fasting specimens only. Blood VENOUS BLOOD / Unknown 04/29/2022 7:45 EDT 04/30/2022 17:44 EST Provider Outr Resulting Lab CHEMISTRY & BLOOD GAS ORDERABLES Performing Organization Address [facility] Co de Phone Number [facility] [address] [place] [address] * ESTRADIOL, ADULTS (04/29/2022 7:45 EDT) Estradiol 28 See Note pg/mL 04/30/2022 18:45 EST [facility] Comment: NOTE: FEMALE REFERENCE RANGES: MENSTRUATING ? By cycle day relative to LH peak Follicular ?(-12 to -4 days) ??20-144 pg/mL Midcycle ?(-3 to +2 days) ?? 64-357 pg/mL Luteal ?(+4 t0 +12 days) ??56-214 pg/mL POSTMENOPAUSAL ?<32 pg/mL *Cross reactivity with Fulvestrant could lead to a falsely elevated estradiol result in patients treated with this drug. Blood VENOUS BLOOD / Unknown 04/29/2022 7:45 EDT 04/30/2022 17:44 EST Provider Outr Resulting Lab CHEMISTRY & BLOOD GAS ORDERABLES Performing Organization Address [facility] de Phone Number [facility] [address] [place] [address] documented in this encounter Visit Diagnoses Not on filedocumented in this encounter Care Teams Rn Concurrent Review Relationship Specialty Start Date End Date Unknown, Provider, PCP - General 06/25/21 documented as of this encounter
--- OUTSIDE RECORDS SUMMARY | 2024-04-04 02:10 | XMS_ITS | Encounter Summary ---
Author Organization [facility] Address [address] [place] [address] Care Team Providers Care Supervisor Firearms Name Role Phone Unknown, Provider Primary Care Provider Encounter Details Date Type Department Care Team (Late st Contact Info) Description 06/26/2022 Lab Requisition [facility] Pathology & Laboratory Medicine - [address] [address] Outr Resulting Lab, Provider Social History Tobacco [...] REFLEX TO HCV RNA BY PCR Routine 06/26/2022 13:05 EST HEPATITIS B CORE ANTIBODY (TOTAL) Routine 06/26/2022 13:05 EST HEPATITIS B SURFACE ANTIGEN Routine 06/26/2022 13:05 EST documented in this encounter Results * HEPATITIS B CORE ANTIBODY (TOTAL) (06/26/2022 13:05 EST) Hepatitis B Core Ab, Total Negative Negative 06/29/2022 10:30 EST [facility] Blood VENOUS BLOOD / Unknown 06/26/2022 13:05 EST 06/27/2022 17:10 EST Provider Outr Resulting Lab CHEMISTRY & BLOOD GAS ORDERABLES Performing Organization Address City/State/[facility] Co de Phone Number [facility] [address] [place] [address] * HEPATITIS B SURFACE ANTIGEN (06/26/2022 13:05 EST) Hep B Surface Ag Negative Negative 06/28/2022 8:53 EST [facility] Blood VENOUS BLOOD / Unknown 06/26/2022 13:05 EST 06/27/2022 17:10 EST Provider Outr Resulting Lab CHEMISTRY & BLOOD GAS ORDERABLES Performing Organization Address City/[facility]/ZIP Co de Phone Number [facility] [address] [place] [address] * HEPATITIS C AB W REFLEX TO HCV RNA BY PCR (06/26/2022 13:05 EST) Hep C Antibody Negative Negative 06/28/2022 10:42 EST [facility] Blood VENOUS BLOOD / Unknown 06/26/2022 13:05 EST 06/27/2022 17:10 EST Provider Outr Resulting Lab CHEMISTRY & BLOOD GAS ORDERABLES Performing Organization Address City/[facility]/ZIP Co de Phone Number [facility] [address] [place] [address] documented in this encounter Visit Diagnoses Not on filedocumented in this encounter Care Teams Supervisor Firearms Relationship Specialty Start Date End Date Unknown, Provider, PCP - General 06/25/21 documented as of this encounter
--- OUTSIDE RECORDS SUMMARY | 2024-04-04 02:10 | XMS_ITS | Encounter Summary ---
Author Organization [facility] Address [address] [place] [address] Care Team Providers Care Coal Pipeline Operator Name Role Phone Unknown, Provider Primary Care Provider [phone] Encounter Details Date Type Department Care Team (Late st Contact Info) Description 05/19/2020 Lab Requisition [facility] Pathology & Laboratory Medicine - [facility] [address] [place] [address] Outr Resulting Lab, Provider Social History Tobacco [...] on file documented as of this encounter Visit Diagnoses Not on filedocumented in this encounter Care Teams Coal Pipeline Operator Relationship Specialty Start Date End Date Unknown, Provider, PCP - General 06/25/21 documented as of this encounter
--- OUTSIDE RECORDS SUMMARY | 2024-04-04 02:10 | XMS_ITS | Encounter Summary ---
Author Organization [facility] Address [address] [place] [address] Care Team Providers Care Advice Clerk Name Role Phone Unknown, Provider Primary Care Provider [phone] Encounter Details Date Type Department Care Team (Late st Contact Info) Description 06/24/2020 Lab Requisition [facility] Pathology & Laboratory Medicine - [address] [address] Outr Resulting Lab, Provider Social History Tobacco [...] Comments CHLAMYDIA/N. GONORRHOEAE AMPLIFIED NUCLEIC ACID Routine 06/23/2020 14:20 EST documented in this encounter Results * CHLAMYDIA/N. GONORRHOEAE AMPLIFIED RNA (06/23/2020 14:20 EST) Neisseria gonorrhoeae Result Negative Negative 06/26/2020 7:58 EST [facility] Chlamydia trachomatis Result Negative Negative 06/26/2020 7:58 EST [facility] Swab ENTIRE WALL OF CERVIX / Unknown 06/23/2020 14:20 EST 06/24/2020 18:52 EST Provider Outr Resulting Lab MICROBIOLOGY - GENERAL ORDERABLES [facility] [address] [place] [address] documented in this encounter Visit Diagnoses Not on filedocumented in this encounter Care Teams Advice Clerk Relationship Specialty Start Date End Date Unknown, Provider, PCP - General 06/25/21 documented as of this encounter
--- OUTSIDE RECORDS SUMMARY | 2024-04-04 02:10 | XMS_ITS | Encounter Summary ---
Author Organization [facility] Address [address] [place] [address] Care Team Providers Care Spooling Machine Operator Name Role Phone Unknown, Provider Primary Care Provider Encounter Details Date Type Department Care Team (Late st Contact Info) Description 04/01/2021 Lab Requisition [facility] Pathology & Laboratory Medicine - [facility] [address] [place] [address] Outr Resulting Lab, Provider Social History Tobacco [...] Comments ZZCOVID-19 TEST [facility] PCR Today 03/31/2021 16:24 EDT COVID-19 TESTING Routine 03/31/2021 16:2 4 EDT documented in this encounter Results * COVID-19 TEST [facility] PCR (03/31/2021 16:24 EDT) Swab ENTIRE NASOPHARYNX / Unknown 03/31/2021 16:24 EDT 04/01/2021 16:34 EDT Provider Outr Resulting Lab MICROBIOLOGY - GENERAL ORDERABLES [facility] [address] [place] [address] * COVID-19 TESTING (03/31/2021 16:24 EDT) COVID-19 rt-PCR Result Negative Negative 04/02/2021 11:36 EDT [facility] Comment: This test has [...] clinical observations, patient history, and epidemiological information. Testing was performed using the magnus SARS-CoV-2 assay ([employer] on the Magnus 6800 System Performing Lab Magnus 6800 [facility] 04/02/2021 11:36 EDT [facility] Swab 03/31/2021 16:2 4 EDT 04/01/2021 16:34 EDT Provider Outr Resulting Lab MICROBIOLOGY - GENERAL ORDERABLES [facility] [address] [place] [address] documented in this encounter Visit Diagnoses Not on filedocumented in this encounter Care Teams Spooling Machine Operator Relationship Specialty Start Date End Date Unknown, Provider, PCP - General 06/25/21 documented as of this encounter
--- OUTSIDE RECORDS SUMMARY | 2024-04-04 02:10 | XMS_ITS | Encounter Summary ---
[place] [address] Care Team Providers Care Dip Stand Loader Name Role Phone Keith Campo DO Primary Care Provider [phone] Encounter Details Date Type Department Care Team (Late st Contact Info) Description 07/19/2010 10:00 AM EST Office Visit Dermatology [address] [facility] [address] [place], [place] [id number] Claudio Grey MD [address] [facility] [place] [address] Social History Tobacco Use Types Packs/Day Years Used Date Smoking Tobacco: Never Assessed Sex and Gender Information Value Date Recorded Sex Assigned at Not on file Gender Identity Not on file Sexual Orientation Not on file documented as of this encounter Plan of Treatment Not on file documented as of this encounter Visit Diagnoses Not on filedocumented in this encounter Care Teams Dip Stand Loader Relationship Specialty Start Date End Date Keith Campo DO [address] [place] [address] PCP - General 05/17/10 documented as of this encounter
--- OUTSIDE RECORDS SUMMARY | 2024-04-04 02:10 | XMS_ITS | Encounter Summary ---
Author Organization [facility] Address [address] [place] [address] Care Team Providers Care Mill Platform Supervisor Name Role Phone Unknown, Provider Primary Care Provider Encounter Details Date Type Department Care Team (Late st Contact Info) Description 10/27/2022 Lab Requisition [facility] Pathology & Laboratory Medicine - [facility] [address] [place], [place] [id number] Outr Resulting Lab, Provider Social History Tobacco [...] Procedure Name Priority Date/Time Associated Diagnosis Comments HIV 1/2 ANTIGEN AND ANTIBODY, 4TH GENERATION Routine 10/27/2022 14:25 EDT documented in this encounter Results * HIV 1/2 ANTIGEN AND ANTIBODY, 4TH GENERATION (10/27/2022 14:25 EDT) HIV 1 and 2 Antibody/p24 Antigen, 4th Generation Negative Negative 10/30/2022 10:25 EDT [facility] Comment:If acute HIV-1 infec tion is suspected in a high risk patient, submit plasma specimen for HIV-1 RNA quantitation test. Blood VENOUS BLOOD / Unknown 10/27/2022 14:25 EDT 10/28/2022 22:07 EDT Narrative [facility] - 10/30/2022 10:25 EDT Fourth Generation assay performed on the Siemens [employer] XPT. Provider Outr Resulting Lab IMMUNOLOGY A ND SEROLOGY ORDERABLES [facility] [address] [place] [address] documented in this encounter Visit Diagnoses Not on filedocumented in this encounter Care Teams Mill Platform Supervisor Relationship Specialty Start Date End Date Unknown, Provider, PCP - General 06/25/21 documented as of this encounter
--- OUTSIDE RECORDS SUMMARY | 2024-04-04 02:10 | XMS_ITS | Encounter Summary ---
Author Organization [facility] Address [address] [place] [address] Care Team Providers Care Mobile Marketing Specialist Name Role Phone Unknown, Provider Primary Care Provider Encounter Details Date Type Department Care Team (Late st Contact Info) Description 07/04/2021 Lab Requisition [facility] Pathology & Laboratory Medicine - [address] [address] Outr Resulting Lab, Provider Social History Tobacco [...] Priority Date/Time Associated Diagnosis Comments ZZCOVID-19 TEST [facility] PCR Today 07/04/2021 9:30 EST COVID-19 TESTING Routine 07/04/2021 9:30 EST documented in this encounter Results * COVID-19 TEST [facility] PCR (07/04/2021 9:30 EST) Swab 07/04/2021 9:30 EST 07/04/2021 17:16 EST Provider Outr Resulting Lab MICROBIOLOGY - GENERAL ORDERABLES [facility] [address] [place] [address] * COVID-19 TESTING (07/04/2021 9:30 EST) COVID-19 rt-PCR Result Negative Negative 07/05/2021 11:11 EST [facility] Comment: This test has [...] was performed using the magnus SARS-CoV-2 assay ([employer] on the Magnus 6800 System Performing Lab Magnus 6800 [facility] 07/05/2021 11:11 EST [facility] Swab 07/04/2021 9:30 EST 07/04/2021 17:16 EST Provider Outr Resulting Lab MICROBIOLOGY - GENERAL ORDERABLES [facility] [address] [place] [address] documented in this encounter Visit Diagnoses Not on filedocumented in this encounter Care Teams Mobile Marketing Specialist Relationship Specialty Start Date End Date Unknown, Provider, PCP - General 06/25/21 documented as of this encounter
--- OUTSIDE RECORDS SUMMARY | 2024-04-04 02:10 | XMS_ITS | Encounter Summary ---
Author Organization [facility] Address [address] [place] [address] Care Team Providers Care Terrazzo Tile Setter Name Role Phone Unknown, Provider Primary Care Provider [phone] Encounter Details Date Type Department Care Team (Late st Contact Info) Description 10/27/2022 Lab Requisition [facility] Pathology & Laboratory Medicine - [address] [address] Outr Resulting Lab, Provider Social History Tobacco [...] RNA BY PCR Routine 10/27/2022 14:25 EDT HEPATITIS B SURFACE ANTIGEN Routine 10/27/2022 14:25 EDT documented in this encounter Results * HEPATITIS B SURFACE ANTIGEN (10/27/2022 14:25 EDT) Hep B Surface Ag Negative Negative 10/30/2022 10:16 EDT [facility] Blood VENOUS BLOOD / Unknown 10/27/2022 14:25 EDT 10/28/2022 22:07 EDT Provider Outr Resulting Lab CHEMISTRY & BLOOD GAS ORDERABLES [facility] [address] [place] [address] * HEPATITIS C AB W REFLEX TO HCV RNA BY PCR (10/27/2022 14:25 EDT) Hep C Antibody Negative Negative 10/30/2022 10:13 EDT [facility] Blood VENOUS BLOOD / Unknown 10/27/2022 14:25 EDT 10/28/2022 22:07 EDT Provider Outr Resulting Lab CHEMISTRY & BLOOD GAS ORDERABLES Performing Organization Address City/State/[facility] Co de Phone Number [facility] [address] [place] [address] documented in this encounter Visit Diagnoses Not on filedocumented in this encounter Care Teams Terrazzo Tile Setter Relationship Specialty Start Date End Date Unknown, Provider, PCP - General 06/25/21 documented as of this encounter
--- OUTSIDE RECORDS SUMMARY | 2024-04-04 02:10 | XMS_ITS | Encounter Summary ---
Author Organization [facility] Address [address] [place] [address] Care Team Providers Care Change Control Analyst Name Role Phone Unknown, Provider Primary Care Provider Encounter Details Date Type Department Care Team (Late st Contact Info) Description 06/26/2022 Lab Requisition [facility] Pathology & Laboratory Medicine - [facility] [address] [place] [address] Outr Resulting Lab, Provider Social History Tobacco [...] Comments CHLAMYDIA/N. GONORRHOEAE AMPLIFIED NUCLEIC ACID Routine 06/26/2022 11:25 EST documented in this encounter Results * CHLAMYDIA/N. GONORRHOEAE AMPLIFIED RNA (06/26/2022 11:25 EST) Neisseria gonorrhoeae Result Negative Negative 06/28/2022 13:19 EST [facility] Chlamydia trachomatis Result Negative Negative 06/28/2022 13:19 EST [facility] Urine URINE / Unknown 06/26/2022 1 1:25 EST 06/27/2022 21:03 EST Narrative [facility] - 06/28/2022 13:19 EST A first catch urine specimen is acceptable for detection of Gonorrhea and Chlamydia, but might detect up to 10% fewer infections when compared with vaginal and endocervical swab samples. Provider Outr Resulting Lab MICROBIOLOGY - GENERAL ORDERABLES [facility] [address] [place] [address] documented in this encounter Visit Diagnoses Not on filedocumented in this encounter Care Teams Change Control Analyst Relationship Specialty Start Date End Date Unknown, Provider, PCP - General 06/25/21 documented as of this encounter
--- OUTSIDE RECORDS SUMMARY | 2024-04-04 02:10 | XMS_ITS | Encounter Summary ---
Author Organization [facility] [place] [address] Care Team Providers Care Chief Unit Forester Name Role Phone Keith Campo DO Primary Care Provider [phone] Encounter Details Date Type Department Care Team (Latest Contact Info) Description 05/17/2016 9:27 PM EST - 05/17/2016 11:59 PM EST Hospital [place] [id number] Discharge Disposition: Home Social History Tobacco Use Types Packs/Day Years Used Date Smoking Tobacco: Never Assessed Sex and Gender Information Value Date Recorded Sex Assigned at Not on file Gender Identity Not on file Sexual Orientation Not on file documented as of this encounter Plan of Treatment Not on file documented as of this encounter Procedures Procedure Name Priority Date/Time Associated Diagnosis Comments HPV Routine 05/17/2016 12:00 PM EST HISTOLOGY TECHNOLOGIST CYTOLOGY INTERPRETATION Routine 05/17/2016 12:00 PM EST HISTOLOGY TECHNOLOGIST CYTOLOGY FINAL REPORT Routine 05/17/2016 12:00 PM EST documented in this encounter Results * Passenger Brakeman Cytology Final Report (05/17/2016 12:00 PM EST) Passenger Brakeman Cytology Final Report [id number] ?Location: [facility] The signing pathologist has (i) examined the relevant preparation(s) for the specimen(s) and (ii) rendered or confirmed the diagnosis(es). . ? Passenger Brakeman Final DIAGNOSIS Normal Negative for Intraepithelial Lesion or Malignancy (NILM). For consensus guidelines for the management of cervical cancer screening test results, please see: ?? http://www.asccp.o rg/guidelines . Electronically signed by: ??JAMIN Gutiérrez(ASCP), Charisse Suh Verified: ??05/29/2016 ?Precision Lens Centerer And Edger DISCUSSION Fungal organisms morphologically consistent with Eryn [...] to detect low risk HPV types. Venkat magnus HPV test Specimen: HPV Testing - Cytology Liquid Based Prep The Venkat magnus ? HPV test was validated, performed and results reported through the [facility] ([facility]) at [facility]. ? - Bj Choi, PhD, FOR[facility]LY [facility], Director-[facility] STATEMENT OF ADEQUACY Specimen submitted is satisfactory [...] Pap Specimen Source: ?Cervical Endocervical LBP LMP: ?04/24/ Hormones?: ?Yes Hysterectomy?: ?No ?: ?No ?: ?No I.U.D.?: ?No Pelvic Radiation: ? No Prior HISTOLOGY TECHNOLOGIST Therapy?: ? No Hist Abnl Pap/Biopsy?: ??No Hist of HPV Vaccine?: ?? No . CLINICAL INFORMATION Hist of Smoking?: ? No Hist of JUAQUIN exposure?: ??No Clinical Data, Significant Therapy and Clinical Impression ?? : ?? _ Referring Identifier: ??[id number] This Pap Test has been evaluated with the assistance of the [employer] Pap Test Imaging System. Note: The Pap test is a screening test for cervical cancer with an inherent false-negative rate dependent upon several variables. ??For further information please contact the [facility]. Reference: ??Ángela VELASQUEZ. ??Dental Front Office Assistant of Pap Smear Results. ??In: ??Alvino BS, Stanislaw HH, ed. ??The Pap Smear. ??[place]: ??Sin, 2002: ??71-77. [facility] 05/17/2016 12:0 0 PM EST Narrative Resulting Agency Comment Spec In Lab / WKS Dominga Can APRN PATHOLOGY/CYTOLOGY O RDERABLES [facility] [place] [address] * HISTOLOGY TECHNOLOGIST Cytology Interpretation (05/17/2016 12:00 PM EST) Passenger Brakeman Cytology Interpretation NILM [facility] Comment:Passenger Brakeman Cytology Final R eport Passenger Brakeman Cytology Comment Present [facility] Endocervical Component Not Present [facility] AP Specimen 05/17/2016 12:0 0 PM EST 05/29/2016 8:14 AM EST Narrative Resulting Agency Comment Spec In Lab / WKS Dominga Can INSPECTOR PACKAGER PATHOLOGY/CYTOLOGY O RDERABLES Performing Organization Address [facility] Co de Phone Number [facility] [place] [address] * HPV (05/17/2016 12:00 PM EST) HPV16 NEGATIVE NEGATIVE [facility] HPV 18 NEGATIVE NEGATIVE [facility] HPV Other HR NEGATIVE NEGATIVE [facility] HPV Interpretation See Comment [facility] Comment: NEGATIVE for high-risk HPV *. * Testing negative for high risk HPV means that the specimen is negative for the following 14 types tested: ??types 16, 18, 31, 33, 35, 39, 45, 51, 52, 56, 58, 59, 66, and 68. ??The test is not intended to detect low risk HPV types. Venkat Magnus HPV test Specimen: HPV Testing - Cytology Liquid Based Prep Cervical swab (specimen) 05/17/2016 12:00 PM EST 05/22/2016 10:06 PM EST Narrative Resulting Agency Comment Spec In Lab / WKS Dominga Can INSPECTOR PACKAGER PATHOLOGY/CYTOLOGY O RDERABLES Performing Organization Address [facility] Co de Phone Number [facility] [place] [address] documented in this encounter Visit Diagnoses Not on filedocumented in this encounter Care Teams Chief Unit Forester Relationship Specialty Start Date End Date Keith Campo DO [address] [place] [address] PCP - General 05/17/10 documented as of this encounter
--- OUTSIDE RECORDS SUMMARY | 2024-04-04 02:10 | XMS_ITS | Encounter Summary ---
Author Organization [facility] Address [address] [place] [address] Care Team Providers Care Tipple Supervisor Name Role Phone Unknown, Provider Primary Care Provider [phone] Encounter Details Date Type Department Care Team (Late st Contact Info) Description 10/27/2022 Lab Requisition [facility] & Laboratory [facility] - [facility] [address] [place] [address] Outr Resulting Lab, Provider Social History Tobacco [...] Procedure Name Priority Date/Time Associated Diagnosis Comments RUBELLA IGG ANTIBODY Routine 10/27/2022 14:25 EDT VARICELLA IGG ANTIBODY Routine 10/27/2022 14:25 EDT documented in this encounter Results * VARICELLA IGG ANTIBODY (10/27/2022 14:25 EDT) Varicella IgG Ab Positive See Note 10/30/2022 10:40 EDT [facility] Comment:Presence of detectab le Varicella Zoster virus IgG antibodies. Blood VENOUS BLOOD / Unknown 10/27/2022 14:25 EDT 10/28/2022 22:07 EDT Provider Outr Resulting Lab IMMUNOLOGY A ND SEROLOGY ORDERABLES [facility] [address] [place] [address] * RUBELLA IGG ANTIBODY (10/27/2022 14:25 EDT) Rubella IgG Ab Positive See Note 10/30/2022 10:42 EDT [facility] Comment:Positive for IgG ant ibodies to Rubella virus. Blood VENOUS BLOOD / Unknown 10/27/2022 14:25 EDT 10/28/2022 22:07 EDT Provider Outr Resulting Lab CHEMISTRY & BLOOD GAS ORDERABLES [facility] [address] [place] [address] documented in this encounter Visit Diagnoses Not on filedocumented in this encounter Care Teams Tipple Supervisor Relationship Specialty Start Date End Date Unknown, Provider, PCP - General 06/25/21 documented as of this encounter
--- OUTSIDE RECORDS SUMMARY | 2024-04-04 02:10 | XMS_ITS | Encounter Summary ---
Author Organization [facility] Address [address] [place] [address] Care Team Providers Care Windows Support Engineer Name Role Phone Unknown, Provider Primary Care Provider Encounter Details Date Type Department Care Team (Late st Contact Info) Description 06/26/2022 Lab Requisition [facility] Pathology & Laboratory Medicine - [facility] [address] [place], [place] [id number] Outr Resulting Lab, Provider Social History Tobacco [...] 1/2 ANTIGEN AND ANTIBODY, 4TH GENERATION Routine 06/26/2022 13:05 EST documented in this encounter Results * HIV 1/2 ANTIGEN AND ANTIBODY, 4TH GENERATION (06/26/2022 13:05 EST) HIV 1 and 2 Antibody/p24 Antigen, 4th Generation Negative Negative 06/28/2022 16:21 EST [facility] Comment:If acute HIV-1 infec tion is suspected in a high risk patient, submit plasma specimen for HIV-1 RNA quantitation test. Blood VENOUS BLOOD / Unknown 06/26/2022 13:05 EST 06/27/2022 17:10 EST Narrative [facility] - 06/28/2022 16:21 EST Fourth Generation assay performed on the Siemens Centaur XPT. Provider Outr Resulting Lab IMMUNOLOGY A ND SEROLOGY ORDERABLES [facility] [address] [place] [address] documented in this encounter Visit Diagnoses Not on filedocumented in this encounter Care Teams Windows Support Engineer Relationship Specialty Start Date End Date Unknown, Provider, PCP - General 06/25/21 documented as of this encounter
--- OUTSIDE RECORDS SUMMARY | 2024-04-04 02:10 | XMS_ITS | Clinical Summary ---
Author Organization [facility] Address [address] [place] [address] Care Team Providers Care Mainspring Former Arbor End Name Role Phone Unknown, Provider Primary Care Provider [phone] Social History Tobacco Use Types Packs/Day Years Used Date Smoking Tobacco: Never Assessed Interpersonal Safety Answer Date Record ed Physically Hurt Never 05/18/2020 Verbally Threaten Not on file 05/18/2020 Sex and Gender Information Value Date Recorded Sex Assigned at Not on file Gender Identity Not on file Sexual Orientation Not on file Plan of Treatment Health Maintenance Due Date Last Done Comments Hepatitis B Vaccine (1 of 3 - 19+ 3-dose series) 2013 COVID-19 Vaccine (2022-2 4 season) 2023 Hepatitis C Screen Completed 10/27/2022, 0 06/26/2022, 10/17/2019 Procedures Procedure Name Priority Date/Time Associated Diagnosis Comments HEPATITIS C AB W REFLEX TO HCV RNA BY PCR Routine 10/27/2022 14:25 EDT from Last 3 Months or Most Recently Relevant to Health Maintenance Results * HEPATITIS C AB W REFLEX TO HCV RNA BY PCR (10/27/2022 14:25 EDT) Hep C Antibody Negative Negative 10/30/2022 10:[address] [facility] Blood VENOUS BLOOD / Unknown 10/27/2022 14:25 EDT 10/28/2022 22:07 EDT Provider Outr Resulting Lab CHEMISTRY & BLOOD GAS ORDERABLES [facility] [address] [place] [address] from Last 3 Months or Most Recently Relevant to Health Maintenance Care Teams Mainspring Former Arbor End Relationship Specialty Start Date End Date Unknown, Provider, PCP - General 06/25/21
--- OUTSIDE RECORDS SUMMARY | 2024-04-04 02:11 | XMS_ITS | Encounter Summary ---
Author Organization [facility] Address [address] [place] [address] Care Team Providers Care Collision Center Manager Name Role Phone Unknown, Provider Primary Care Provider Encounter Details Date Type Department Care Team (Late st Contact Info) Description 10/17/2019 Lab Requisition [facility] Pathology & Laboratory Medicine - [address] [address] Unknown, Provider, Social History Tobacco Use Types Packs/Day Years [...] REFLEX TO HCV RNA BY PCR Routine 10/17/2019 15:30 EDT HEPATITIS B SURFACE ANTIGEN Routine 10/17/2019 15:30 EDT documented in this encounter Results * HEPATITIS B SURFACE ANTIGEN (10/17/2019 15:30 EDT) Hep B Surface Ag Negative Negative 10/20/2019 10:55 EDT [facility] Blood VENOUS BLOOD / Unknown 10/17/2019 15:30 EDT 10/17/2019 21:37 EDT Provider Unknown CHEMISTRY & BLOOD GA S ORDERABLES [facility] [address] [place] [address] * HEPATITIS C AB W REFLEX TO HCV RNA BY PCR (10/17/2019 15:30 EDT) Hep C Antibody Negative Negative 10/20/2019 11:19 EDT [facility] Blood VENOUS BLOOD / Unknown 10/17/2019 15:30 EDT 10/17/2019 21:37 EDT Provider Unknown CHEMISTRY & BLOOD GA S ORDERABLES [facility] [address] [place] [address] documented in this encounter Visit Diagnoses Not on filedocumented in this encounter Care Teams Collision Center Manager Relationship Specialty Start Date End Date Unknown, Provider, PCP - General 06/25/21 documented as of this encounter
--- OUTSIDE RECORDS SUMMARY | 2024-04-04 02:11 | XMS_ITS | Encounter Summary ---
Author Organization [facility] Address [address] [place] [address] Care Team Providers Care People Manager Name Role Phone Unknown, Provider Primary Care Provider [phone] Encounter Details Date Type Department Care Team (Late st Contact Info) Description 10/17/2019 Lab Requisition [facility] Pathology & Laboratory Medicine - [address] [address] Unknown, Provider, Social History Tobacco Use Types Packs/Day Years Used Date Smoking Tobacco: Never Assessed Sex and Gender Information Value Date Recorded Sex Assigned at Not on file Gender Identity Not on file Sexual Orientation Not on file documented as of this encounter Plan of Treatment Not on file documented as of this encounter Procedures Procedure Name Priority Date/Time Associated Diagnosis Comments [facility] Today 10/17/2019 15:30 EDT [facility] Today 10/17/2019 15:30 EDT HIV 1/2 ANTIGEN AND ANTIBODY, 4TH GENERATION Today 10/17/2019 15:30 EDT documented in this encounter Results * HOLD [facility]ST (10/17/2019 15:30 EDT) Hold Hold 10/17/2019 22:30 EDT [facility] Blood VENOUS BLOOD / Unknown 10/17/2019 15:30 EDT 10/17/2019 21:27 EDT Provider Unknown LAB INFO SERVICE AND SUPPORT & PHONE RESULT [facility] [address] [place] [address] * [facility] (10/17/2019 15:30 EDT) Hold Hold 10/17/2019 22:30 EDT [facility] Blood VENOUS BLOOD / Unknown 10/17/2019 15:30 EDT 10/17/2019 21:27 EDT Provider Unknown LAB INFO SERVICE AND SUPPORT & PHONE RESULT Performing Organization Address [facility] Co de Phone Number [facility] [address] [place] [address] * HIV 1/2 ANTIGEN AND ANTIBODY, 4TH GENERATION (10/17/2019 15:30 EDT) HIV 1 and 2 Antibody/p24 Antigen, 4th Generation Negative Negative 10/20/2019 11:10 EDT [facility] Comment: If acute HIV-1 infection is suspected in a high risk ??patient, submit plasma specimen for HIV-1 RNA quantitation test. Fourth Generation assay performed on the Siemens Centaur. Blood VENOUS BLOOD / Unknown 10/17/2019 15:30 EDT 10/17/2019 21:26 EDT Provider Unknown IMMUNOLOGY AND SEROL OGY ORDERABLES Performing Organization Address [facility] Co de Phone Number [facility] [address] [place] [address] documented in this encounter Visit Diagnoses Not on filedocumented in this encounter Care Teams People Manager Relationship Specialty Start Date End Date Unknown, Provider, PCP - General 06/25/21 documented as of this encounter
--- OUTSIDE RECORDS SUMMARY | 2024-04-04 02:11 | XMS_ITS | Encounter Summary ---
Author Organization [facility] Address [address] [place] [address] Care Team Providers Care Associate Director Data & Analytics Name Role Phone Unknown, Provider Primary Care Provider Encounter Details Date Type Department Care Team (Late st Contact Info) Description 10/17/2019 Lab Requisition [facility] Pathology & Laboratory Medicine - [address] [address] Unknown, Provider, Social History Tobacco Use Types Packs/Day Years Used Date Smoking Tobacco: Never Assessed Sex and Gender Information Value Date Recorded Sex Assigned at Not on file Gender Identity Not on file Sexual Orientation Not on file documented as of this encounter Plan of Treatment Not on file documented as of this encounter Procedures Procedure Name Priority Date/Time Associated Diagnosis Comments SYPHILIS SEROLOGY Routine 10/17/2019 13: 00 EDT RUBELLA IGG ANTIBODY Routine 10/17/2019 13:00 EDT VARICELLA IGG ANTIBODY Routine 10/17/2019 13:00 EDT documented in this encounter Results * SYPHILIS SEROLOGY (10/17/2019 13:00 EDT) Syphilis Serology Negative Negative 10/21/2019 12:26 EDT [facility] Blood VENOUS BLOOD / Unknown 10/17/2019 13:00 EDT 10/17/2019 21:37 EDT Provider Unknown IMMUNOLOGY AND SEROL OGY ORDERABLES [facility] [address] [place] [address] * VARICELLA IGG ANTIBODY (10/17/2019 13:00 EDT) Varicella IgG Ab Positive See Note 10/21/2019 12:17 EDT [facility] Comment:Presence of detectab le Varicella Zoster virus IgG antibodies. Blood VENOUS BLOOD / Unknown 10/17/2019 13:00 EDT 10/17/2019 21:37 EDT Provider Unknown IMMUNOLOGY AND SEROL OGY ORDERABLES Performing Organization Address City/[facility] Co de Phone Number [facility] [address] [place] [address] * RUBELLA IGG ANTIBODY (10/17/2019 13:00 EDT) Rubella IgG Ab Positive See Note 10/21/2019 12:26 EDT [facility] Comment:Positive for IgG ant ibodies to Rubella virus. Blood VENOUS BLOOD / Unknown 10/17/2019 13:00 EDT 10/17/2019 21:37 EDT Provider Unknown CHEMISTRY & BLOOD GA S ORDERABLES Performing Organization Address [facility] Co de Phone Number [facility] [address] [place] [address] documented in this encounter Visit Diagnoses Not on filedocumented in this encounter Care Teams Associate Director Data & Analytics Relationship Specialty Start Date End Date Unknown, Provider, PCP - General 06/25/21 documented as of this encounter
[2024-04-04 16:27] LABS: Panorama Kit Sent via Fed Ex
[2024-04-04 16:44] LABS: Abs Immature Grans 0.04 10^3/uL (0.0-0.06); Absolute Basophil Count 0.04 10^3/uL (0.0-0.2); Absolute Eosinophil Count 0.19 10^3/uL (0.0-0.7); Absolute Lymphocyte Count 2.32 10^3/uL (1.2-3.4); Absolute Monocyte Count 0.43 10^3/uL (0.1-0.8); Absolute Neutrophil Count 7.14 10^3/uL (1.2-6.7); Basophils % 0.4 %; Eosinophils % 1.9 %; HCT 34.4 % (36.0-46.0); HGB 11.6 g/dL (11.2-15.7); Immature Grans % 0.4 %; Lymphocytes % 22.8 %; MCH 30.1 pg (27.0-33.0); MCHC 33.7 % (32.0-36.0); MCV 89 fL (80-95); Monocytes % 4.2 %; Neutrophils % 70.3 %; Platelet Count 288 10^3/uL (130-400); RBC 3.85 10^6/uL (3.93-5.22); RDW 12.1 % (11.7-14.6); RDW-SD 39.2 fL; WBC 10.16 10^3/uL (4.4-10.8)
[2024-04-07 10:27] LABS: Varicella IgG Antibody Positive (See Note)
[2024-04-07 10:29] LABS: Rubella IgG Ab (UVM) Positive (See Note)
[2024-04-07 11:55] LABS: Hepatitis B Surface Ag Negative (Negative)
[2024-04-07 12:21] LABS: HIV-1/2 Ag & Ab Screen Negative (Negative)
[2024-04-07 12:40] LABS: Hepatitis C Ab w Rflx HCV PCR Negative (Negative)
[2024-04-08 14:55] LABS: Syphilis IgG w/Reflex Nonreactive (Nonreactive)
== END 2024-04-04 02:09 | disposition home or self-care (01) ==
LOC: LBO 02:09
PROVIDERS: Advanced Practice Midwife; Visit Provider Advanced Practice Midwife
DX: Z34.91 Encounter for supervision of normal pregnancy, unspecified, first trimester
CPT/HCPCS: 36415; 86787; 86803; 86850; 86900; 86901; 87340; 87389; 85025; 86762; 86780

== ENCOUNTER 2024-04-16 10:15 | Outpatient (CLI) | payer OTHER, SELFPAY ==
--- OUTSIDE RECORDS SUMMARY | 2024-04-16 10:19 | XMS_ITS | Clinical Summary ---
Author Organization [facility] [place] [address] Care Team Providers Care Career Services Assistant Name Role Phone Keith Campo DO Primary Care Provider [phone] Allergies Active Allergy Reactions Criticality Noted Date [...] Procedure Name Priority Date/Time Associated Diagnosis Comments STOCK SAW OPERATOR CYTOLOGY FINAL REPORT Routine 05/17/2016 12:00 PM EST from Last 3 Months or Most Recently Relevant to Health Maintenance Results * Automotive Parts Counter Assistant Cytology Final Report (05/17/2016 12:00 PM EST) Automotive Parts Counter Assistant Cytology Final Report [id number] ?Location: [facility] The signing pathologist has (i) examined the relevant preparation(s) for the specimen(s) and (ii) rendered or confirmed the diagnosis(es). . ? Automotive Parts Counter Assistant Final DIAGNOSIS Normal Negative for Intraepithelial Lesion or Malignancy (NILM). For consensus guidelines for the management of cervical cancer screening test results, please see: ?? http://www.asccp.o rg/guidelines . Electronically signed by: ??JAMIN Gutiérrez(ASCP), Charisse Suh Verified: ??05/29/2016 ?Weight Guesser DISCUSSION Fungal organisms morphologically consistent with Eryn [...] Clinical Genomics and Advanced Technology (CGAT) at [facility]. ? - Bj Choi, PhD, [facility], Director[facility] STATEMENT OF ADEQUACY Specimen submitted is [...] I.U.D.?: ?No Pelvic Radiation: ? No Prior STOCK SAW OPERATOR Therapy?: ? No Hist Abnl Pap/Biopsy?: ??No Hist of HPV Vaccine?: ?? No . CLINICAL INFORMATION Hist of Smoking?: ? No Hist of JUAQUIN exposure?: ??No Clinical Data, Significant Therapy and Clinical Impression ?? : ?? _ Referring Identifier: ??[id number] This Pap Test has been evaluated with the assistance of the [employer] SleepPrep Pap Test Imaging System. Note: The Pap test is a screening test for cervical cancer with an inherent false-negative rate dependent upon several variables. ??For further information please contact the [facility] Laboratory. Reference: ??Ángela VELASQUEZ. ??Tv Production Assistant of Pap Smear Results. ??In: ??Alvino BS, Stanislaw HH, ed. ??The Pap Smear. ??[place]: ??Sin, 2002: ??71-77. [facility] 05/17/2016 12:0 0 PM EST Narrative Resulting Agency Comment Spec In Lab / WKS Dominga Can APRN PATHOLOGY/CYTOLOGY O RDERABLES [facility] [place] [address] from Last 3 Months or Most Recently Relevant to Health Maintenance Care Teams Career Services Assistant Relationship Specialty Start Date End Date Keith Campo DO [address] [place] [id number] [facility] - General 05/17/10
--- OUTSIDE RECORDS SUMMARY | 2024-04-16 10:19 | XMS_ITS | Encounter Summary ---
Author Organization [facility] Address [address] [place] [address] Care Team Providers Care Hand Trucker Name Role Phone Unknown, Provider Primary Care Provider Encounter Details Date Type Department Care Team (Late st Contact Info) Description 04/05/2024 Lab Requisition [facility] Pathology & Laboratory Medicine - [address] [address] Outr Resulting Lab, Provider Social History Tobacco [...] REFLEX TO HCV RNA BY PCR Routine 04/04/2024 16:25 EDT HEPATITIS B SURFACE ANTIGEN Routine 04/04/2024 16:25 EDT documented in this encounter Results * HEPATITIS B SURFACE ANTIGEN (04/04/2024 16:25 EDT) Hep B Surface Ag Negative Negative 04/07/2024 11:50 EDT [facility] Blood VENOUS BLOOD / Unknown 04/04/2024 16:25 EDT 04/05/2024 22:07 EDT Provider Outr Resulting Lab CHEMISTRY & BLOOD GAS ORDERABLES [facility] [address] [place], [place] [id number] * HEPATITIS C AB W REFLEX TO HCV RNA BY PCR (04/04/2024 16:25 EDT) Hep C Antibody Negative Negative 04/07/2024 12:34 EDT [facility] Blood VENOUS BLOOD / Unknown 04/04/2024 16:25 EDT 04/05/2024 22:07 EDT Provider Outr Resulting Lab CHEMISTRY & BLOOD GAS ORDERABLES [facility] [address] [place] [address] documented in this encounter Visit Diagnoses Not on filedocumented in this encounter Care Teams Hand Trucker Relationship Specialty Start Date End Date Unknown, Provider, PCP - General 06/25/21 documented as of this encounter
--- OUTSIDE RECORDS SUMMARY | 2024-04-16 10:19 | XMS_ITS | Encounter Summary ---
Author Organization [facility] Address [address] [place] [address] Care Team Providers Care Senior Electrical Project Manager Name Role Phone Unknown, Provider Primary Care Provider Encounter Details Date Type Department Care Team (Late st Contact Info) Description 10/27/2022 Lab Requisition [facility] Pathology & Laboratory Medicine - [facility] [address] [place], [place] [id number] Outr Resulting Lab, Provider Social History Tobacco [...] 4th Generation Negative Negative 10/30/2022 10:25 EDT [facility] Comment:If acute HIV-1 infec tion is suspected in a high risk patient, submit plasma specimen for HIV-1 RNA quantitation test. Blood VENOUS BLOOD / Unknown 10/27/2022 14:25 EDT 10/28/2022 22:07 EDT Narrative [facility] - 10/30/2022 10:25 EDT Fourth Generation assay performed on the Siemens NEURONIXaur XPT. Provider Outr Resulting Lab IMMUNOLOGY A ND SEROLOGY ORDERABLES [facility] [address] [place] [address] documented in this encounter Visit Diagnoses Not on filedocumented in this encounter Care Teams Senior Electrical Project Manager Relationship Specialty Start Date End Date Unknown, Provider, PCP - General 06/25/21 documented as of this encounter
--- OUTSIDE RECORDS SUMMARY | 2024-04-16 10:19 | XMS_ITS | Encounter Summary ---
Author Organization [facility] Address [address] [place] [address] Care Team Providers Care Combat Control Manager Name Role Phone Unknown, Provider Primary Care Provider Encounter Details Date Type Department Care Team (Late st Contact Info) Description 10/27/2022 Lab Requisition [facility] Pathology & Laboratory Medicine - [facility] [address] [place] [address] Outr Resulting Lab, Provider Social History Tobacco [...] Surface Ag Negative Negative 10/30/2022 10:16 EDT [facility] Blood VENOUS BLOOD / Unknown 10/27/2022 14:25 EDT 10/28/2022 22:07 EDT Provider Outr Resulting Lab CHEMISTRY & BLOOD GAS ORDERABLES [facility] [address] [place] [address] * HEPATITIS C AB W REFLEX TO HCV RNA BY PCR (10/27/2022 14:25 EDT) Hep C Antibody Negative Negative 10/30/2022 10:13 EDT [facility] Blood VENOUS BLOOD / Unknown 10/27/2022 14:25 EDT 10/28/2022 22:07 EDT Provider Outr Resulting Lab CHEMISTRY & BLOOD GAS ORDERABLES [facility] [address] [place] [address] documented in this encounter Visit Diagnoses Not on filedocumented in this encounter Care Teams Combat Control Manager Relationship Specialty Start Date End Date Unknown, Provider, PCP - General 06/25/21 documented as of this encounter
--- OUTSIDE RECORDS SUMMARY | 2024-04-16 10:19 | XMS_ITS | Encounter Summary ---
Author Organization [facility] Address [address] [place] [address] Care Team Providers Care Intervention Specialist Name Role Phone Unknown, Provider Primary Care Provider Encounter Details Date Type Department Care Team (Late st Contact Info) Description 06/26/2022 Lab Requisition [facility] Pathology & Laboratory Medicine - [facility] [address] [place] [address] Outr Resulting Lab, Provider Recurrent loss Social [...] Rashid Tsai MD PhD 06/29/2022 23:12 EST [facility] Blood VENOUS BLOOD / Unknown 06/26/2022 13:05 EST 06/27/2022 17:11 EST Provider Outr Resulting Lab HEMATOLOGY & PF4 ORDERABLES Performing Organization Address [facility] Co de Phone Number [facility] [address] [place] [address] * SILICA CONFIRMATION TEST (06/26/2022 13:05 EST) Silica Clot Confirm 41.1 27.2 - 43.3 secs 06/29/2022 12:31 [facility] Silica Clot TR Ratio 1.13 <=1.16 06/29/2022 12:31 [facility] Blood VENOUS BLOOD / Unknown 06/26/2022 13:05 EST 06/27/2022 17:11 EST Provider Outr Resulting Lab HEMATOLOGY & PF4 ORDERABLES Performing Organization Address [facility] de Phone Number [facility] [address] [place] [address] * CHROMOSOME ANALYSIS (06/26/2022 13:05 EST) Pathologist [facility] CYTOGENETICS INTERPRETATION Normal female karyotype. 08/01/2022 16:39 [facility] Attestation By the signature below, the attending physician certifies that they have 1) personally conducted a gross and/or microscopic examination of the described specimen(s), and/or personally interpreted the results of laboratory testing of the described specimen(s), and 2) personally rendered or confirmed the above diagnosis. 08/01/2022 16:39 [facility] at 1639 Clinical History Recurrent Loss 08/01/2022 16:39 [facility] Testing Performed G-banded karyotype 08/01/2022 16:39 [facility] Report Cells counted: 30 Cells analyzed: 11 Cells karyotyped: 11 Band resolution: 550 08/01/2022 16:39 [facility] Karyotype 46,XX 08/01/2022 16:39 [facility] Scanned Images 08/01/2022 16:39 EST [facility] ZZUNK VENOUS BLOOD / Unknown 06/26/2022 13:05 EST 06/28/2022 8:13 EST Provider Outr Resulting Lab PATHOLOGY OR DERABLES Performing Organization Address City/[facility] Co de Phone Number [facility] [address] [place] [address] * THYROPEROXIDASE ANTIBODY (06/26/2022 13:05 EST) Thyroperoxidase Ab <28 <=60 U/mL 2022 19:23 EST [facility] Blood VENOUS BLOOD / Unknown 06/26/2022 13:05 EST 06/27/2022 17:10 EST Provider Outr Resulting Lab CHEMISTRY & BLOOD GAS ORDERABLES Performing Organization Address [facility] Co de Phone Number [facility] [address] [place] [address] * (ABNORMAL) LUPUS ANTICOAGULANT CASCADE (06/26/2022 13:05 EST) Pathologist [facility] [place] Summary Negative for detection of lupus anticoagulant [...] MD PhD 06/29/22 23:12 06/29/2022 23:12 EST [facility] Dilute Viper Venom 38.1 25.2 - 42.2 secs 06/29/2022 23:12 EST [facility] Silica Clotting Time 52.1(H) 30.2 - 48.4 secs 06/29/2022 23:12 EST [facility] Blood VENOUS BLOOD / Unknown 06/26/2022 13:05 EST 06/27/2022 17:11 EST Provider Outr Resulting Lab HEMATOLOGY & PF4 ORDERABLES Performing Organization Address City/State/[facility] Co de Phone Number [facility] [address] [place] [address] documented in this encounter Visit Diagnoses Diagnosis Recurrent loss documented in this encounter Care Teams Intervention Specialist Relationship Specialty Start Date End Date Unknown, Provider, PCP - General 06/25/21 documented as of this encounter
--- OUTSIDE RECORDS SUMMARY | 2024-04-16 10:19 | XMS_ITS | Encounter Summary ---
Author Organization [facility] Address [address] [place] [address] Care Team Providers Care Health Policy Manager Name Role Phone Unknown, Provider Primary Care Provider Encounter Details Date Type Department Care Team (Late st Contact Info) Description 06/26/2022 Lab Requisition [facility] Pathology & Laboratory Medicine - [address] [address] Outr Resulting Lab, Provider Social History Tobacco [...] gonorrhoeae Result Negative Negative 06/28/2022 13:[address] [facility] Chlamydia trachomatis Result Negative Negative 06/28/2022 13:[address] [facility] Urine URINE / Unknown 06/26/2022 1 1:25 EST 06/27/2022 21:03 EST Narrative [facility] - 06/28/2022 13:19 EST A first catch urine specimen is acceptable for detection of Gonorrhea and Chlamydia, but might detect up to 10% fewer infections when compared with vaginal and endocervical swab samples. Provider Outr Resulting Lab MICROBIOLOGY - GENERAL ORDERABLES [facility] [address] [place] [address] documented in this encounter Visit Diagnoses Not on filedocumented in this encounter Care Teams Health Policy Manager Relationship Specialty Start Date End Date Unknown, Provider, PCP - General 06/25/21 documented as of this encounter
--- OUTSIDE RECORDS SUMMARY | 2024-04-16 10:19 | XMS_ITS | Encounter Summary ---
Author Organization [facility] Address [address] [place] [address] Care Team Providers Care Group Chief Operator Name Role Phone Unknown, Provider Primary Care Provider Encounter Details Date Type Department Care Team (Late st Contact Info) Description 10/27/2022 Lab Requisition [facility] Pathology & Laboratory Medicine - [facility] [address] [place], [place] [address] Outr Resulting Lab, Provider Social History Tobacco [...] Ab Positive See Note 10/30/2022 10:40 EDT [facility] Comment:Presence of detectab le Varicella Zoster virus IgG antibodies. Blood VENOUS BLOOD / Unknown 10/27/2022 14:25 EDT 10/28/2022 22:07 EDT Provider Outr Resulting Lab IMMUNOLOGY A ND SEROLOGY ORDERABLES [facility] [address] [place] [address] * RUBELLA IGG ANTIBODY (10/27/2022 14:25 EDT) Rubella IgG Ab Positive See Note 10/30/2022 10:42 EDT [facility] Comment:Positive for IgG ant ibodies to Rubella virus. Blood VENOUS BLOOD / Unknown 10/27/2022 14:25 EDT 10/28/2022 22:07 EDT Provider Outr Resulting Lab CHEMISTRY & BLOOD GAS ORDERABLES [facility] [address] [place] [address] documented in this encounter Visit Diagnoses Not on filedocumented in this encounter Care Teams Group Chief Operator Relationship Specialty Start Date End Date Unknown, Provider, PCP - General 06/25/21 documented as of this encounter
--- OUTSIDE RECORDS SUMMARY | 2024-04-16 10:19 | XMS_ITS | Encounter Summary ---
[place] [address] Care Team Providers Care Stock Feeder Name Role Phone Keith Campo DO Primary Care Provider [phone] Encounter Details Date Type Department Care Team (Late st Contact Info) Description 07/19/2010 10:00 AM EST Office Visit Dermatology [address] [facility] [address] [place], [place] [id number] Claudio Grey MD [address] [facility] [place] [address] Social History Tobacco Use Types Packs/Day Years Used Date Smoking Tobacco: Never Assessed Sex and Gender Information Value Date Recorded Sex Assigned at Not on file Gender Identity Not on file Sexual Orientation Not on file documented as of this encounter Plan of Treatment Not on file documented as of this encounter Visit Diagnoses Not on filedocumented in this encounter Care Teams Stock Feeder Relationship Specialty Start Date End Date Keith Campo DO [address] [place] [address] PCP - General 05/17/10 documented as of this encounter
--- OUTSIDE RECORDS SUMMARY | 2024-04-16 10:19 | XMS_ITS | Encounter Summary ---
Author Organization [facility] Address [address] [place] [address] Care Team Providers Care Grinder Set Up Operator Thread Tool Name Role Phone Unknown, Provider Primary Care Provider Encounter Details Date Type Department Care Team (Late st Contact Info) Description 06/26/2022 Lab Requisition [facility] Pathology & Laboratory Medicine - [facility] [address] [place] [address] Outr Resulting Lab, Provider Social History Tobacco [...] 4th Generation Negative Negative 06/28/2022 16:21 EST [facility] Comment:If acute HIV-1 infec tion is suspected in a high risk patient, submit plasma specimen for HIV-1 RNA quantitation test. Blood VENOUS BLOOD / Unknown 06/26/2022 13:05 EST 06/27/2022 17:10 EST Narrative [facility] - 06/28/2022 16:21 EST Fourth Generation assay performed on the Siemens [employer]aur XPT. Provider Outr Resulting Lab IMMUNOLOGY A ND SEROLOGY ORDERABLES [facility] [address] [place] [address] documented in this encounter Visit Diagnoses Not on filedocumented in this encounter Care Teams Grinder Set Up Operator Thread Tool Relationship Specialty Start Date End Date Unknown, Provider, PCP - General 06/25/21 documented as of this encounter
--- OUTSIDE RECORDS SUMMARY | 2024-04-16 10:19 | XMS_ITS | Referral Summary ---
Author Organization [facility] Address [address] [place] [address] Care Team Providers Care Millinery Worker Name Role Phone Unknown, Provider Primary Care Provider Encounters Date Type Department Care Team Description 04/05/2024 Lab Requisition [facility] Pathology & Laboratory [address] [address] Outr Resulting Lab, Provider 04/05/2024 Lab Requisition [facility] & Laboratory [address] [address] Outr Resulting Lab, Provider 04/05/2024 Lab Requisition [facility] Pathology & Laboratory [facility] [address] [place] [address] Outr Resulting Lab, Provider from Last 3 Months Social History Tobacco Use Types Packs/Day Years [...] Name Priority Date/Time Associated Diagnosis Comments HEPATITIS B SURFACE ANTIGEN Routine 04/04/2024 16:25 EDT HEPATITIS C AB W REFLEX TO HCV RNA BY PCR Routine 04/04/2024 16:25 EDT VARICELLA IGG ANTIBODY Routine 04/04/2024 16:25 EDT RUBELLA IGG ANTIBODY Routine 04/04/2024 16:25 EDT HIV 1/2 ANTIGEN AND ANTIBODY, 4TH GENERATION Routine 04/04/2024 16:25 EDT from Last 3 Months Results * HEPATITIS C AB W REFLEX TO HCV RNA BY PCR (04/04/2024 16:25 EDT) Hep C Antibody Negative Negative 04/07/2024 12:[address] [facility] Blood VENOUS BLOOD / Unknown 04/04/2024 16:25 EDT 04/05/2024 22:07 EDT Provider Outr Resulting Lab CHEMISTRY & BLOOD GAS ORDERABLES Performing Organization Address City/[facility]/ZIP Co de Phone Number [facility] [address] [place] [address] * RUBELLA IGG ANTIBODY (04/04/2024 16:25 EDT) Rubella IgG Ab Positive See Note 04/07/2024 10:[address] [facility] Comment:Positive for IgG ant ibodies to Rubella virus. Blood VENOUS BLOOD / Unknown 04/04/2024 16:25 EDT 04/05/2024 22:07 EDT Provider Outr Resulting Lab CHEMISTRY & BLOOD GAS ORDERABLES Performing Organization Address [facility]/ZIP Co de Phone Number [facility] [address] [place] [address] * HEPATITIS B SURFACE ANTIGEN (04/04/2024 16:25 EDT) Hep B Surface Ag Negative Negative 04/07/2024 11:[address] [facility] Blood VENOUS BLOOD / Unknown 04/04/2024 16:25 EDT 04/05/2024 22:07 EDT Provider Outr Resulting Lab CHEMISTRY & BLOOD GAS ORDERABLES Performing Organization Address City/[facility]/ZIP Co de Phone Number [facility] [address] [place], [place] [id number] * VARICELLA IGG ANTIBODY (04/04/2024 16:25 EDT) Varicella IgG Ab Positive See Note 04/07/2024 10:[address] [facility] Comment:Presence of detectab le Varicella Zoster virus IgG antibodies. Blood VENOUS BLOOD / Unknown 04/04/2024 16:25 EDT 04/05/2024 22:07 EDT Provider Outr Resulting Lab IMMUNOLOGY A ND SEROLOGY ORDERABLES Performing Organization Address [facility]/ZIP Co de Phone Number [facility] [address] [place] [address] * HIV 1/2 ANTIGEN AND ANTIBODY, 4TH GENERATION (04/04/2024 16:25 EDT) HIV 1 and 2 Antibody/p24 Antigen, 4th Generation Negative Negative 04/07/2024 12:[address] [facility] Comment:If acute HIV-1 infec tion is suspected in a high risk patient, submit plasma specimen for HIV-1 RNA quantitation test. Blood VENOUS BLOOD / Unknown 04/04/2024 16:25 EDT 04/05/2024 22:07 EDT Narrative [facility] - 04/07/2024 12:16 EDT Fourth Generation assay performed on the Siemens Centaur XPT. Provider Outr Resulting Lab IMMUNOLOGY A ND SEROLOGY ORDERABLES Performing Organization Address City/[facility]/ZIP Co de Phone Number [facility] [address] [place], [place] [address] from Last 3 Months Care Teams Millinery Worker Relationship Specialty Start Date End Date Unknown, Provider, PCP - General 06/25/21
--- OUTSIDE RECORDS SUMMARY | 2024-04-16 10:19 | XMS_ITS | Encounter Summary ---
Author Organization [facility] Address [address] [place] [address] Care Team Providers Care Produce Department Supervisor Name Role Phone Unknown, Provider Primary Care Provider Encounter Details Date Type Department Care Team (Late st Contact Info) Description 09/06/2022 Lab Requisition [facility] Pathology & Laboratory Medicine - [facility] [place] [address] [place] [address] Outr Resulting Lab, Provider Social History Tobacco [...] 17.4 See Table ng/mL 09/06/2022 22:[address] [facility] Comment: Female Reference Ranges: [...] [facility] [address] [place] [address] documented in this encounter Visit Diagnoses Not on filedocumented in this encounter Care Teams Produce Department Supervisor Relationship Specialty Start Date End Date Unknown, Provider, PCP - General 06/25/21 documented as of this encounter
--- OUTSIDE RECORDS SUMMARY | 2024-04-16 10:19 | XMS_ITS | Encounter Summary ---
Author Organization [facility] Address [address] [place] [address] Care Team Providers Care Utility Agent Name Role Phone Unknown, Provider Primary Care Provider [phone] Encounter Details Date Type Department Care Team (Late st Contact Info) Description 04/05/2024 Lab Requisition [facility] Pathology & Laboratory Medicine - [facility] [address], [place] [address] Outr Resulting Lab, Provider Social History Tobacco [...] Associated Diagnosis Comments RUBELLA IGG ANTIBODY Routine 04/04/2024 16:25 EDT VARICELLA IGG ANTIBODY Routine 04/04/2024 16:25 EDT documented in this encounter Results * VARICELLA IGG ANTIBODY (04/04/2024 16:25 EDT) Varicella IgG Ab Positive See Note 04/07/2024 10:21 EDT [facility] Comment:Presence of detectab le Varicella Zoster virus IgG antibodies. Blood VENOUS BLOOD / Unknown 04/04/2024 16:25 EDT 04/05/2024 22:07 EDT Provider Outr Resulting Lab IMMUNOLOGY A ND SEROLOGY ORDERABLES [facility] [address] [place], [place] [address] * RUBELLA IGG ANTIBODY (04/04/2024 16:25 EDT) Rubella IgG Ab Positive See Note 04/07/2024 10:23 EDT [facility] Comment:Positive for IgG ant ibodies to Rubella virus. Blood VENOUS BLOOD / Unknown 04/04/2024 16:25 EDT 04/05/2024 22:07 EDT Provider Outr Resulting Lab CHEMISTRY & BLOOD GAS ORDERABLES [facility] [address] [place], [place] [address] documented in this encounter Visit Diagnoses Not on filedocumented in this encounter Care Teams Utility Agent Relationship Specialty Start Date End Date Unknown, Provider, PCP - General 06/25/21 documented as of this encounter
--- OUTSIDE RECORDS SUMMARY | 2024-04-16 10:19 | XMS_ITS | Encounter Summary ---
Author Organization [facility] Address [address] [place] [address] Care Team Providers Care Disk Grinder Name Role Phone Unknown, Provider Primary Care Provider [phone] Encounter Details Date Type Department Care Team (Late st Contact Info) Description 10/27/2022 Lab Requisition [facility] Pathology & Laboratory Medicine - [address] [address] Sandra Soliz, CONSUMER INSIGHTS SPECIALIST [address] [place] [address] Encounter for other general examination [...] System with Manual Evaluation 11/08/2022 8:17 EDT [facility] Specimen Adequacy Satisfactory for Evaluation - transformation zone component absent 11/08/2022 8:17 EDT [facility] General Categorization Negative for intraepithelial lesion or malignancy 11/08/2022 8:17 EDT [facility] Attestation . 11/08/2022 8:17 EDT [facility] at 0817 Clinical History See below 11/09/19 8:17 EDT [facility] Performing Lab [facility] 11/08/2022 8:17 EDT [facility] Scanned Images 11/08/2022 8:17 EDT [facility] Papanicolaou smear specimen (specimen) CERVIX UTERI STRUCTURE / Unknown 10/27/2022 13:45 EDT 10/31/2022 9:03 EDT Sandra Soliz APN PATHOLOGY ORDERAB LES Performing Organization Address [facility] Co de Phone Number [facility] [address] [place] [address] * CHLAMYDIA/N. GONORRHOEAE AMPLIFIED RNA, THINPREP (10/27/2022 13:45 EDT) Neisseria gonorrhoeae Result Negative Negative 10/30/2022 14:31 EDT [facility] Chlamydia trachomatis Result Negative Negative 10/30/2022 14:31 EDT [facility] Papanicolaou smear specimen (specimen) CERVIX UTERI STRUCTURE / Unknown 10/27/2022 13:45 EDT 10/30/2022 9:37 EDT Sandra Soliz APN MICROBIOLOGY - GE NERAL ORDERABLES Performing Organization Address City/[facility]/ZIP Co de Phone Number [facility] [address] [place] [address] documented in this encounter Visit Diagnoses Diagnosis Encounter for other general examination documented in this encounter Care Teams Disk Grinder Relationship Specialty Start Date End Date Unknown, Provider, PCP - General 06/25/21 documented as of this encounter
--- OUTSIDE RECORDS SUMMARY | 2024-04-16 10:19 | XMS_ITS | Encounter Summary ---
Author Organization [facility] Address [address] [place] [address] Care Team Providers Care Brain Wave Technician Name Role Phone Unknown, Provider Primary Care Provider Encounter Details Date Type Department Care Team (Late st Contact Info) Description 06/26/2022 Lab Requisition [facility] Pathology & Laboratory Medicine - [address] [address] Outr Resulting Lab, Provider Social History Tobacco [...] Ab, Total Negative Negative 06/29/2022 10:30 EST [facility] Blood VENOUS BLOOD / Unknown 06/26/2022 13:05 EST 06/27/2022 17:10 EST Provider Outr Resulting Lab CHEMISTRY & BLOOD GAS ORDERABLES [facility] [address] [place] [address] * HEPATITIS B SURFACE ANTIGEN (06/26/2022 13:05 EST) Hep B Surface Ag Negative Negative 06/28/2022 8:53 EST [facility] Blood VENOUS BLOOD / Unknown 06/26/2022 13:05 EST 06/27/2022 17:10 EST Provider Outr Resulting Lab CHEMISTRY & BLOOD GAS ORDERABLES Performing Organization Address City/[facility]/ZIP Co de Phone Number [facility] [address] [place] [address] * HEPATITIS C AB W REFLEX TO HCV RNA BY PCR (06/26/2022 13:05 EST) Hep C Antibody Negative Negative 06/28/2022 10:42 EST [facility] Blood VENOUS BLOOD / Unknown 06/26/2022 13:05 EST 06/27/2022 17:10 EST Provider Outr Resulting Lab CHEMISTRY & BLOOD GAS ORDERABLES Performing Organization Address City/[facility]/ZIP Co de Phone Number [facility] [address] [place] [address] documented in this encounter Visit Diagnoses Not on filedocumented in this encounter Care Teams Brain Wave Technician Relationship Specialty Start Date End Date Unknown, Provider, PCP - General 06/25/21 documented as of this encounter
--- OUTSIDE RECORDS SUMMARY | 2024-04-16 10:19 | XMS_ITS | Encounter Summary ---
Author Organization [facility] [place] [address] Care Team Providers Care Plaster Pattern Caster Name Role Phone Keith Campo DO Primary Care Provider [phone] Encounter Details Date Type Department Care Team (Latest Contact Info) Description 05/17/2016 9:27 PM EST - 05/17/2016 11:59 PM EST [place] [phone] Discharge Disposition: Home Social History Tobacco Use [...] Comments HPV Routine 05/17/2016 12:00 PM EST CONVERTING TECHNICIAN CYTOLOGY INTERPRETATION Routine 05/17/2016 12:00 PM EST CONVERTING TECHNICIAN CYTOLOGY FINAL REPORT Routine 05/17/2016 12:00 PM EST documented in this encounter Results * Hollow Handle Knife Assembler Cytology Final Report (05/17/2016 12:00 PM EST) Hollow Handle Knife Assembler Cytology Final Report [id number] ?Location: [facility] The signing pathologist has (i) examined the relevant preparation(s) for the specimen(s) and (ii) rendered or confirmed the diagnosis(es). . ? Hollow Handle Knife Assembler Final DIAGNOSIS Normal Negative for Intraepithelial Lesion or Malignancy (NILM). For consensus guidelines for the management of cervical cancer screening test results, please see: ?? http://www.asccp.o rg/guidelines . Electronically signed by: ??JAMIN Gutiérrez(ASCP), Charisse Suh Verified: ??05/29/2016 ?Arranging Funeral Director DISCUSSION Fungal organisms morphologically consistent with Eryn [...] Clinical Gen[facility] (CGAT) [place] [facility] ? - Bj Choi, PhD, [facility], Director-[facility] STATEMENT OF ADEQUACY Specimen submitted [...] I.U.D.?: ?No Pelvic Radiation: ? No Prior CONVERTING TECHNICIAN Therapy?: ? No Hist Abnl Pap/Biopsy?: ??No Hist of HPV Vaccine?: ?? No . CLINICAL INFORMATION Hist of Smoking?: ? No Hist of JUAQUIN exposure?: ??No Clinical Data, Significant Therapy and Clinical Impression ?? : ?? _ Referring Identifier: ??[id number] This Pap Test has been evaluated with the assistance of the [employer] Pap Test Imaging System. Note: The Pap test is a screening test for cervical cancer with an inherent false-negative rate dependent upon several variables. ??For further information please contact the [facility]. Reference: ??Ángela VELASQUEZ. ??Chemical Dependency Nurse of Pap Smear Results. ??In: ??Alvino BS, Stanislaw HH, ed. ??The Pap Smear. ??[place]: ??Sin, 2002: ??71-77. [facility] 05/17/2016 12:0 0 PM EST Narrative Resulting Agency Comment Spec In Lab / WKS Dominga Can APRN PATHOLOGY/CYTOLOGY O RDERABLES [facility] [place] [address] * CONVERTING TECHNICIAN Cytology Interpretation (05/17/2016 12:00 PM EST) Hollow Handle Knife Assembler Cytology Interpretation NILM [facility] Comment:Hollow Handle Knife Assembler Cytology Final R eport Hollow Handle Knife Assembler Cytology Comment Present [facility] Endocervical Component Not Present [facility] AP Specimen 05/17/2016 12:0 0 PM EST 05/29/2016 8:14 AM EST Narrative Resulting Agency Comment Spec In Lab / WKS Dominga Can GAS DISPENSER PATHOLOGY/CYTOLOGY O RDERABLES Performing Organization Address [facility] Co de Phone Number [facility] [place] [address] * HPV (05/17/2016 12:00 PM EST) HPV16 NEGATIVE NEGATIVE [facility] HPV 18 NEGATIVE NEGATIVE [facility] HPV Other HR NEGATIVE NEGATIVE [facility] HPV Interpretation See Comment [facility] Comment: NEGATIVE for high-risk HPV *. [...] Spec In Lab / WKS Dominga Can GAS DISPENSER PATHOLOGY/CYTOLOGY O RDERABLES Performing Organization Address [facility] Co de Phone Number [facility] [place] [address] documented in this encounter Visit Diagnoses Not on filedocumented in this encounter Care Teams Plaster Pattern Caster Relationship Specialty Start Date End Date Keith Campo DO [address] [place] [phone] PCP - General 05/17/10 documented as of this encounter
--- OUTSIDE RECORDS SUMMARY | 2024-04-16 10:19 | XMS_ITS | Encounter Summary ---
Author Organization [facility] Address [address] [place] [address] Care Team Providers Care Kiln Charger Name Role Phone Unknown, Provider Primary Care Provider Encounter Details Date Type Department Care Team (Late st Contact Info) Description 04/05/2024 Lab Requisition [facility] Pathology & Laboratory Medicine - [facility] [address] [place] [address] Outr Resulting Lab, Provider Social History Tobacco [...] ANTIBODY, 4TH GENERATION Routine 04/04/2024 16:25 EDT documented in this encounter Results * HIV 1/2 ANTIGEN AND ANTIBODY, 4TH GENERATION (04/04/2024 16:25 EDT) HIV 1 and 2 Antibody/p24 Antigen, 4th Generation Negative Negative 04/07/2024 12:16 EDT [facility] Comment:If acute HIV-1 infec tion is suspected in a high risk patient, submit plasma specimen for HIV-1 RNA quantitation test. Blood VENOUS BLOOD / Unknown 04/04/2024 16:25 EDT 04/05/2024 22:07 EDT Narrative [facility] - 04/07/2024 12:16 EDT Fourth Generation assay performed on the Siemens Good Greensaur XPT. Provider Outr Resulting Lab IMMUNOLOGY A ND SEROLOGY ORDERABLES [facility] [address] [place] [address] documented in this encounter Visit Diagnoses Not on filedocumented in this encounter Care Teams Kiln Charger Relationship Specialty Start Date End Date Unknown, Provider, PCP - General 06/25/21 documented as of this encounter
--- OUTSIDE RECORDS SUMMARY | 2024-04-16 10:19 | XMS_ITS | Clinical Summary ---
Author Organization [facility] Address [address] [place] [address] Care Team Providers Care Bobbin Handler Name Role Phone Unknown, Provider Primary Care Provider Encounters Date Type Department Care Team Description 04/05/2024 Lab Requisition [facility] Pathology & Laboratory [address] [address] Outr Resulting Lab, Provider 04/05/2024 Lab Requisition [facility] Pathology & Laboratory [address] [address] Outr Resulting Lab, Provider 04/05/2024 Lab Requisition [facility] Pathology & Laboratory [address] [address] Outr Resulting Lab, Provider from Last 3 [...] - 19+ 3-dose series) 2013 COVID-19 Vaccine (2023-2 5 season) 2024 Hepatitis C Screen Completed 04/04/2024, 0 10/27/2022, 06/26/2022, Additional history exists Procedures Procedure Name Priority Date/Time Associated Diagnosis [...] C Antibody Negative Negative 04/07/2024 12:34 EDT [facility] Blood VENOUS BLOOD / Unknown 04/04/2024 16:25 EDT 04/05/2024 22:07 EDT Provider Outr Resulting Lab CHEMISTRY & BLOOD GAS ORDERABLES Performing Organization Address [facility]/ZIP Co de Phone Number [facility] [address] [place] [address] * RUBELLA IGG ANTIBODY (04/04/2024 16:25 EDT) Rubella IgG Ab Positive See Note 04/07/2024 10:23 EDT [facility] Comment:Positive for IgG ant ibodies to Rubella virus. Blood VENOUS BLOOD / Unknown 04/04/2024 16:25 EDT 04/05/2024 22:07 EDT Provider Outr Resulting Lab CHEMISTRY & BLOOD GAS ORDERABLES Performing Organization Address City/[facility]/ZIP Co de Phone Number [facility] [address] [place] [address] * HEPATITIS B SURFACE ANTIGEN (04/04/2024 16:25 EDT) Hep B Surface Ag Negative Negative 04/07/2024 11:50 EDT [facility] Blood VENOUS BLOOD / Unknown 04/04/2024 16:25 EDT 04/05/2024 22:07 EDT Provider Outr Resulting Lab CHEMISTRY & BLOOD GAS ORDERABLES [facility] [address], [place] [id number] * VARICELLA IGG ANTIBODY (04/04/2024 16:25 EDT) Varicella IgG Ab Positive See Note 04/07/2024 10:21 EDT [facility] Comment:Presence of detectab le Varicella Zoster virus IgG antibodies. Blood VENOUS BLOOD / Unknown 04/04/2024 16:25 EDT 04/05/2024 22:07 EDT Provider Outr Resulting Lab IMMUNOLOGY A ND SEROLOGY ORDERABLES Performing Organization Address [facility] Co de Phone Number [facility] [address] [place] [address] * HIV 1/2 ANTIGEN AND ANTIBODY, 4TH GENERATION (04/04/2024 16:25 EDT) HIV 1 and 2 Antibody/p24 Antigen, 4th Generation Negative Negative 04/07/2024 12:16 EDT [facility] Comment:If acute HIV-1 infec tion is suspected in a high risk patient, submit plasma specimen for HIV-1 RNA quantitation test. Blood VENOUS BLOOD / Unknown 04/04/2024 16:25 EDT 04/05/2024 22:07 EDT Narrative [facility] - 04/07/2024 12:16 EDT Fourth Generation assay performed on the Siemens Centaur XPT. Provider Outr Resulting Lab IMMUNOLOGY A ND SEROLOGY ORDERABLES Performing Organization Address City/[facility]/ZIP Co de Phone Number [facility] [address] [place] [address] from Last 3 Months Care Teams Bobbin Handler Relationship Specialty Start Date End Date Unknown, Provider, PCP - General 06/25/21
--- OUTSIDE RECORDS SUMMARY | 2024-04-16 10:20 | XMS_ITS | Encounter Summary ---
Author Organization [facility] Address [address] [place] [address] Care Team Providers Care Teaching Specialists Name Role Phone Unknown, Provider Primary Care Provider [phone] Encounter Details Date Type Department Care Team (Late st Contact Info) Description 10/17/2019 Lab Requisition [facility] Pathology & Laboratory Medicine - [facility] [address] [place] [address] Unknown, Provider, Social History Tobacco Use Types Packs/Day Years Used Date Smoking Tobacco: Never Assessed Sex and Gender Information Value Date Recorded Sex Assigned at Not on file Gender Identity Not on file Sexual Orientation Not on file documented as of this encounter Plan of Treatment Not on file documented as of this encounter Procedures Procedure Name Priority Date/Time Associated Diagnosis Comments HOLD SST Today 10/17/2019 15:30 EDT HOLD SST Today 10/17/2019 15:30 EDT HIV 1/2 ANTIGEN AND ANTIBODY, 4TH GENERATION Today 10/17/2019 15:30 EDT documented in this encounter Results * HOLD SST (10/17/2019 15:30 EDT) Hold Hold 10/17/2019 22:30 EDT [facility] Blood VENOUS BLOOD / Unknown 10/17/2019 15:30 EDT 10/17/2019 21:27 EDT Provider Unknown LAB INFO SERVICE AND SUPPORT & PHONE RESULT [facility] [address] [place] [address] * HOLD [facility] (10/17/2019 15:30 EDT) Hold Hold 10/17/2019 22:30 EDT [facility] Blood VENOUS BLOOD / Unknown 10/17/2019 15:30 EDT 10/17/2019 21:27 EDT Provider Unknown LAB INFO SERVICE AND SUPPORT & PHONE RESULT Performing Organization Address City/[facility] Co de Phone Number [facility] [address] [place] [address] * HIV 1/2 ANTIGEN AND ANTIBODY, 4TH GENERATION (10/17/2019 15:30 EDT) HIV 1 and 2 Antibody/p24 Antigen, 4th Generation Negative Negative 10/20/2019 11:10 EDT [facility] Comment: If acute HIV-1 infection is suspected in a high risk ??patient, submit plasma specimen for HIV-1 RNA quantitation test. Fourth Generation assay performed on the Siemens Centaur. Blood VENOUS BLOOD / Unknown 10/17/2019 15:30 EDT 10/17/2019 21:26 EDT Provider Unknown IMMUNOLOGY AND SEROL OGY ORDERABLES Performing Organization Address [facility] Co de Phone Number [facility] [address] [place] [address] documented in this encounter Visit Diagnoses Not on filedocumented in this encounter Care Teams Teaching Specialists Relationship Specialty Start Date End Date Unknown, Provider, PCP - General 06/25/21 documented as of this encounter
--- OUTSIDE RECORDS SUMMARY | 2024-04-16 10:20 | XMS_ITS | Encounter Summary ---
Author Organization [facility] Address [address] [place] [address] Care Team Providers Care English Tutor Name Role Phone Unknown, Provider Primary Care Provider Encounter Details Date Type Department Care Team (Late st Contact Info) Description 06/22/2021 Lab Requisition [facility] Pathology & Laboratory Medicine - [facility] [address] [place] [address] Outr Resulting Lab, Provider Social History Tobacco [...] Priority Date/Time Associated Diagnosis Comments ZZCOVID-19 TEST [facility] LAB PCR Today 06/22/2021 8:22 EST COVID-19 TESTING Routine 06/22/2021 8:22 EST documented in this encounter Results * COVID-19 TEST [facility] LAB PCR (06/22/2021 8:22 EST) Swab 06/22/2021 8:22 EST 06/22/2021 15:33 EST Provider Outr Resulting Lab MICROBIOLOGY - GENERAL ORDERABLES [facility] [address] [place] [address] * COVID-19 TESTING (06/22/2021 8:22 EST) COVID-19 rt-PCR Result Negative Negative 06/22/2021 20:42 EST [facility] Comment: This test has not [...] history, and epidemiological information. Performed on the [employer] Fusion instrument Performing Lab [place] [facility] Lab 06/22/2021 20:42 EST [facility] Swab 06/22/2021 8:22 EST 06/22/2021 15:33 EST Provider Outr Resulting Lab MICROBIOLOGY - GENERAL ORDERABLES [facility] [address] [place] [address] documented in this encounter Visit Diagnoses Not on filedocumented in this encounter Care Teams English Tutor Relationship Specialty Start Date End Date Unknown, Provider, PCP - General 06/25/21 documented as of this encounter
--- OUTSIDE RECORDS SUMMARY | 2024-04-16 10:20 | XMS_ITS | Encounter Summary ---
Author Organization [facility] Address [address] [place] [address] Care Team Providers Care Ramp Jockey Name Role Phone Unknown, Provider Primary Care Provider Encounter Details Date Type Department Care Team (Late st Contact Info) Description 06/24/2020 Lab Requisition [facility] Pathology & Laboratory Medicine - [address] [address] Outr Resulting Lab, Provider Social History Tobacco [...] gonorrhoeae Result Negative Negative 06/26/2020 7:58 EST [facility] Chlamydia trachomatis Result Negative Negative 06/26/2020 7:58 EST [facility] Swab ENTIRE WALL OF CERVIX / Unknown 06/23/2020 14:20 EST 06/24/2020 18:52 EST Provider Outr Resulting Lab MICROBIOLOGY - GENERAL ORDERABLES [facility] [address] [place] [address] documented in this encounter Visit Diagnoses Not on filedocumented in this encounter Care Teams Ramp Jockey Relationship Specialty Start Date End Date Unknown, Provider, PCP - General 06/25/21 documented as of this encounter
--- OUTSIDE RECORDS SUMMARY | 2024-04-16 10:20 | XMS_ITS | Encounter Summary ---
Author Organization [facility] Address [address] [place] [address] Care Team Providers Care Roaster Supervisor Name Role Phone Unknown, Provider Primary Care Provider Encounter Details Date Type Department Care Team (Late st Contact Info) Description 04/01/2021 Lab Requisition [facility] Pathology & Laboratory Medicine - [facility] [address] [place] [address] Outr Resulting Lab, Provider Social History Tobacco [...] Outr Resulting Lab MICROBIOLOGY - GENERAL ORDERABLES [facility] [address] [place] [address] * COVID-19 TESTING (03/31/2021 16:24 EDT) COVID-19 rt-PCR Result Negative Negative 04/02/2021 11:36 EDT [facility] Comment: This test has [...] was performed using the magnus SARS-CoV-2 assay ([employer] on the Magnus 6800 System Performing Lab Magnus 6800 [facility] Lab 04/02/2021 11:36 EDT [facility] Swab 03/31/2021 16:2 4 EDT 04/01/2021 16:34 EDT Provider Outr Resulting Lab MICROBIOLOGY - GENERAL ORDERABLES [facility] [address] [place] [address] documented in this encounter Visit Diagnoses Not on filedocumented in this encounter Care Teams Roaster Supervisor Relationship Specialty Start Date End Date Unknown, Provider, PCP - General 06/25/21 documented as of this encounter
--- OUTSIDE RECORDS SUMMARY | 2024-04-16 10:20 | XMS_ITS | Encounter Summary ---
Author Organization [facility] Address [address] [place] [address] Care Team Providers Care Client Relationship Manager Name Role Phone Unknown, Provider Primary Care Provider [phone] Encounter Details Date Type Department Care Team (Late st Contact Info) Description 04/29/2022 Lab Requisition [facility] Pathology & Laboratory Medicine - [facility] [address] [place] [address] Outr Resulting Lab, Provider Social History Tobacco [...] 4.7 See Note mIU/mL 05/01/2022 9:06 EST [facility] Comment: NOTE: Female Reference [...] Resulting Lab CHEMISTRY & BLOOD GAS ORDERABLES [facility] [address] [place] [address] * FSH (04/29/2022 7:45 EDT) FSH 8.3 See Note mIU/mL 05/01/2022 9:04 EST [facility] Blood VENOUS BLOOD / Unknown 04/29/2022 7:45 EDT 04/30/2022 17:44 EST Narrative [facility] - 05/01/2022 9:04 EST [...] BLOOD GAS ORDERABLES Performing Organization Address [facility] de Phone Number [facility] [address] [place] [address] * PROLACTIN (04/29/2022 7:45 EDT) Prolactin 3.0 See Note ng/mL 05/01/2022 9:11 EST [facility] Comment: NOTE: Female Reference Ranges: PHYSIOLOGICAL STATUS ?REFERENCE RANGE ? Postmenopausal ?1.8 - 20.3 ng/mL ?9.7 - 208.5 ng/mL Non- ?2.8 - 29.2 ng/mL Blood VENOUS BLOOD / Unknown 04/29/2022 7:45 EDT 04/30/2022 17:44 EST Provider Outr Resulting Lab CHEMISTRY & BLOOD GAS ORDERABLES Performing Organization Address [facility] de Phone Number [facility] [address] [place] [address] * PROGESTERONE (04/29/2022 7:45 EDT) Progesterone 0.3 See Table ng/mL 04/30/2022 18:45 EST [facility] Comment: Female Reference Ranges: [...] Resulting Lab CHEMISTRY & BLOOD GAS ORDERABLES [facility] [address] [place] [address] * INSULIN (04/29/2022 7:45 EDT) Insulin 14.8 <29.0 uIU/mL 05/01/2022 9:51 EST [facility] Comment: Displayed Reference Range applies to fasting specimens only. Blood VENOUS BLOOD / Unknown 04/29/2022 7:45 EDT 04/30/2022 17:44 EST Provider Outr Resulting Lab CHEMISTRY & BLOOD GAS ORDERABLES Performing Organization Address [facility] Co de Phone Number [facility] [address] [place] [address] * ESTRADIOL, ADULTS (04/29/2022 7:45 EDT) Estradiol 28 See Note pg/mL 04/30/2022 18:45 EST [facility] Comment: NOTE: FEMALE REFERENCE [...] & BLOOD GAS ORDERABLES Performing Organization Address [facility] Co de Phone Number [facility] [address] [place] [address] documented in this encounter Visit Diagnoses Not on filedocumented in this encounter Care Teams Client Relationship Manager Relationship Specialty Start Date End Date Unknown, Provider, PCP - General 06/25/21 documented as of this encounter
--- OUTSIDE RECORDS SUMMARY | 2024-04-16 10:20 | XMS_ITS | Encounter Summary ---
Author Organization [facility] Address [address] [place] [address] Care Team Providers Care Street Engineer Name Role Phone Unknown, Provider Primary Care Provider [phone] Encounter Details Date Type Department Care Team (Late st Contact Info) Description 10/17/2019 Lab Requisition [facility] Pathology & Laboratory Medicine - [address] [address] Unknown, Provider, Social History Tobacco Use Types [...] Surface Ag Negative Negative 10/20/2019 10:55 EDT [facility] Blood VENOUS BLOOD / Unknown 10/17/2019 15:30 EDT 10/17/2019 21:37 EDT Provider Unknown CHEMISTRY & BLOOD GA S ORDERABLES [facility] [address] [place] [address] * HEPATITIS C AB W REFLEX TO HCV RNA BY PCR (10/17/2019 15:30 EDT) Hep C Antibody Negative Negative 10/20/2019 11:19 EDT [facility] Blood VENOUS BLOOD / Unknown 10/17/2019 15:30 EDT 10/17/2019 21:37 EDT Provider Unknown CHEMISTRY & BLOOD GA S ORDERABLES Performing Organization Address City/State/[facility] Co de Phone Number [facility] [address] [place] [address] documented in this encounter Visit Diagnoses Not on filedocumented in this encounter Care Teams Street Engineer Relationship Specialty Start Date End Date Unknown, Provider, PCP - General 06/25/21 documented as of this encounter
--- OUTSIDE RECORDS SUMMARY | 2024-04-16 10:20 | XMS_ITS | Encounter Summary ---
Author Organization [facility] Address [address] [place] [address] Care Team Providers Care Agency Operator Name Role Phone Unknown, Provider Primary Care Provider Encounter Details Date Type Department Care Team (Late st Contact Info) Description 07/04/2021 Lab Requisition [facility] Pathology & Laboratory Medicine - [facility] [address] [place] [address] Outr Resulting Lab, Provider Social History Tobacco [...] Priority Date/Time Associated Diagnosis Comments ZZCOVID-19 TEST [facility] LAB PCR Today 07/04/2021 9:30 EST COVID-19 TESTING Routine 07/04/2021 9:30 EST documented in this encounter Results * COVID-19 TEST [facility] PCR (07/04/2021 9:30 EST) Swab 07/04/2021 9:30 EST 07/04/2021 17:16 EST Provider Outr Resulting Lab MICROBIOLOGY - GENERAL ORDERABLES [facility] [address] [place] [address] * COVID-19 TESTING (07/04/2021 9:30 EST) COVID-19 rt-PCR Result Negative Negative 07/05/2021 11:11 EST [facility] Comment: This test has [...] was performed using the magnus SARS-CoV-2 assay ([employer] on the Magnus 6800 System Performing Lab Magnus 6800 [facility] Lab 07/05/2021 11:11 EST [facility] Swab 07/04/2021 9:30 EST 07/04/2021 17:16 EST Provider Outr Resulting Lab MICROBIOLOGY - GENERAL ORDERABLES [facility] [address] [place] [address] documented in this encounter Visit Diagnoses Not on filedocumented in this encounter Care Teams Agency Operator Relationship Specialty Start Date End Date Unknown, Provider, PCP - General 06/25/21 documented as of this encounter
--- OUTSIDE RECORDS SUMMARY | 2024-04-16 10:20 | XMS_ITS | Encounter Summary ---
Author Organization [facility] Address [address] [place] [address] Care Team Providers Care Lab Coordinator Name Role Phone Unknown, Provider Primary Care Provider Encounter Details Date Type Department Care Team (Late st Contact Info) Description 10/21/2019 Lab Requisition [facility] Pathology & Laboratory Medicine - [facility] [address] [place] [address] [place] [address] Encounter for other general examination Social History [...] System with Manual Evaluation 10/23/2019 12:38 EDT [facility] Specimen Adequacy Satisfactory for Evaluation - transformation zone component present 10/23/2019 12:38 EDT [facility] General Categorization Negative for intraepithelial lesion or malignancy 10/23/2019 12:38 T [facility] Attestation . 10/23/2019 12:38 [facility] at 1238 Clinical History NONE 10/23/19 12:38 EDT [facility] Scanned Images 10/23/2019 12:38 EDT [facility] Papanicolaou smear specimen (specimen) CERVIX UTERI STRUCTURE / Unknown 10/17/2019 13:01 EDT 10/21/2019 9:19 EDT Sandra Mary Patsy [facility] PATH[facility] MIKEL PAZ [facility] [address] [place] [address] documented in this encounter Visit Diagnoses Diagnosis Encounter for other general examination documented in this encounter Care Teams Lab Coordinator Relationship Specialty Start Date End Date Unknown, Provider, PCP - General 06/25/21 documented as of this encounter
--- OUTSIDE RECORDS SUMMARY | 2024-04-16 10:20 | XMS_ITS | Encounter Summary ---
Author Organization [facility] Address [address] [place] [address] Care Team Providers Care Blending Coordinator Name Role Phone Unknown, Provider Primary Care Provider [phone] Encounter Details Date Type Department Care Team (Late st Contact Info) Description 05/19/2020 Lab Requisition [facility] Pathology & Laboratory Medicine - [facility] [address] [place] [address] Outr Resulting Lab, Provider Social History Tobacco [...] on filedocumented in this encounter Care Teams Blending Coordinator Relationship Specialty Start Date End Date Unknown, Provider, PCP - General 06/25/21 documented as of this encounter
--- OUTSIDE RECORDS SUMMARY | 2024-04-16 10:20 | XMS_ITS | Encounter Summary ---
Author Organization [facility] Address [address] [place] [address] Care Team Providers Care Ski Patrol Name Role Phone Unknown, Provider Primary Care Provider [phone] Encounter Details Date Type Department Care Team (Late st Contact Info) Description 10/17/2019 Lab Requisition [facility] Pathology & Laboratory Medicine - [address] [address] Unknown, ProviderMD Social History Tobacco Use Types [...] gonorrhoeae Result Negative Negative 10/20/2019 15:28 EDT [facility] Chlamydia trachomatis Result Negative Negative 10/20/2019 15:28 EDT [facility] Swab ENTIRE WALL OF CERVIX / Unknown 10/17/2019 15:30 EDT 10/17/2019 22:38 EDT Provider Unknown MICROBIOLOGY - GENER AL ORDERABLES [facility] [address] [place] [address] documented in this encounter Visit Diagnoses Not on filedocumented in this encounter Care Teams Ski Patrol Relationship Specialty Start Date End Date Unknown, Provider, PCP - General 06/25/21 documented as of this encounter
--- OUTSIDE RECORDS SUMMARY | 2024-04-16 10:20 | XMS_ITS | Encounter Summary ---
Author Organization [facility] Address [address] [place] [address] Care Team Providers Care Geothermal Production Manager Name Role Phone Unknown, Provider Primary Care Provider [phone] Encounter Details Date Type Department Care Team (Late st Contact Info) Description 10/17/2019 Lab Requisition [facility] Pathology & Laboratory Medicine - [facility] [address] [place] [address] Unknown, Provider, Social History Tobacco Use Types [...] Syphilis Serology Negative Negative 10/21/2019 12:26 EDT [facility] Blood VENOUS BLOOD / Unknown 10/17/2019 13:00 EDT 10/17/2019 21:37 EDT Provider Unknown IMMUNOLOGY AND SEROL OGY ORDERABLES [facility] [address] [place] [address] * VARICELLA IGG ANTIBODY (10/17/2019 13:00 EDT) Varicella IgG Ab Positive See Note 10/21/2019 12:17 EDT [facility] Comment:Presence of detectab le Varicella Zoster virus IgG antibodies. Blood VENOUS BLOOD / Unknown 10/17/2019 13:00 EDT 10/17/2019 21:37 EDT Provider Unknown IMMUNOLOGY AND SEROL OGY ORDERABLES Performing Organization Address City/[facility] Co de Phone Number [facility] [address] [place] [address] * RUBELLA IGG ANTIBODY (10/17/2019 13:00 EDT) Rubella IgG Ab Positive See Note 10/21/2019 12:26 EDT [facility] Comment:Positive for IgG ant ibodies to Rubella virus. Blood VENOUS BLOOD / Unknown 10/17/2019 13:00 EDT 10/17/2019 21:37 EDT Provider Unknown CHEMISTRY & BLOOD GA S ORDERABLES Performing Organization Address [facility] Co de Phone Number [facility] [address] [place] [address] documented in this encounter Visit Diagnoses Not on filedocumented in this encounter Care Teams Geothermal Production Manager Relationship Specialty Start Date End Date Unknown, Provider, PCP - General 06/25/21 documented as of this encounter
[2024-04-16 10:40] LABS: Glucose,1 Hr (Glucola) 109 mg/dL (80-140)
== END 2024-04-16 10:16 | disposition home or self-care (01) ==
LOC: BCD 10:18
PROVIDERS: Visit Provider Advanced Practice Midwife
DX: O99.211 Obesity complicating pregnancy, first trimester (principal); Z3A.12 12 weeks gestation of pregnancy
CPT/HCPCS: 82950

== ENCOUNTER 2024-05-15 15:04 | Outpatient (REF) | payer OTHER, SELFPAY ==
[2024-05-16 12:41] LABS: Chlamydia Result Negative (Negative); GC Result Negative (Negative)
== END 2024-05-15 15:05 | disposition home or self-care (01) ==
LOC: LBN 15:04
PROVIDERS: Visit Provider Advanced Practice Midwife
DX: Z34.91 Encounter for supervision of normal pregnancy, unspecified, first trimester (principal)
CPT/HCPCS: 87491; 87591; 87086

== ENCOUNTER 2024-07-30 00:58 | Outpatient (CLI) | payer OTHER, SELFPAY ==
--- OUTSIDE RECORDS SUMMARY | 2024-07-30 01:32 | XMS_ITS | Encounter Summary ---
Author Organization [facility] Address [address] [place] [address] Care Team Providers Care Gas Compressor Turbine Operator Name Role Phone Unknown, Provider Primary Care Provider Unava ilable Encounter Details Date Type Department Care Team (Late st Contact Info) Description 05/15/2024 Lab Requisition [facility] Pathology & Laboratory Medicine - [address] [address] Outr Resulting Lab, Provider Social History Tobacco Use Types Packs/Day Years Used Date Smoking Tobacco: Never Assessed Interpersonal Safety Answer Date Record ed Physically Hurt Never 05/18/2020 Verbally Threaten Not on file 05/18/2020 Comments Unknown Sex and Gender Information Value Date Recorded Sex Assigned at Not on file Legal Sex Female 17:10 EDT Gender Identity Not on file Sexual Orientation Not on file documented as of this encounter Plan of Treatment Not on file documented as of this encounter Procedures Procedure Name Priority Date/Time Associated Diagnosis Comments CHLAMYDIA/N. GONORRHOEAE AMPLIFIED NUCLEIC ACID Routine 05/15/2024 13:30 EST documented in this encounter Results * CHLAMYDIA/N. GONORRHOEAE AMPLIFIED NUCLEIC ACID (05/15/2024 13:30 EST) Neisseria gonorrhoeae Result Negative Negative 05/16/2024 12:35 EST [facility] Chlamydia trachomatis Result Negative Negative 05/16/2024 12:35 EST [facility] Swab VAGINAL STRUCTURE / Unknown 05/15/2024 13:30 EST 05/15/2024 22:10 EST us Provider Outr Resulting Lab MICROBIOLOGY - GENER AL ORDERABLES Final Result [facility] [address] [place] [address] documented in this encounter Visit Diagnoses Not on filedocumented in this encounter Care Teams Gas Compressor Turbine Operator Relationship Specialty Start Date End Date Unknown, Provider, PCP - General 06/25/21 documented as of this encounter
--- OUTSIDE RECORDS SUMMARY | 2024-07-30 01:32 | XMS_ITS | Clinical Summary ---
Author Organization [facility] Address [address] [place] [address] Care Team Providers Care Circular Ripsaw Operator Name Role Phone Unknown, Provider Primary Care Provider Unava ilable Encounters Date Type Department Care Team Description 05/15/2024 Lab Requisition [facility] Pathology & Laboratory Medicine - [address] [address] Outr Resulting Lab, Provider from Last 3 [...] AMPLIFIED NUCLEIC ACID Routine 05/15/2024 13:30 EST HEPATITIS C AB W REFLEX TO HCV RNA BY PCR Routine 04/04/2024 16:25 EDT from Last 3 Months or Most Recently Relevant to Health Maintenance Results * CHLAMYDIA/N. GONORRHOEAE AMPLIFIED NUCLEIC ACID (05/15/2024 13:30 EST) Neisseria gonorrhoeae Result Negative Negative 05/16/2024 12:35 EST [facility] Chlamydia trachomatis Result Negative Negative 05/16/2024 12:35 EST [facility] Swab VAGINAL STRUCTURE / Unknown 05/15/2024 13:30 EST 05/15/2024 22:10 EST us Provider Outr Resulting Lab MICROBIOLOGY - GENER AL ORDERABLES Final Result Performing Organization Address City/[facility]/ZIP Co de Phone Number [facility] [address] [place], [place] [id number] * HEPATITIS C AB W REFLEX TO HCV RNA BY PCR (04/04/2024 16:25 EDT) Hep C Antibody Negative Negative 04/07/2024 12:34 EDT [facility] Blood VENOUS BLOOD / Unknown 04/04/2024 16:25 EDT 04/05/2024 22:07 EDT us Provider Outr Resulting Lab CHEMISTRY & BLOOD GA S ORDERABLES Final Result Performing Organization Address City/[facility] Co de Phone Number [facility] [address] [place], [place] [phone] from Last 3 Months or Most Recently Relevant to Health Maintenance Insurance [employer] Care Teams Circular Ripsaw Operator Relationship Specialty Start Date End Date Unknown, Provider, PCP - General 06/25/21
--- OUTSIDE RECORDS SUMMARY | 2024-07-30 01:32 | XMS_ITS | Encounter Summary ---
Author Organization [facility] Address [address] [place] [address] Care Team Providers Care Optical Glass Silverer Name Role Phone Unknown, Provider Primary Care Provider Unava ilable Encounter Details Date Type Department Care Team (Late st Contact Info) Description 10/17/2019 Lab Requisition [facility] Pathology & Laboratory Medicine - [address] [address] Unknown, Provider, Social History Tobacco Use Types Packs/Day Years Used Date Smoking Tobacco: Never Assessed Comments Unknown Sex and Gender Information Value [...] Surface Ag Negative Negative 10/20/2019 10:55 EDT [facility] Blood VENOUS BLOOD / Unknown 10/17/2019 15:30 EDT 10/17/2019 21:37 EDT us Provider Unknown CHEMISTRY & BLOOD GAS ORDERA BLES Final Result [facility] [address] [place] [address] * HEPATITIS C AB W REFLEX TO HCV RNA BY PCR (10/17/2019 15:30 EDT) Hep C Antibody Negative Negative 10/20/2019 11:19 EDT [facility] Blood VENOUS BLOOD / Unknown 10/17/2019 15:30 EDT 10/17/2019 21:37 EDT us Provider Unknown CHEMISTRY & BLOOD GAS ORDERA BLES Final Result [facility] [address] [place] [address] documented in this encounter Visit Diagnoses Not on filedocumented in this encounter Care Teams Optical Glass Silverer Relationship Specialty Start Date End Date Unknown, Provider, PCP - General 06/25/21 documented as of this encounter
--- OUTSIDE RECORDS SUMMARY | 2024-07-30 01:32 | XMS_ITS | Encounter Summary ---
Author Organization [facility] Address [address] [place] [address] Care Team Providers Care Strategic Buyer Name Role Phone Unknown, Provider Primary Care Provider Unava ilable Encounter Details Date Type Department Care Team (Late st Contact Info) Description 06/26/[address] [facility] Pathology & Laboratory Medicine - [facility] [address] [place] [address] Outr Resulting Lab, Provider Social History Tobacco [...] Ab, Total Negative Negative 06/29/2022 10:30 EST [facility] Blood VENOUS BLOOD / Unknown 06/26/2022 13:05 EST 06/27/2022 17:10 EST us Provider Outr Resulting Lab CHEMISTRY & BLOOD GA S ORDERABLES Final Result [facility] [address] [place] [address] * HEPATITIS B SURFACE ANTIGEN (06/26/2022 13:05 EST) Hep B Surface Ag Negative Negative 06/28/2022 8:53 EST [facility] Blood VENOUS BLOOD / Unknown 06/26/2022 13:05 EST 06/27/2022 17:10 EST us Provider Outr Resulting Lab CHEMISTRY & BLOOD GA S ORDERABLES Final Result Performing Organization Address [facility]/ZIP Co de Phone Number [facility] [address] [place] [address] * HEPATITIS C AB W REFLEX TO HCV RNA BY PCR (06/26/2022 13:05 EST) Hep C Antibody Negative Negative 06/28/2022 10:42 EST [facility] Blood VENOUS BLOOD / Unknown 06/26/2022 13:05 EST 06/27/2022 17:10 EST us Provider Outr Resulting Lab CHEMISTRY & BLOOD GA S ORDERABLES Final Result Performing Organization Address City/[facility]/ZIP Co de Phone Number [facility] [address] [place] [address] documented in this encounter Visit Diagnoses Not on filedocumented in this encounter Care Teams Strategic Buyer Relationship Specialty Start Date End Date Unknown, Provider, PCP - General 06/25/21 documented as of this encounter
--- OUTSIDE RECORDS SUMMARY | 2024-07-30 01:32 | XMS_ITS | Encounter Summary ---
Author Organization [facility] Address [address] [place] [address] Care Team Providers Care Scalp Specialist Name Role Phone Unknown, Provider Primary Care Provider Unava ilable Encounter Details Date Type Department Care Team (Late st Contact Info) Description 10/17/2019 Lab Requisition [facility] Pathology & Laboratory Medicine - [facility] [address] [place] [address] Unknown, Provider, Social History Tobacco Use Types [...] Name Priority Date/Time Associated Diagnosis Comments HOLD RUST Today 10/17/2019 15:30 EDT HOLD RUST Today 10/17/2019 15:30 EDT HIV 1/2 ANTIGEN AND ANTIBODY, 4TH GENERATION Today 10/17/2019 15:30 EDT documented in this encounter Results * HOLD RUST (10/17/2019 15:30 EDT) Hold Hold 10/17/2019 22:30 EDT [facility] Blood VENOUS BLOOD / Unknown 10/17/2019 15:30 EDT 10/17/2019 21:27 EDT us Provider Unknown LAB INFO SERVICE AND SUPPORT & PHONE RESULT Final Result [facility] [address] [place] [address] * HOLD RUST (10/17/2019 15:30 EDT) Hold Hold 10/17/2019 22:30 EDT [facility] Blood VENOUS BLOOD / Unknown 10/17/2019 15:30 EDT 10/17/2019 21:27 EDT us Provider Unknown LAB INFO SERVICE AND SUPPORT & PHONE RESULT Final Result Performing Organization Address [facility] Co de Phone Number [facility] [address] [place] [address] * HIV 1/2 ANTIGEN AND ANTIBODY, 4TH GENERATION (10/17/2019 15:30 EDT) HIV 1 and 2 Antibody/p24 Antigen, 4th Generation Negative Negative 10/20/2019 11:10 EDT [facility] Comment: If acute HIV-1 infection is suspected in a high risk ??patient, submit plasma specimen for HIV-1 RNA quantitation test. Fourth Generation assay performed on the Siemens Centaur. Blood VENOUS BLOOD / Unknown 10/17/2019 15:30 EDT 10/17/2019 21:26 EDT us Provider Unknown IMMUNOLOGY AND SEROLOGY MIKEL PAZ Final Result Performing Organization Address [facility] Co de Phone Number [facility] [address] [place] [address] documented in this encounter Visit Diagnoses Not on filedocumented in this encounter Care Teams Scalp Specialist Relationship Specialty Start Date End Date Unknown, Provider, PCP - General 06/25/21 documented as of this encounter
--- OUTSIDE RECORDS SUMMARY | 2024-07-30 01:32 | XMS_ITS | Clinical Summary ---
Author Organization [facility] [place] [address] Care Team Providers Care Diesel Dragline Operator Name Role Phone Unknown Primary Care Provider Unavailabl e Allergies Active Allergy Reactions Criticality Noted Date [...] Smear 05/17/2019 05/17/2016 Covid-19 Vaccine (1 - 2023- season) 2024 Influenza (Flu) vaccine (1 o f 1 - Influenza standard series) 02/24/2024 Procedures Procedure Name Priority Date/Time Associated Diagnosis Comments CHILD CENTER ASSISTANT CYTOLOGY FINAL REPORT Routine 05/17/2016 12:00 PM EST from Last 3 Months or Most Recently Relevant to Health Maintenance Results * Switcher Cytology Final Report (05/17/2016 12:00 PM EST) Switcher Cytology Final Report [id number] ?Location: [facility] The signing pathologist has (i) examined the relevant preparation(s) for the specimen(s) and (ii) rendered or confirmed the diagnosis(es). . ? Switcher Final DIAGNOSIS Normal Negative for Intraepithelial Lesion or Malignancy (NILM). For consensus guidelines for the management of cervical cancer screening test results, please see: ?? http://www.asccp.o rg/guidelines . Electronically signed by: ??JAMIN Gutiérrez(ASCP), Charisse Suh Verified: ??05/29/2016 ?Bristle Machine Operator DISCUSSION Fungal organisms morphologically consistent with Eryn [...] Clinical Genomics and Advanced Technology (CGAT) [place] [facility] ? - Bj Choi, PhD, [facility], Director-[facility] STATEMENT OF ADEQUACY Specimen submitted [...] Pap Specimen Source: ?Cervical Endocervical LBP LMP: ?04/24/16 Hormones?: ?Yes Hysterectomy?: ?No ?: ?No ?: ?No I.U.D.?: ?No Pelvic Radiation: ? No Prior CHILD CENTER ASSISTANT Therapy?: ? No Hist Abnl Pap/Biopsy?: ??No Hist of HPV Vaccine?: ?? No . CLINICAL INFORMATION Hist of Smoking?: ? No Hist of JUAQUIN exposure?: ??No Clinical Data, Significant Therapy and Clinical Impression ?? : ?? _ Referring Identifier: ??[id number] This Pap Test has been evaluated with the assistance of the [employer] Pap Test Imaging System. Note: The Pap test is a screening test for cervical cancer with an inherent false-negative rate dependent upon several variables. ??For further information please contact the [facility]. Reference: ??Ángela VELASQUEZ. ??Fire Department Marine Engineer of Pap Smear Results. ??In: ??Alvino BS, Stanislaw HH, ed. ??The Pap Smear. ??[place]: ??Sin, 2002: ??71-77. [facility] 05/17/2016 12:0 0 PM EST Narrative Resulting Agency Comment Spec In Lab / WKS Dominga Can CLERICAL OFFICE PATHOLOGY/CYTOLOGY O RDERABLES [facility] [place] [address] from Last 3 Months or Most Recently Relevant to Health Maintenance Care Teams Diesel Dragline Operator Relationship Specialty Start Date End Date Unknown None PCP - General 05/21/24
--- OUTSIDE RECORDS SUMMARY | 2024-07-30 01:32 | XMS_ITS | Encounter Summary ---
Author Organization [facility] Address [address] [place] [address] Care Team Providers Care Enterprise Architect Manager Name Role Phone Unknown, Provider Primary Care Provider Unava ilable Encounter Details Date Type Department Care Team (Late st Contact Info) Description 10/17/2019 Lab Requisition [facility] Pathology & Laboratory Medicine - [facility] [address] [place] [address] Unknown, Provider, Social History Tobacco Use Types [...] Syphilis Serology Negative Negative 10/21/2019 12:26 EDT [facility] Blood VENOUS BLOOD / Unknown 10/17/2019 13:00 EDT 10/17/2019 21:37 EDT us Provider Unknown IMMUNOLOGY AND SEROLOGY MIKEL PAZ Final Result [facility] [address] [place] [address] * VARICELLA IGG ANTIBODY (10/17/2019 13:00 EDT) Varicella IgG Ab Positive See Note 10/21/2019 12:17 EDT [facility] Comment:Presence of detectab le Varicella Zoster virus IgG antibodies. Blood VENOUS BLOOD / Unknown 10/17/2019 13:00 EDT 10/17/2019 21:37 EDT us Provider Unknown IMMUNOLOGY AND SEROLOGY ORDE RABLES Final Result Performing Organization Address [facility] Co de Phone Number [facility] [address] [place] [address] * RUBELLA IGG ANTIBODY (10/17/2019 13:00 EDT) Rubella IgG Ab Positive See Note 10/21/2019 12:26 EDT [facility] Comment:Positive for IgG ant ibodies to Rubella virus. Blood VENOUS BLOOD / Unknown 10/17/2019 13:00 EDT 10/17/2019 21:37 EDT us Provider Unknown CHEMISTRY & BLOOD GAS ORDERA BLES Final Result Performing Organization Address [facility]/ZIP Co de Phone Number [facility] [address] [place] [address] documented in this encounter Visit Diagnoses Not on filedocumented in this encounter Care Teams Enterprise Architect Manager Relationship Specialty Start Date End Date Unknown, Provider, PCP - General 06/25/21 documented as of this encounter
--- OUTSIDE RECORDS SUMMARY | 2024-07-30 01:32 | XMS_ITS | Encounter Summary ---
Author Organization [facility] Address [address] [place] [address] Care Team Providers Care Nail Assembly Machine Operator Name Role Phone Unknown, Provider Primary Care Provider Unava ilable Encounter Details Date Type Department Care Team (Late st Contact Info) Description 06/26/2022 Lab Requisition [facility] Pathology & Laboratory Medicine - [facility] [address] [place] [address] Outr Resulting Lab, Provider Social History Tobacco [...] gonorrhoeae Result Negative Negative 06/28/2022 13:19 EST [facility] Chlamydia trachomatis Result Negative Negative 06/28/2022 13:19 EST [facility] Urine URINE / Unknown 06/26/2022 1 1:25 EST 06/27/2022 21:03 EST Narrative [facility] - 06/28/2022 13:19 EST A first catch urine specimen is acceptable for detection of Gonorrhea and Chlamydia, but might detect up to 10% fewer infections when compared with vaginal and endocervical swab samples. us Provider Outr Resulting Lab MICROBIOLOGY - GENER AL ORDERABLES Final Result [facility] [address] [place] [address] documented in this encounter Visit Diagnoses Not on filedocumented in this encounter Care Teams Nail Assembly Machine Operator Relationship Specialty Start Date End Date Unknown, Provider, PCP - General 06/25/21 documented as of this encounter
--- OUTSIDE RECORDS SUMMARY | 2024-07-30 01:32 | XMS_ITS | Encounter Summary ---
Author Organization [facility] Address [address] [place] [address] Care Team Providers Care Instantizer Operator Name Role Phone Unknown, Provider Primary Care Provider Unava ilable Encounter Details Date Type Department Care Team (Late st Contact Info) Description 06/22/2021 Lab Requisition [facility] Pathology & Laboratory Medicine - [address] [address] Outr Resulting Lab, Provider Social History Tobacco [...] Swab 06/22/2021 8:22 EST 06/22/2021 15:33 EST us Provider Outr Resulting Lab MICROBIOLOGY - GENER AL ORDERABLES Final Result [facility] [address] [place] [address] * COVID-19 TESTING (06/22/2021 8:22 EST) COVID-19 rt-PCR Result Negative Negative 06/22/2021 20:42 EST [facility] Comment: This test has not [...] history, and epidemiological information. Performed on the VaultLogixher Fusion instrument Performing Lab [facility] 06/22/2021 20:42 EST [facility] Swab 06/22/2021 8:22 EST 06/22/2021 15:33 EST us Provider Outr Resulting Lab MICROBIOLOGY - GENER AL ORDERABLES Final Result [facility] [address] [place] [address] documented in this encounter Visit Diagnoses Not on filedocumented in this encounter Care Teams Instantizer Operator Relationship Specialty Start Date End Date Unknown, Provider, PCP - General 06/25/21 documented as of this encounter
--- OUTSIDE RECORDS SUMMARY | 2024-07-30 01:32 | XMS_ITS | Encounter Summary ---
Author Organization [facility] [place] [address] Care Team Providers Care Rv Body Mechanic Name Role Phone Keith Campo DO Primary Care Provider [phone] Encounter Details Date Type Department Care Team (Latest Contact Info) Description 05/17/2016 9:27 PM EST - 05/17/2016 11:59 PM EST [place] [id number] Discharge Disposition: Home Social History Tobacco Use [...] Comments HPV Routine 05/17/2016 12:00 PM EST MANAGER TEST CYTOLOGY INTERPRETATION Routine 05/17/2016 12:00 PM EST MANAGER TEST CYTOLOGY FINAL REPORT Routine 05/17/2016 12:00 PM EST documented in this encounter Results * Commercial Sheet Metal Foreman Cytology Final Report (05/17/2016 12:00 PM EST) Commercial Sheet Metal Foreman Cytology Final Report [id number] ?Location: [facility] The signing pathologist has (i) examined the relevant preparation(s) for the specimen(s) and (ii) rendered or confirmed the diagnosis(es). . ? Commercial Sheet Metal Foreman Final DIAGNOSIS Normal Negative for Intraepithelial Lesion or Malignancy (NILM). For consensus guidelines for the management of cervical cancer screening test results, please see: ?? http://www.asccp.o rg/guidelines . Electronically signed by: ??JAMIN Gutiérrez(ASCP), Charisse Suh Verified: ??05/29/2016 ?Recreation Attendant DISCUSSION Fungal organisms morphologically consistent with Eryn [...] [place]. ? - Bj Choi, PhD, [facility], Director-[facility] STATEMENT OF ADEQUACY Specimen [...] I.U.D.?: ?No Pelvic Radiation: ? No Prior MANAGER TEST Therapy?: ? No Hist Abnl Pap/Biopsy?: ??No Hist of HPV Vaccine?: ?? No . CLINICAL INFORMATION Hist of Smoking?: ? No Hist of JUAQUIN exposure?: ??No Clinical Data, Significant Therapy and Clinical Impression ?? : ?? _ Referring Identifier: ??[id number] This Pap Test has been evaluated with the assistance of the [employer] Pap Test Imaging System. Note: The Pap test is a screening test for cervical cancer with an inherent false-negative rate dependent upon several variables. ??For further information please contact the [facility]. Reference: ??Ángela VELASQUEZ. ??Clay Structure Builder And Servicer of Pap Smear Results. ??In: ??Alvino BS, Stanislaw HH, ed. ??The Pap Smear. ??[place]: ??Sin, 2002: ??71-77. [facility] 05/17/2016 12:0 0 PM EST Narrative Resulting Agency Comment Spec In Lab / WKS Dominga Can APRN PATHOLOGY/CYTOLOGY O RDERABLES [facility] [place] [address] * MANAGER TEST Cytology Interpretation (05/17/2016 12:00 PM EST) Commercial Sheet Metal Foreman Cytology Interpretation NILM [facility] Comment:Commercial Sheet Metal Foreman Cytology Final R eport Commercial Sheet Metal Foreman Cytology Comment Present [facility] Endocervical Component Not Present [facility] AP Specimen 05/17/2016 12:0 0 PM EST 05/29/2016 8:14 AM EST Narrative Resulting Agency Comment Spec In Lab / WKS Dominga Can QUALITY ANALYST PATHOLOGY/CYTOLOGY O RDERABLES Performing Organization Address [facility] Co de Phone Number [facility] [place] [address] * HPV (05/17/2016 12:00 PM EST) HPV16 NEGATIVE NEGATIVE [facility] HPV 18 NEGATIVE NEGATIVE [facility] HPV Other HR NEGATIVE NEGATIVE [facility] HPV Interpretation See Comment [facility] Comment: NEGATIVE for [...] Spec In Lab / WKS Dominga Can QUALITY ANALYST PATHOLOGY/CYTOLOGY O RDERABLES Performing Organization Address [facility] Co de Phone Number [facility] [place] [address] documented in this encounter Visit Diagnoses Not on filedocumented in this encounter Care Teams Rv Body Mechanic Relationship Specialty Start Date End Date Keith Campo DO [address] [place] [address] PCP - General 05/17/10 05/20/24 documented as of this encounter
--- OUTSIDE RECORDS SUMMARY | 2024-07-30 01:32 | XMS_ITS | Encounter Summary ---
Author Organization Health system Address [address] [place] [address] Care Team Providers Care American Indian Studies Professor Name Role Phone Unknown, Provider Primary Care Provider Unava ilable Encounter Details Date Type Department Care Team (Late st Contact Info) Description 05/19/2020 Lab Requisition [facility] Pathology & Laboratory Medicine - [facility] [address] [place] [address] Outr Resulting Lab, Provider Social History Tobacco [...] on filedocumented in this encounter Care Teams American Indian Studies Professor Relationship Specialty Start Date End Date Unknown, Provider, PCP - General 06/25/21 documented as of this encounter
--- OUTSIDE RECORDS SUMMARY | 2024-07-30 01:32 | XMS_ITS | Encounter Summary ---
Author Organization [facility] Address [address] [place] [address] Care Team Providers Care Assistant To The President Name Role Phone Unknown, Provider Primary Care Provider Elmo ilable Encounter Details Date Type Department Care Team (Late st Contact Info) Description 04/05/2024 Lab Requisition [facility] Pathology & Laboratory Medicine - [facility] [address] [place] [address] Outr Resulting Lab, Provider Social History Tobacco [...] 4th Generation Negative Negative 04/07/2024 12:16 EDT [facility] Comment:If acute HIV-1 infec tion is suspected in a high risk patient, submit plasma specimen for HIV-1 RNA quantitation test. Blood VENOUS BLOOD / Unknown 04/04/2024 16:25 EDT 04/05/2024 22:07 EDT Narrative [facility] - 04/07/2024 12:16 EDT Fourth Generation assay performed on the Siemens Poundworldaur XPT. us Provider Outr Resulting Lab IMMUNOLOGY AND SEROL OGY ORDERABLES Final Result [facility] [address] [place] [address] documented in this encounter Visit Diagnoses Not on filedocumented in this encounter Care Teams Assistant To The President Relationship Specialty Start Date End Date Unknown, Provider, PCP - General 06/25/21 documented as of this encounter
--- OUTSIDE RECORDS SUMMARY | 2024-07-30 01:32 | XMS_ITS | Encounter Summary ---
Author Organization [facility] Address [address] [place] [address] Care Team Providers Care Pedodontist Name Role Phone Unknown, Provider Primary Care Provider Unava ilable Encounter Details Date Type Department Care Team (Late st Contact Info) Description 07/04/2021 Lab Requisition [facility] Pathology & Laboratory Medicine - [facility] [address] [place] [address] Outr Resulting Lab, Provider Social History Tobacco [...] Comments ZZCOVID-19 TEST [facility] LAB PCR Today 07/04/2021 9:30 EST COVID-19 TESTING Routine 07/04/2021 9:30 EST documented in this encounter Results * COVID-19 TEST [facility] LAB PCR (07/04/2021 9:30 EST) Swab 07/04/2021 9:30 EST 07/04/2021 17:16 EST us Provider Outr Resulting Lab MICROBIOLOGY - GENER AL ORDERABLES Final Result [facility] [address] [place] [address] * COVID-19 TESTING (07/04/2021 9:30 EST) COVID-19 rt-PCR Result Negative Negative 07/05/2021 11:11 EST [facility] Comment: This test has [...] was performed using the magnus SARS-CoV-2 assay ([employer] on the Magnus 6800 System Performing Lab Magnus 6800 [facility] Lab 07/05/2021 11:11 EST [facility] Swab 07/04/2021 9:30 EST 07/04/2021 17:16 EST us Provider Outr Resulting Lab MICROBIOLOGY - GENER AL ORDERABLES Final Result [facility] [address] [place] [address] documented in this encounter Visit Diagnoses Not on filedocumented in this encounter Care Teams Pedodontist Relationship Specialty Start Date End Date Unknown, Provider, PCP - General 06/25/21 documented as of this encounter
--- OUTSIDE RECORDS SUMMARY | 2024-07-30 01:32 | XMS_ITS | Encounter Summary ---
Author [facility] [place] [address] Care Team Providers Care Roulette Dealer Name Role Phone Keith Campo DO Primary Care Provider [phone] Encounter Details Date Type Department Care Team (Late st Contact Info) Description 07/19/2010 10:00 AM EST Office Visit Dermatology [address] [facility] [address] [place], [place] [id number] Claudio Grey MD [address] [facility] [place] [address] Social History Tobacco Use Types Packs/Day Years Used Date Smoking Tobacco: Never Assessed Sex and Gender Information Value Date Recorded Sex Assigned at Not on file Gender Identity Not on file Sexual Orientation Not on file documented as of this encounter Plan of Treatment Not on file documented as of this encounter Visit Diagnoses Not on filedocumented in this encounter Care Teams Roulette Dealer Relationship Specialty Start Date End Date Keith Campo DO [address] [place] [address] PCP - General 05/17/10 05/20/24 documented as of this encounter
--- OUTSIDE RECORDS SUMMARY | 2024-07-30 01:32 | XMS_ITS | Encounter Summary ---
Author Organization [facility] Address [address] [place] [address] Care Team Providers Care Home Energy Consultant Supervisor Name Role Phone Unknown, Provider Primary Care Provider Unava ilable Encounter Details Date Type Department Care Team (Late st Contact Info) Description 06/24/2020 Lab Requisition [facility] Pathology & Laboratory Medicine - [facility] [address] [place] [address] Outr Resulting Lab, Provider Social History Tobacco [...] gonorrhoeae Result Negative Negative 06/26/2020 7:58 EST [facility] Chlamydia trachomatis Result Negative Negative 06/26/2020 7:58 EST [facility] Swab ENTIRE WALL OF CERVIX / Unknown 06/23/2020 14:20 EST 06/24/2020 18:52 EST us Provider Outr Resulting Lab MICROBIOLOGY - GENER AL ORDERABLES Final Result [facility] [address] [place] [address] documented in this encounter Visit Diagnoses Not on filedocumented in this encounter Care Teams Home Energy Consultant Supervisor Relationship Specialty Start Date End Date Unknown, Provider, PCP - General 06/25/21 documented as of this encounter
--- OUTSIDE RECORDS SUMMARY | 2024-07-30 01:32 | XMS_ITS | Encounter Summary ---
Author Organization [facility] Address [address] [place] [address] Care Team Providers Care Eligibility Consultant Name Role Phone Unknown, Provider Primary Care Provider Unava ilable Encounter Details Date Type Department Care Team (Late st Contact Info) Description 10/21/2019 Lab Requisition [facility] Pathology & Laboratory Medicine - [facility] [address] [place] [address] [place] [address] Encounter for other general examination Social History [...] Imaging System with Manual Evaluation 10/23/2019 12:38 T [facility] Specimen Adequacy Satisfactory for Evaluation - transformation zone component present 10/23/2019 12:38 T [facility] General Categorization Negative for intraepithelial lesion or malignancy 10/23/2019 12:38 T [facility] Attestation . 10/23/2019 12:38 T [facility] at 1238 Clinical History NONE 10/23/19 20 12:38 EDT [facility] Scanned Images 10/23/2019 12:38 EDT [facility] Papanicolaou smear specimen (specimen) CERVIX UTERI STRUCTURE / Unknown 10/17/2019 13:01 EDT 10/21/2019 9:19 EDT Sandra Garner [facility] PATHOLOGY ORDERABLES F inal Result [facility] [address] [place] [address] documented in this encounter Visit Diagnoses Diagnosis Encounter for other general examination documented in this encounter Care Teams Eligibility Consultant Relationship Specialty Start Date End Date Unknown, Provider, PCP - General 06/25/21 documented as of this encounter
--- OUTSIDE RECORDS SUMMARY | 2024-07-30 01:32 | XMS_ITS | Encounter Summary ---
Author Organization [facility] Address [address] [place] [address] Care Team Providers Care Blue Leather Sorter Name Role Phone Unknown, Provider Primary Care Provider Unava ilable Encounter Details Date Type Department Care Team (Late st Contact Info) Description 04/05/2024 Lab Requisition [facility] Pathology & Laboratory Medicine - [facility] [address] [place] [address] Outr Resulting Lab, Provider Social History Tobacco [...] Ab Positive See Note 04/07/2024 10:21 EDT [facility] Comment:Presence of detectab le Varicella Zoster virus IgG antibodies. Blood VENOUS BLOOD / Unknown 04/04/2024 16:25 EDT 04/05/2024 22:07 EDT us Provider Outr Resulting Lab IMMUNOLOGY AND SEROL OGY ORDERABLES Final Result [facility] [address] [place] [address] * RUBELLA IGG ANTIBODY (04/04/2024 16:25 EDT) Rubella IgG Ab Positive See Note 04/07/2024 10:23 EDT [facility] Comment:Positive for IgG ant ibodies to Rubella virus. Blood VENOUS BLOOD / Unknown 04/04/2024 16:25 EDT 04/05/2024 22:07 EDT us Provider Outr Resulting Lab CHEMISTRY & BLOOD GA S ORDERABLES Final Result [facility] [address] [place] [address] documented in this encounter Visit Diagnoses Not on filedocumented in this encounter Care Teams Blue Leather Sorter Relationship Specialty Start Date End Date Unknown, Provider, PCP - General 06/25/21 documented as of this encounter
--- OUTSIDE RECORDS SUMMARY | 2024-07-30 01:32 | XMS_ITS | Encounter Summary ---
Author Organization [facility] Address [address] [place] [address] Care Team Providers Care Stitch Separator Name Role Phone Unknown, Provider Primary Care Provider Elmo ilmaria guadalupe Encounter Details Date Type Department Care Team (Late st Contact Info) Description 06/26/2022 Lab Requisition [facility] Pathology & Laboratory Medicine - [facility] [address] [place] [address] Outr Resulting Lab, Provider Recurrent loss Social [...] Rashid Tsai MD PhD 06/29/2022 23:12 EST [facility] Blood VENOUS BLOOD / Unknown 06/26/2022 13:05 EST 06/27/2022 17:11 EST us Provider Outr Resulting Lab HEMATOLOGY & PF4 ORD ERABLES Final Result Performing Organization Address [facility] Co de Phone Number [facility] [address] [place] [address] * SILICA CONFIRMATION TEST (06/26/2022 13:05 EST) Pathologist [facility] Silica Clot Confirm 41.1 27.2 - 43.3 secs 06/29/2022 12:31 [facility] Silica Clot TR Ratio 1.13 <=1.16 06/29/2022 12:31 [facility] Blood VENOUS BLOOD / Unknown 06/26/2022 13:05 EST 06/27/2022 17:11 EST us Provider Outr Resulting Lab HEMATOLOGY & PF4 ORD ERABLES Final Result Performing Organization Address [facility] Co de Phone Number [facility] [address] [place] [address] * CHROMOSOME ANALYSIS (06/26/2022 13:05 EST) Pathologist [facility] CYTOGENETICS INTERPRETATION Normal female karyotype. 08/01/2022 16:39 [facility] Attestation By the signature below, the attending physician certifies that they have 1) personally conducted a gross and/or microscopic examination of the described specimen(s), and/or personally interpreted the results of laboratory testing of the described specimen(s), and 2) personally rendered or confirmed the above diagnosis. 08/01/2022 16:39 [facility] at 1639 Clinical History Recurrent Loss 08/01/2022 16:39 [facility] Testing Performed G-banded karyotype 08/01/2022 16:39 [facility] Report Cells counted: 30 Cells analyzed: 11 Cells karyotyped: 11 Band resolution: 550 08/01/2022 16:39 EST [facility] Karyotype 46,XX 08/01/2022 16:39 EST [facility] Scanned Images 08/01/2022 16:39 EST [facility] ZZUNK VENOUS BLOOD / Unknown 06/26/2022 13:05 EST 06/28/2022 8:13 EST us Provider Outr Resulting Lab PATHOLOGY ORDERABLES Final Result [facility] [address] [place] [address] * THYROPEROXIDASE ANTIBODY (06/26/2022 13:05 EST) Thyroperoxidase Ab <28 <=60 U/mL 2022 19:23 EST [facility] Blood VENOUS BLOOD / Unknown 06/26/2022 13:05 EST 06/27/2022 17:10 EST us Provider Outr Resulting Lab CHEMISTRY & BLOOD GA S ORDERABLES Final Result Performing Organization Address City/[facility]/ZIP Co de Phone Number [facility] [address] [place] [address] * (ABNORMAL) LUPUS ANTICOAGULANT CASCADE (06/26/2022 13:05 EST) [place] Summary Negative for detection of lupus anticoagulant [...] Tsai MD PhD 06/29/22 23:12 06/29/2022 23:12 [facility] Dilute Viper Venom 38.1 25.2 - 42.2 secs 06/29/2022 23:12 [facility] Silica Clotting Time 52.1(H) 30.2 - 48.4 secs 06/29/2022 23:12 [facility] Blood VENOUS BLOOD / Unknown 06/26/2022 13:05 EST 06/27/2022 17:11 EST us Provider Outr Resulting Lab HEMATOLOGY & PF4 ORD ERABLES Final Result Performing Organization Address City/State/[facility] Co de Phone Number [facility] [address] [place] [address] documented in this encounter Visit Diagnoses Diagnosis Recurrent loss documented in this encounter Care Teams Stitch Separator Relationship Specialty Start Date End Date Unknown, Provider, PCP - General 06/25/21 documented as of this encounter
--- OUTSIDE RECORDS SUMMARY | 2024-07-30 01:32 | XMS_ITS | Encounter Summary ---
Author Organization [facility] Address [address] [place] [address] Care Team Providers Care Neon Sign Installer Name Role Phone Unknown, Provider Primary Care Provider Unava ilable Encounter Details Date Type Department Care Team (Late st Contact Info) Description 04/01/2021 Lab Requisition [facility] Pathology & Laboratory Medicine - [facility] [address] [place] [address] Outr Resulting Lab, Provider Social History Tobacco [...] Comments ZZCOVID-19 TEST [facility] LAB PCR Today 03/31/2021 16:24 EDT COVID-19 TESTING Routine 03/31/2021 16:2 4 EDT documented in this encounter Results * COVID-19 TEST [facility] PCR (03/31/2021 16:24 EDT) Swab ENTIRE NASOPHARYNX / Unknown 03/31/2021 16:24 EDT 04/01/2021 16:34 EDT us Provider Outr Resulting Lab MICROBIOLOGY - GENER AL ORDERABLES Final Result [facility] [address] [place] [address] * COVID-19 TESTING (03/31/2021 16:24 EDT) COVID-19 rt-PCR Result Negative Negative 04/02/2021 11:36 EDT [facility] Comment: This test has [...] was performed using the magnus SARS-CoV-2 assay ([employer] on the Magnus 6800 System Performing Lab Magnus 6800 [facility] Lab 04/02/2021 11:36 EDT [facility] Swab 03/31/2021 16:2 4 EDT 04/01/2021 16:34 EDT us Provider Outr Resulting Lab MICROBIOLOGY - GENER AL ORDERABLES Final Result [facility] [address] [place] [address] documented in this encounter Visit Diagnoses Not on filedocumented in this encounter Care Teams Neon Sign Installer Relationship Specialty Start Date End Date Unknown, Provider, PCP - General 06/25/21 documented as of this encounter
--- OUTSIDE RECORDS SUMMARY | 2024-07-30 01:32 | XMS_ITS | Encounter Summary ---
Author Organization [facility] Address [address] [place] [address] Care Team Providers Care Property Loss Insurance Claim Adjuster Name Role Phone Unknown, Provider Primary Care Provider Elmo ilmaria guadalupe Encounter Details Date Type Department Care Team (Late st Contact Info) Description 06/26/2022 Lab Requisition [facility] Pathology & Laboratory Medicine - [facility] [address] [place] [address] Outr Resulting Lab, Provider Social History Tobacco [...] 4th Generation Negative Negative 06/28/2022 16:21 EST [facility] Comment:If acute HIV-1 infec tion is suspected in a high risk patient, submit plasma specimen for HIV-1 RNA quantitation test. Blood VENOUS BLOOD / Unknown 06/26/2022 13:05 EST 06/27/2022 17:10 EST Narrative [facility] - 06/28/2022 16:21 EST Fourth Generation assay performed on the Siemens [employer] XPT. us Provider Outr Resulting Lab IMMUNOLOGY AND SEROL OGY ORDERABLES Final Result [facility] [address] [place] [address] documented in this encounter Visit Diagnoses Not on filedocumented in this encounter Care Teams Property Loss Insurance Claim Adjuster Relationship Specialty Start Date End Date Unknown, Provider, PCP - General 06/25/21 documented as of this encounter
--- OUTSIDE RECORDS SUMMARY | 2024-07-30 01:32 | XMS_ITS | Encounter Summary ---
Author Organization [facility] Address [address] [place] [address] Care Team Providers Care Electrician Helper Powerhouse Name Role Phone Unknown, Provider Primary Care Provider Elmo ilmaria guadalupe Encounter Details Date Type Department Care Team (Late st Contact Info) Description 04/05/2024 Lab Requisition [facility] Pathology & Laboratory Medicine - [facility] [address] [place] [address] Outr Resulting Lab, Provider Social History Tobacco [...] Surface Ag Negative Negative 04/07/2024 11:50 EDT [facility] Blood VENOUS BLOOD / Unknown 04/04/2024 16:25 EDT 04/05/2024 22:07 EDT us Provider Outr Resulting Lab CHEMISTRY & BLOOD GA S ORDERABLES Final Result [facility] [address] [place], [place] [address] * HEPATITIS C AB W REFLEX TO HCV RNA BY PCR (04/04/2024 16:25 EDT) Hep C Antibody Negative Negative 04/07/2024 12:34 EDT [facility] Blood VENOUS BLOOD / Unknown 04/04/2024 16:25 EDT 04/05/2024 22:07 EDT us Provider Outr Resulting Lab CHEMISTRY & BLOOD GA S ORDERABLES Final Result [facility] [address] [place] [address] documented in this encounter Visit Diagnoses Not on filedocumented in this encounter Care Teams Electrician Helper Powerhouse Relationship Specialty Start Date End Date Unknown, Provider, PCP - General 06/25/21 documented as of this encounter
--- OUTSIDE RECORDS SUMMARY | 2024-07-30 01:32 | XMS_ITS | Encounter Summary ---
Author Organization [facility] Address [address] [place] [address] Care Team Providers Care Wet Process Miller Head Assistant Name Role Phone Unknown, Provider Primary Care Provider Unava ilable Encounter Details Date Type Department Care Team (Late st Contact Info) Description 10/17/2019 Lab Requisition [facility] Pathology & Laboratory Medicine - [address] [address] Unknown, Provider, Social History Tobacco Use Types [...] gonorrhoeae Result Negative Negative 10/20/2019 15:28 EDT [facility] Chlamydia trachomatis Result Negative Negative 10/20/2019 15:28 EDT [facility] Swab ENTIRE WALL OF CERVIX / Unknown 10/17/2019 15:30 EDT 10/17/2019 22:38 EDT us Provider Unknown MICROBIOLOGY - GENERAL ORDER STACI Final Result [facility] [address] [place] [address] documented in this encounter Visit Diagnoses Not on filedocumented in this encounter Care Teams Wet Process Miller Head Assistant Relationship Specialty Start Date End Date Unknown, Provider, PCP - General 06/25/21 documented as of this encounter
--- OUTSIDE RECORDS SUMMARY | 2024-07-30 01:32 | XMS_ITS | Encounter Summary ---
Author Organization [facility] Address [address] [place] [address] Care Team Providers Care Director Of Patient Financial Services Name Role Phone Unknown, Provider Primary Care Provider Elmo ilmaria guadalupe Encounter Details Date Type Department Care Team (Late st Contact Info) Description 10/27/2022 Lab Requisition [facility] Pathology & Laboratory Medicine - [facility] [address] [place] [address] Outr Resulting Lab, Provider Social History Tobacco [...] Surface Ag Negative Negative 10/30/2022 10:16 EDT [facility] Blood VENOUS BLOOD / Unknown 10/27/2022 14:25 EDT 10/28/2022 22:07 EDT us Provider Outr Resulting Lab CHEMISTRY & BLOOD GA S ORDERABLES Final Result [facility] [address] [place] [address] * HEPATITIS C AB W REFLEX TO HCV RNA BY PCR (10/27/2022 14:25 EDT) Hep C Antibody Negative Negative 10/30/2022 10:13 EDT [facility] Blood VENOUS BLOOD / Unknown 10/27/2022 14:25 EDT 10/28/2022 22:07 EDT us Provider Outr Resulting Lab CHEMISTRY & BLOOD GA S ORDERABLES Final Result [facility] [address] [place] [address] documented in this encounter Visit Diagnoses Not on filedocumented in this encounter Care Teams Director Of Patient Financial Services Relationship Specialty Start Date End Date Unknown, Provider, PCP - General 06/25/21 documented as of this encounter
--- OUTSIDE RECORDS SUMMARY | 2024-07-30 01:32 | XMS_ITS | Encounter Summary ---
Author Organization [facility] Address [address] [place] [address] Care Team Providers Care Plastic Injection Mold Maker Name Role Phone Unknown, Provider Primary Care Provider Unava ilable Encounter Details Date Type Department Care Team (Late st Contact Info) Description 10/27/2022 Lab Requisition [facility] Pathology & Laboratory Medicine - [facility] [address] [place] [address] Outr Resulting Lab, Provider Social History Tobacco [...] 4th Generation Negative Negative 10/30/2022 10:25 EDT [facility] Comment:If acute HIV-1 infec tion is suspected in a high risk patient, submit plasma specimen for HIV-1 RNA quantitation test. Blood VENOUS BLOOD / Unknown 10/27/2022 14:25 EDT 10/28/2022 22:07 EDT Narrative [facility] - 10/30/2022 10:25 EDT Fourth Generation assay performed on the Siemens [employer] XPT. us Provider Outr Resulting Lab IMMUNOLOGY AND SEROL OGY ORDERABLES Final Result [facility] [address] [place] [address] documented in this encounter Visit Diagnoses Not on filedocumented in this encounter Care Teams Plastic Injection Mold Maker Relationship Specialty Start Date End Date Unknown, Provider, PCP - General 06/25/21 documented as of this encounter
--- OUTSIDE RECORDS SUMMARY | 2024-07-30 01:32 | XMS_ITS | Encounter Summary ---
Author Organization [facility] Address [address] [place] [address] Care Team Providers Care Music Director Name Role Phone Unknown, Provider Primary Care Provider Unava ilable Encounter Details Date Type Department Care Team (Late st Contact Info) Description 10/27/2022 Lab Requisition [facility] Pathology & Laboratory Medicine - [facility] [address] [place] [address] Outr Resulting Lab, Provider Social History Tobacco [...] Ab Positive See Note 10/30/2022 10:40 EDT [facility] Comment:Presence of detectab le Varicella Zoster virus IgG antibodies. Blood VENOUS BLOOD / Unknown 10/27/2022 14:25 EDT 10/28/2022 22:07 EDT us Provider Outr Resulting Lab IMMUNOLOGY AND SEROL OGY ORDERABLES Final Result [facility] [address] [place] [address] * RUBELLA IGG ANTIBODY (10/27/2022 14:25 EDT) Rubella IgG Ab Positive See Note 10/30/2022 10:42 EDT [facility] Comment:Positive for IgG ant ibodies to Rubella virus. Blood VENOUS BLOOD / Unknown 10/27/2022 14:25 EDT 10/28/2022 22:07 EDT us Provider Outr Resulting Lab CHEMISTRY & BLOOD GA S ORDERABLES Final Result [facility] [address] [place] [address] documented in this encounter Visit Diagnoses Not on filedocumented in this encounter Care Teams Music Director Relationship Specialty Start Date End Date Unknown, Provider, PCP - General 06/25/21 documented as of this encounter
--- OUTSIDE RECORDS SUMMARY | 2024-07-30 01:32 | XMS_ITS | Encounter Summary ---
Author Organization [facility] Address [address] [place] [address] Care Team Providers Care Director Perioperative Name Role Phone Unknown, Provider Primary Care Provider Elmo christine Encounter Details Date Type Department Care Team (Late st Contact Info) Description 09/06/2022 Lab Requisition [facility] Pathology & Laboratory Medicine - [facility] [address] [place] [address] Outr Resulting Lab, Provider Social History Tobacco [...] 17.4 See Table ng/mL 09/06/2022 22:25 EDT [facility] Comment: Female Reference Ranges: PHYSIOLOGICAL [...] Unknown 09/06/2022 10:45 EDT 09/06/2022 21:30 EDT us Provider Outr Resulting Lab CHEMISTRY & BLOOD GA S ORDERABLES Final Result [facility] [address] [place] [address] documented in this encounter Visit Diagnoses Not on filedocumented in this encounter Care Teams Director Perioperative Relationship Specialty Start Date End Date Unknown, Provider, PCP - General 06/25/21 documented as of this encounter
--- OUTSIDE RECORDS SUMMARY | 2024-07-30 01:32 | XMS_ITS | Encounter Summary ---
Author Organization [facility] Address [address] [place] [address] Care Team Providers Care Seafood Manager Name Role Phone Unknown, Provider Primary Care Provider Elmo ilmaria guadalupe Encounter Details Date Type Department Care Team (Late st Contact Info) Description 04/29/2022 Lab Requisition [facility] Pathology & Laboratory Medicine - [facility] [address] [place] [address] Outr Resulting Lab, Provider Social History Tobacco [...] 4.7 See Note mIU/mL 05/01/2022 9:06 EST [facility] Comment: NOTE: Female Reference Ranges: Pre-Pubertal: ?<6.0 mIU/mL Menstruating: Follicular Phase(-12 to -4 days: ??1.9 - 12.5 mIU/mL Midcycle(-3 to +2 days): ?8.7 - 76.3 mIU/mL Luteal Phase(+4 to +12 days): ? 0.5 - 16.9 mIU/mL Post Menopausal: 15.9 - 54.0 mIU/mL Blood VENOUS BLOOD / Unknown 04/29/2022 7:45 EDT 04/30/2022 17:44 EST us Provider Outr Resulting Lab CHEMISTRY & BLOOD GA S ORDERABLES Final Result [facility] [address] [place] [address] * FSH (04/29/2022 7:45 EDT) FSH 8.3 See Note mIU/mL 05/01/2022 9:04 EST [facility] Blood VENOUS BLOOD / Unknown 04/29/2022 7:45 EDT 04/30/2022 17:44 EST Narrative [facility] - 05/01/2022 9:04 EST [...] S ORDERABLES Final Result Performing Organization Address [facility] de Phone Number [facility] [address] [place] [address] * PROLACTIN (04/29/2022 7:45 EDT) Prolactin 3.0 See Note ng/mL 05/01/2022 9:11 EST [facility] Comment: NOTE: Female Reference Ranges: PHYSIOLOGICAL STATUS ?REFERENCE RANGE ? Postmenopausal ?1.8 - 20.3 ng/mL ?9.7 - 208.5 ng/mL Non- ?2.8 - 29.2 ng/mL Blood VENOUS BLOOD / Unknown 04/29/2022 7:45 EDT 04/30/2022 17:44 EST Provider Outr Resulting Lab CHEMISTRY & BLOOD GA S ORDERABLES Final Result Performing Organization Address [facility] de Phone Number [facility] [address] [place] [address] * PROGESTERONE (04/29/2022 7:45 EDT) Progesterone 0.3 See Table ng/mL 04/30/2022 18:45 EST [facility] Comment: Female Reference Ranges: [...] Unknown 04/29/2022 7:45 EDT 04/30/2022 17:44 EST us Provider Outr Resulting Lab CHEMISTRY & BLOOD GA S ORDERABLES Final Result [facility] [address] [place] [address] * INSULIN (04/29/2022 7:45 EDT) Insulin 14.8 <29.0 uIU/mL 05/01/2022 9:51 EST [facility] Comment: Displayed Reference Range applies to fasting specimens only. Blood VENOUS BLOOD / Unknown 04/29/2022 7:45 EDT 04/30/2022 17:44 EST Provider Outr Resulting Lab CHEMISTRY & BLOOD GA S ORDERABLES Final Result Performing Organization Address [facility] de Phone Number [facility] [address] [place] [address] * ESTRADIOL, ADULTS (04/29/2022 7:45 EDT) [facility] Signature Estradiol 28 See Note pg/mL 04/30/2022 18:45 EST [facility] Comment: NOTE: FEMALE REFERENCE [...] Unknown 04/29/2022 7:45 EDT 04/30/2022 17:44 EST us Provider Outr Resulting Lab CHEMISTRY & BLOOD GA S ORDERABLES Final Result Performing Organization Address [facility] de Phone Number [facility] [address] [place] [address] documented in this encounter Visit Diagnoses Not on filedocumented in this encounter Care Teams Seafood Manager Relationship Specialty Start Date End Date Unknown, Provider, PCP - General 06/25/21 documented as of this encounter
--- OUTSIDE RECORDS SUMMARY | 2024-07-30 01:32 | XMS_ITS | Encounter Summary ---
Author Organization [facility] Address [address] [place] [address] Care Team Providers Care Study Abroad Coordinator Name Role Phone Unknown, Provider Primary Care Provider Unava ilable Encounter Details Date Type Department Care Team (Late st Contact Info) Description 10/27/2022 Lab Requisition [facility] Pathology & Laboratory Medicine - [facility] [address] [place] [address] Sandra Soliz, DISK RECORDIST [address] [place] [address] Encounter for other general examination [...] System with Manual Evaluation 11/08/2022 8:17 EDT [facility] Specimen Adequacy Satisfactory for Evaluation - transformation zone component absent 11/08/2022 8:17 EDT [facility] General Categorization Negative for intraepithelial lesion or malignancy 11/08/2022 8:17 EDT [facility] Attestation . 11/08/2022 8:17 EDT [facility] at 0817 Clinical History See below 11/09/19 8:17 EDT [facility] Performing Lab [facility] 11/08/2022 8:17 EDT [facility] Scanned Images 11/08/2022 8:17 EDT [facility] Papanicolaou smear specimen (specimen) CERVIX UTERI STRUCTURE / Unknown 10/27/2022 13:45 EDT 10/31/2022 9:03 EDT us Sandra POLON PATHOLOGY ORDERABLES Sylvia l Result Performing Organization Address City/[facility]/ZIP Co de Phone Number [facility] [address] [place] [address] * CHLAMYDIA/N. GONORRHOEAE AMPLIFIED RNA, THINPREP (10/27/2022 13:45 EDT) Neisseria gonorrhoeae Result Negative Negative 10/30/2022 14:31 EDT [facility] Chlamydia trachomatis Result Negative Negative 10/30/2022 14:31 EDT [facility] Papanicolaou smear specimen (specimen) CERVIX UTERI STRUCTURE / Unknown 10/27/2022 13:45 EDT 10/30/2022 9:37 EDT us Sandra Soliz APN MICROBIOLOGY - GENERAL OR DERABLES Final Result [facility] [address] [place] [address] documented in this encounter Visit Diagnoses Diagnosis Encounter for other general examination documented in this encounter Care Teams Study Abroad Coordinator Relationship Specialty Start Date End Date Unknown, Provider, PCP - General 06/25/21 documented as of this encounter
--- OUTSIDE RECORDS SUMMARY | 2024-07-30 01:32 | XMS_ITS | Referral Summary ---
Author Organization [facility] Address [address] [place] [address] Care Team Providers Care Low Vision Therapist Name Role Phone Unknown, Provider Primary Care Provider Unava ilable Encounters Date Type Department Care Team Description 05/15/2024 Lab Requisition [facility] Pathology & Laboratory Medicine - [address] [address] Outr Resulting Lab, Provider from Last 3 [...] gonorrhoeae Result Negative Negative 05/16/2024 12:35 EST [facility] Chlamydia trachomatis Result Negative Negative 05/16/2024 12:35 EST [facility] Swab VAGINAL STRUCTURE / Unknown 05/15/2024 13:30 EST 05/15/2024 22:10 EST us Provider Outr Resulting Lab MICROBIOLOGY - GENER AL ORDERABLES Final Result [facility] [address] [place] [address] * HEPATITIS C AB W REFLEX TO HCV RNA BY PCR (04/04/2024 16:25 EDT) Hep C Antibody Negative Negative 04/07/2024 12:34 EDT [facility] Blood VENOUS BLOOD / Unknown 04/04/2024 16:25 EDT 04/05/2024 22:07 EDT us Provider Outr Resulting Lab CHEMISTRY & BLOOD GA S ORDERABLES Final Result [facility] [address] [place] [address] from Last 3 Months or Most Recently Relevant to Health Maintenance Insurance [employer] Care Teams Low Vision Therapist Relationship Specialty Start Date End Date Unknown, Provider, PCP - General 06/25/21
[2024-07-30 08:55] LABS: Glucose,1 Hr (Glucola) 100 mg/dL (80-140)
[2024-07-30 15:40] LABS: HCT 33.4 % (36.0-46.0); HGB 11.3 g/dL (11.2-15.7); MCH 29.9 pg (27.0-33.0); MCHC 33.8 % (32.0-36.0); MCV 88 fL (80-95); Platelet Count 265 10^3/uL (130-400); RBC 3.78 10^6/uL (3.93-5.22); RDW 13.2 % (11.7-14.6); RDW-SD 42.6 fL; WBC 11.07 10^3/uL (4.4-10.8)
== END 2024-07-30 00:59 | disposition home or self-care (01) ==
LOC: LBO 00:58
PROVIDERS: Visit Provider Advanced Practice Midwife
DX: Z34.92 Encounter for supervision of normal pregnancy, unspecified, second trimester (principal)
CPT/HCPCS: 36415; 82950; 85027

== ENCOUNTER 2024-10-01 08:51 | Outpatient (REF) | payer OTHER, SELFPAY | END 2024-10-01 08:52 | disposition home or self-care (01) | LOC: LBN 08:51 | PROVIDERS: Visit Provider Advanced Practice Midwife | DX: Z34.93 Encounter for supervision of normal pregnancy, unspecified, third trimester (principal) | CPT/HCPCS: 87081 ==

== ENCOUNTER 2024-10-18 16:00 | Observation (INO) | payer OTHER, SELFPAY ==
--- NOTE | 2024-10-18 16:04 | HPE_ITS ---
Date of service: 10/18/24 Time of Service: 16:04 Assessment and Plan Assessment and plan (1) Precipitate labor, delivered, current hospitalization: Status: Acute Assessment and plan: A: Unintended home after 30 minute precipitous labor Reportedly uncomplicated delivery and third stage at home Pt presents well-appearing and caring for self and infant competently P Admit for outpt observation, care and overnight stay CBC on arrival, maternal inspection for injury, support as needed; placental inspection Expect discharge tomorrow morning OB-HPI Labor/Delivery History of Present Illness Reason for Visit: unintended home delivery at term, care Chief Complaint: Other (precipitous , here for evaluation and care). ANDRE Calculator Estimated Delivery Date Method Current WG Current Estimate 10/26/24 Ultrasound #1 38w 6d Comments: Pt reports onset of contractions at 2330 last night while preparing for bed, was in the bathroom when her water broke and she felt the baby coming, she got into the bath tub (no water) and delivered assisted by her mother, was tub side for support, time 0020 today. They had a precip kit on hand and called the center, coached through the third stage by CNM on the phone, placenta delivered @ 0029. Pt arrives to unit in good spirits accompanied by and oldest daughter, ambulating easily and feeling well, placenta in container for inspection, well. History of Present Expected Delivery Route/Plan - CNM FOB/ - Stephen Chowdary (3rd child together) BG Plans unmedicated delivery Specific Issues/Plan 1. BMI 33, early [id number], 28wk 100 2. cfDNA low risk female, known CF & SMA carrier positive, FOB is carrier negative, AFP- declined 3. Low dose ASA recommended d/t BMI and fam hx, pt declines 4. Hx precip labor with 2nd Assessment: History Reviewed & Current Review of Systems Narrative: See HPI PFSH All Active Problems (Updated 10/18/24 @ 16:20 by Mary Peters) Precipitate labor, delivered, current hospitalization (Acute) Penicillin allergy (Acute) BMI 35.0-35.9,adult (Acute) Medical History (Updated 10/18/24 @ 16:20 by Mary Peters) History of precipitous delivery care following vaginal delivery Lactating mother Carrier of spinal muscular atrophy FOB tested in 2019 and is negative Cystic fibrosis carrier FOB was tested in 2019 and found to be negative Recurrent loss History of miscarriage Infertility management Injury, crush, knee Surgical History S/P tonsillectomy Family History Mother Breast cancer Thyroid disorder Graves disease - thyroidectomy Maternal Grandmother Breast cancer Paternal Grandmother Breast cancer Sister Diabetes type 1, half sister Father Gout High bone marrow iron stores Hypertension Social History Smoking/Tobacco Use Status: Never Smoking risk assessment performed?: Yes Alcohol Intake: never Drug use: Never Substance use type: does not use Housing: house Current gender identity: female Do you feel safe at home: Yes Do you feel safe in your relationship?: Yes History History 6 Para 3 Hx # Term Pregnancies 2 Multiple births 0 Hx # Pregnancies 0 Ectopic pregnancies 0 AB induced 0 Hx Number of Living Children 2 AB spontaneous 3 Past Pregnancies Del. 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 Delivery Date: 10/07/21 Last Updated by: Sandra Soliz CNM SAB no complications Delivery Date: 05/01/23 Last Updated by: Sandra Garner CNM precipitous labor while working and delivery. Luna Meds Allergies and Home Medications Allergies Allergy/AdvReac Type Severity Reaction Status Date / Time Penicillins Allergy Severe SERUM Verified 10/13/24 14:37 SICKNESS Home Medications ?Medication ?Instructions ?Recorded ?Confirmed ?Type vits no.126-ferrous fum 1 tab PO DAILY 10/27/22 10/13/24 History 28 mg iron-folic acid 800 mcg tablet (Classic ) Exam Physical Exam Vital Signs Reviewed: Yes Constitutional Constitutional: no acute distress, average body habitus and cooperative HEENT Exam HEENT Exam: Normal Neck Exam Neck Exam: Normal Chest/Brest/Axilla Exam Chest Exam: Normal Breast Exam Breast Exam: Normal (lactating, nipples uninjured, bilaterally soft) Respiratory Exam Respiratory Exam: Normal Cardiovascular Exam Cardiovascular Exam: Normal Abdominal Exam Abdominal Exam: Normal (soft , nontender) Detailed Abdominal Exam Comments: fundus firm below umbilicus Rectal Exam Rectal Exam: Normal Exam Exam: Normal (no lacerations, intact perineum) Extremities Exam Extremities Exam: Normal Back/Spine/Pelvis Exam Back Exam: Normal Skin Exam Skin Exam: Normal Neurological Exam Neurological Exam: Normal Psychiatric Exam Psychiatric Exam: Normal Results Results Group Beta Strep: Negative Blood Type: A+ Rubella Status: Immune Varicella Immunity: Immune Risk Assessment Risk for Shoulder Dystocia Historical/Initial OB: POSITIVE FOR: Pre- BMI>30; NEGATIVE FOR: Pelvic Abnormality, Previous Shoulder Dystocia or Previous Macrosomia 36 Weeks: NEGATIVE FOR: Current Gestational DM, EFW>4500gms or Maternal Weight Gain>40lbs Increased Risk?: No Delivery Plan @ 36wks: Risk for Pre-Eclampsia Date Initiated/Initials: reviewed risks with pt, low dose ASA declined. 04/16/24 jk Yes, if one or more: NEGATIVE FOR: Hx Pre-E/Gest HTN, Chronic HTN, Multiple Gestation, Pre-gestational DM, Renal Disease, Systemic Lupus or APA Syndrome Yes, if 2 or more: POSITIVE FOR: BMI>30 and Mother/Sister w/ Pre-E (1/2 sisters x 2); NEGATIVE FOR: Nulliparity, Age>= 35 yrs, >10yr btwn pregnancies, ethinicty or Previous IUGR Risk for Post- Hemorrhage Initial: NEGATIVE FOR: Multiple Gestation, Previous PPH, Known Clotting Deficiency, Grand Multiparity or Anticoagulation 36 Weeks: NEGATIVE FOR: Anemia, hgb<10, Low platelets(thrombocytopenia), Gestational HTN or Pre-E, Polyhydraminios or EFW>4500gms At Risk?: No Counseled re: Active Management: Yes Risks Reviewed Risks Reviewed Upon Admission: Yes
[2024-10-18 16:25] LABS: Abs Immature Grans 0.06 10^3/uL (0.0-0.06); Absolute Basophil Count 0.03 10^3/uL (0.0-0.2); Absolute Eosinophil Count 0.14 10^3/uL (0.0-0.7); Absolute Lymphocyte Count 2.08 10^3/uL (1.2-3.4); Absolute Monocyte Count 0.69 10^3/uL (0.1-0.8); Absolute Neutrophil Count 8.48 10^3/uL (1.2-6.7); Basophils % 0.3 %; Eosinophils % 1.2 %; HCT 34.2 % (36.0-46.0); HGB 11.3 g/dL (11.2-15.7); Immature Grans % 0.5 %; Lymphocytes % 18.1 %; MCH 29.4 pg (27.0-33.0); MCV 89 fL (80-95); MPV 10.8 fL (8.0-11.0); Neutrophils % 73.9 %; Platelet Count 254 10^3/uL (130-400); RBC 3.84 10^6/uL (3.93-5.22); RDW 14.1 % (11.7-14.6); WBC 11.47 10^3/uL (4.4-10.8)
[2024-10-18 17:13] VITALS: BP 138/85; PULSE 94; RESP 18; TEMP 37
[2024-10-18 20:00] VITALS: BP 130/85; PULSE 94; RESP 18; TEMP 36.9
[2024-10-19 01:43] VITALS: BP 144/80; PULSE 94; RESP 18
[2024-10-19 04:51] VITALS: BP 115/81
--- NOTE | 2024-10-19 07:17 | OBPPV_ITS ---
Date of service: 10/19/24 Time of Service: 07:17 Assessment and Plan Assessment and plan (1) Precipitate labor, delivered, current hospitalization: Status: Acute Assessment and plan: A: PPD#1, nml recovery, processing events of delivery going well, P: Will discharge to home today Written instructions reviewed and given to pt F/up at 2 & 6 wks Undecided regarding contraception, perhaps diaphragm Subjective Subjective Patient comments: No complaints, Pain well controlled, Tolerating diet and Flatus present Patient's Mood: happy [place] baby status: Doing well, Nursing well, Rooming in and Strong Bonding Observed [place] feeding status: Exclusively breast feeding Exam Physical Exam Vital signs: Temp Pulse Resp BP 98.4 F 94 H 18 115/81 10/18/24 20:00 10/19/24 01:43 10/19/24 01:43 10/19/24 04:51 Vital Signs Reviewed: Yes Constitutional Constitutional: no acute distress HEENT Exam HEENT Exam: Normal Neck Exam Neck Exam: Normal Breast Exam Bilateral: Breast Exam: Normal and Soft Nipple Exam: Normal and Uninjured Respiratory Exam Respiratory Exam: Normal Cardiovascular Exam Cardiovascular Exam: Normal Abdominal Exam Abdomen: Other (soft, nontender) Fundal Exam Fundus: Below Umbilicus and Firm Rectal Exam Rectal Exam: Normal Exam Perineum: Intact Extremities Exam Extremity Exam: Normal Back/Spine/Pelvis Exam Back Exam: Normal Skin Exam Skin Exam: Normal Neurological Exam Neurological Exam: Normal Psychiatric Exam Psychiatric Exam: Normal Results Hemoglobin/Hematocrit: Hgb 11.3 g/dL (11.2-15.7) 10/18/24 16:15 Hct 34.2 % (36.0-46.0) L 10/18/24 16:15 Abnormal Lab Findings: Abnormal Labs 10/18/24 16:15 WBC 11.47 H RBC 3.84 L Hct 34.2 L Absolute Neutrophils 8.48 H
--- NOTE | 2024-10-19 07:24 | W.PM.OBDISCH ---
Date of service: 10/19/24 Time of Service: 07:25 DS: Diagnosis Discharge Diagnosis (1) Precipitate labor, delivered, current hospitalization: Status: Acute Discharge Plan Disposition Patient Disposition: Home Condition: Good Discharge Details Reason For Visit: unintended home delivery at term, care Admit Date/Time: 10/18/24 16:03 Admit Provider: Mary Peters Attending Provider: Mary Petesr Primary Care Provider: Unknown,Unknown Home Meds and New Rx's Prescriptions: No Action Classic 28 mg iron- 800 mcg tablet 1 tab PO DAILY Discharge Instructions Additional Instructions: Please keep your 2 and 5 week appoinments, they can be changed to telehealth if you prefer, call for any and all concerns Stand Alone Forms: BC Instructions, BC Post Vaginal Deliver Activity:: Activity as Tolerated Equipment/Supplies:: No Equipment Needed Diet:: Normal Diet OB:DS Summary Contraception Discussed Contraception Discussed: Yes Contraceptive Plan: Undecided, Status at Discharge Functional status at discharge: independent ambulation Overall status at discharge: patient is progressing back to baseline Mental Status: mental status grossly normal Speech and Movement: speech and movement normal and speech clear Mood: congruent mood Affect: normal affect Quality:SDOH Health Related Social Needs: No Data to Display Exam Physical Exam Vital signs: Temp Pulse Resp BP 98.4 F 94 H 18 115/81 10/18/24 20:00 10/19/24 01:43 10/19/24 01:43 10/19/24 04:51 Vital Signs Reviewed: Yes Constitutional Constitutional: no acute distress HEENT Exam HEENT Exam: Normal Neck Exam Neck Exam: Normal Breast Exam Bilateral: Breast Exam: Normal and Soft Respiratory Exam Respiratory Exam: Normal Cardiovascular Exam Cardiovascular Exam: Normal Abdominal Exam Abdomen: Other (soft, nontender) Fundal Exam Fundus: Below Umbilicus and Firm Rectal Exam Rectal Exam: Normal Exam Perineum: Intact Extremities Exam Extremity Exam: Normal Back/Spine/Pelvis Exam Back Exam: Normal Skin Exam Skin Exam: Normal Neurological Exam Neurological Exam: Normal Psychiatric Exam Psychiatric Exam: Normal PFSH All Active Problems (Updated 10/18/24 @ 16:20 by Mary Peters) Precipitate labor, delivered, current hospitalization (Acute) Penicillin allergy (Acute) BMI 35.0-35.9,adult (Acute) Medical History (Updated 10/18/24 @ 16:20 by Mary Peters) History of precipitous delivery care following vaginal delivery Lactating mother Carrier of spinal muscular atrophy FOB tested in 2019 and is negative Cystic fibrosis carrier FOB was tested in 2019 and found to be negative Recurrent loss History of miscarriage Infertility management Injury, crush, knee Surgical History S/P tonsillectomy Family History Mother Breast cancer Thyroid disorder Graves disease - thyroidectomy Maternal Grandmother Breast cancer Paternal Grandmother Breast cancer Sister Diabetes type 1, half sister Father Gout High bone marrow iron stores Hypertension Social History Smoking/Tobacco Use Status: Never Smoking risk assessment performed?: Yes Alcohol Intake: never Drug use: Never Substance use type: does not use Housing: house Current gender identity: female Do you feel safe at home: Yes Do you feel safe in your relationship?: Yes History History 6 Para 3 Hx # Term Pregnancies 2 Multiple births 0 Hx # Pregnancies 0 Ectopic pregnancies 0 AB induced 0 Hx Number of Living Children 2 AB spontaneous 3 Past Pregnancies Del. Date GA/Weeks # Preg Succ Route Wgt Sex Labor Lgth Anesthesia Location Prov Complic 02/04/19 6 05/08/20 38 No Yes vaginal 8 lb 3.4 oz Female 6 CARLTON Hodges 10/07/21 6 05/02/22 6 No No 05/01/23 38 No Yes vaginal 7 lb 14.45 oz Female 1hr 40 min [place] Shipman Delivery Date: 02/04/19 Last Updated by: Sandra Soliz CNM SAB no interventions Delivery Date: 05/08/20 Last Updated by: VAISHALI Del Rosario; 2nd degree laceration, repaired. Delivery Date: 10/07/21 Last Updated by: Sandra Soliz CNM SAB no complications Delivery Date: 05/01/23 Last Updated by: Sandra Garner CNM precipitous labor while working and delivery. Luna OBANDO: Data Vitals/I&O Vitals and I&O: Vital Signs Temperature 98.4 F 10/18/24 20:00 Temperature Source Oral 10/18/24 20:00 Pulse 94 H 10/19/24 01:43 Pulse Rhythm Regular 10/18/24 20:00 Respiratory Rate 18 10/19/24 01:43 Blood Pressure 115/81 10/19/24 04:51 Blood Pressure Mean 92 10/19/24 04:51 Intake & Output 10/18/24 10/18/24 10/19/24 11:59 23:59 11:59 Other: Urine Color Pale Data Completed and Pending Labs on day of discharge: Labs from last 24 hours 10/18/24 16:15 WBC 11.47 H RBC 3.84 L Hgb 11.3 Hct 34.2 L MCV 89 MCH 29.4 MCHC 33.0 RDW 14.1 Plt Count 254 MPV 10.8 Immature Gran % 0.5 Neutrophils % 73.9 Lymphocytes % 18.1 Monocytes % 6.0 Eosinophils % 1.2 Basophils % 0.3 Nucleated RBC % 0.0 Absolute Neutrophils 8.48 H Absolute Lymphocytes 2.08 Absolute Monocytes 0.69 Absolute Eosinophils 0.14 Absolute Basophils 0.03
[2024-10-19 10:04] VITALS: BP 116/81; PULSE 92; TEMP 36.9
== END 2024-10-19 10:20 | disposition home or self-care (01) ==
PROVIDERS: Admitting Provider Advanced Practice Midwife; Visit Provider Advanced Practice Midwife
DX: Z39.0 Encounter for care and examination of mother immediately after delivery (principal); Z14.1 Cystic fibrosis carrier; Z14.8 Genetic carrier of other disease
CPT/HCPCS: 85025; G0378